=== PATIENT | male | born 1935 | race Caucasian/White ===

== ENCOUNTER → 2016-03-26 | Outpatient (CLI) | payer MEDICARE, OTHER ==
[~2016-03-26] MED LIST: ASPI325T PO; AUGM875T PO; BACT800T5 PO; CARV3.125 PO; CEFT500T3 PO; COLA100C3 PO; DIGO.125 PO; DIPH25 PO; DIPH25CA PO; DOCU1CAP39 PO; FISH1000 PO; FISH100020 PO; FURO20TA PO; FURO40TA PO; HYDR-3516 PO; HYDR-3533 PO; KLOR25PO2; MULT1TAB84 PO; NITR0.4S SL; POTA1TAB4 PO; PRAD150C PO; PRED20 PO; RAMI10CA PO; RANI150 PO; SIMV20TA PO; SIMV40TA PO; SPIR25TA PO; TAB-TAB PO; TOPR50TA PO; VITA100018 PO; VITA100064 PO; ZOFR4TAB3 SL
[2016-03-26 13:03] LABS: AUTOMATED NEUTROPHIL # 5.1 TH/MM3 (1.8-7.7); BASOPHIL # 0.1 TH/MM3 (0-0.2); BASOPHIL % 1.1 % (0.0-2.0); EOSINOPHIL # 0.5 TH/MM3 (0-0.4); EOSINOPHIL % 5.4 % (0.0-4.0); HEMATOCRIT 41.9 % (39.0-51.0); HEMO FLAGS DIFF FINAL; LYMPH % 23.5 % (9.0-44.0); MEAN CELL VOLUME 89.1 FL (80.0-100.0); MEAN CORPUSCULAR HEMOGLOBIN 29.3 PG (27.0-34.0); MEAN CORPUSCULAR HGB CONC 32.8 % (32.0-36.0); MONO % 9.8 % (0.0-8.0); NEUT % 60.2 % (16.0-70.0); PLATELET COUNT 204 TH/MM3 (150-450); WHITE BLOOD COUNT 8.4 TH/MM3 (4.0-11.0)
[2016-03-26 13:44] LABS: ANION GAP 5 MEQ/L (5-15); AST (GOT) 18 U/L (15-37); BICARBONATE 29.3 MEQ/L (21.0-32.0); BLOOD UREA NITROGEN 39 MG/DL (7-18); CHLORIDE 106 MEQ/L (98-107); GLOMERULAR FILTRATION RATE 52 ML/MIN (>89); POTASSIUM 4.9 MEQ/L (3.5-5.1); SODIUM (NA) 140 MEQ/L (136-145)
[2016-03-26 13:55] LABS: ALKALINE PHOSPHATASE 55 U/L (45-117); ALT (GPT) 18 U/L (12-78); HDL CHOLESTEROL 49.3 MG/DL (40.0-60.0); LDL CHOLESTEROL 46 MG/DL (0-99); TOTAL BILIRUBIN ADULT 0.5 MG/DL (0.2-1.0)
== END ==
LOC: PLAB 03-23 11:57
PROVIDERS: ATTEND Internal Medicine
DX: E78.5 Hyperlipidemia, unspecified (principal); I10 Essential (primary) hypertension; N19 Unspecified kidney failure; Z00.00 Encounter for general adult medical examination without abnormal findings
CPT/HCPCS: 36415; 80053; 80061; 84443; 85025

== ENCOUNTER 2016-05-03 19:41 | Observation (INO) | payer MEDICARE, OTHER ==
[~2016-05-03] VITALS: Ht 170.2 cm; Wt 119.5 kg
[~2016-05-03 19:41] MED LIST changes: -ASPI325T PO; -BACT800T5 PO; -CARV3.125 PO; -CEFT500T3 PO; -COLA100C3 PO; -DIPH25CA PO; -FISH100020 PO; -FURO20TA PO; -FURO40TA PO; -HYDR-3516 PO; -KLOR25PO2; -MULT1TAB84 PO; -NITR0.4S SL; -POTA1TAB4 PO; -SIMV40TA PO; -SPIR25TA PO; -VITA100064 PO
[2016-05-03 20:33] VITALS: BP 156/73; PULSE 65; RESP 18; TEMP 99.1; O2SAT 96
[2016-05-03 22:00] VITALS: BP 126/73; PULSE 68; RESP 18; TEMP 98; O2SAT 93
[2016-05-03 22:26] VITALS: BP 156/73; PULSE 65; RESP 18; TEMP 99.1; O2SAT 96
[2016-05-03] MEDS ORDERED: MORPHINE SULFATE 4 MG/ML INJ IV PUSH ONE (22:45)
[2016-05-03] MEDS ORDERED: ONDANSETRON HCL 4 MG/2 ML VIAL IVP ONE (22:45)
[2016-05-03] MEDS ORDERED: RAMI10CA PO (22:54)
[2016-05-03] MEDS ORDERED: SPIR25TA PO (22:54)
[2016-05-03] MEDS ORDERED: NITR0.4S SL (22:54)
[2016-05-03] MEDS ORDERED: FURO20TA PO (22:54)
[2016-05-03] MEDS ORDERED: KLOR25PO2 (22:54)
[2016-05-03] MEDS ORDERED: FISH100020 PO (22:54)
[2016-05-03] MEDS ORDERED: SIMV40TA PO (22:54)
[2016-05-03] MEDS ORDERED: VITA100064 PO (22:54)
[2016-05-03] MEDS ORDERED: DIPH25CA PO (22:54)
[2016-05-03] MEDS ORDERED: PRAD150C PO (22:54)
[2016-05-03] MEDS ORDERED: MULT1TAB84 PO (22:54)
--- NOTE | 2016-05-03 22:55 | PD ---
HPI Chief Complaint: Abdominal Pain Time Seen by Provider: 22:44 Travel History International Travel<30 days: No Contact w/Intl Traveler<30days: No Traveled to known affect area: No History of Present Illness HPI 80-year-old male presents to the emergency department by private transportation for complaint of abdominal pain since approximately 10 this morning. Patient has noticed over the past 3 days that on Saturday had a loose stool Saturday and Saturday and a small stool today had a small bowel movement while in the waiting room but started noticing right-sided abdominal pain right lower quadrant pain that has progressively worsened with feeling of distention and bloating for stool production some flatus and increased eructation. Patient is status post appendectomy. Patient has history of previous diverticulitis. Patient does not report any chest pain or shortness of breath but does note abdominal pain worsens when he takes a deep breath. No recent respiratory illness febrile illness or antibiotic. Patient denies dysuria frequency urgency or hematuria. Patient is prescribed Pradaxa for history of atrial fibrillation. PFSH Past Medical History Narrative Medical Atrial fibrillation cardiac catheterization with stent placement [place] CAD AICD/ pacemaker dyslipidemia CHF hypertension kidney stone diverticulitis prostate cancer skin cancer tonsillectomy appendectomy; occasional alcohol use; nursing notes reviewed Hx Anticoagulant Therapy: Yes (PRADAXA) Atrial Fibrillation: Yes Heart Rhythm Problems: Yes (AFIB) Cancer: Yes (approximately) Cardiac Catheterization: Yes Cardiovascular Problems: Yes (AICD) High Cholesterol: Yes Chemotherapy: No Chest Pain: No Congestive Heart Failure: Yes Coronary Artery Disease: Yes Diminished Hearing: No Endocrine: No Gastrointestinal Disorders: Yes ( DIVERTICULITIS) Genitourinary: Yes Hypertension: Yes Immune Disorder: No Implanted Vascular Access Dvce: Yes Kidney Stones: Yes Musculoskeletal: No Neurologic: No Psychiatric: No Reproductive: No Respiratory: No Immunizations Current: Yes Myocardial Infarction: Yes (2003) Radiation Therapy: Yes (LEFT EAR) Renal Failure: No Past Surgical History Abdominal Surgery: No AICD: Yes (SEP) Appendectomy: Yes Arteriovenous Shunt: No Cardiac Surgery: Yes (STENT, DEFIBRILATOR) Coronary Stent: Yes (X1) 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) Endocrine Surgery: No Eye Surgery: Yes Genitourinary Surgery: No Insulin Pump: No Joint Replacement: Yes (LEFT KNEE) Oral Surgery: No Pacemaker: Yes (PACER/DEFIB) Thoracic Surgery: No Tonsillectomy: Yes Other Surgery: Yes Social History Alcohol Use: Yes (1-2 DRINKS A DAY) Tobacco Use: No (QUIT: AGE 48) Substance Use: No Allergies-Medications (Allergen,Severity, Reaction): Coded Allergies: Isosorbide (Verified Allergy, Severe, Itching, 05/03/16) AND SWELLING Lipitor (Verified Adverse Reaction, Severe, SORE JOINTS, 05/03/16) Reported Meds & Prescriptions Reported Meds & Active Scripts Active Reported Multivitamin Adults (Multiple Vitamins W/ Minerals) 1 Tab 1 Tab PO DAILY Fish Oil 1000 mg (Harrah-3 Fatty Acids) 1 Cap Cap 1,000 Mg PO BID Nitrostat SL (Nitroglycerin) 0.4 Mg Subl 0.4 Mg SL DIRECTED PRN 1 tablet under the tongue as needed for chest pain. Repeat every 5 minutes for a total of 3 DOSES or call 911 if NO relief. Diphenhydramine (Diphenhydramine HCl) 25 Mg Cap 25 Mg PO Q6H PRN Vitamin D (Cholecalciferol) 1,000 Unit Tab 1,000 Units PO DAILY Ramipril 10 Mg Cap 10 Mg PO DAILY Simvastatin 40 Mg Tab 40 Mg PO HS Spironolactone 25 Mg Tab 25 Mg PO DAILY Pradaxa (Dabigatran) 150 Mg Cap 150 Mg PO BID Klor-Con 25 (Potassium Chloride) 25 Meq Pow 20 Furosemide 20 Mg Tab 120 Mg PO DAILY Review of Systems Except as stated in HPI: all other systems reviewed are Neg General / Constitutional: No: Fever, Chills HENT: No: Congestion Cardiovascular: No: Chest Pain or Discomfort Respiratory: No: Shortness of Breath Gastrointestinal: Positive: Nausea, Abdominal Pain, Changes in Bowel Habits, No: Vomiting, Diarrhea, Hematemesis, Hematochezia, Loss of Appetite Genitourinary: No: Urgency, Frequency, Dysuria, Flank Pain Musculoskeletal: No: Myalgias, Arthralgias Skin: No Rash Neurologic: No: Weakness, Dizziness, Syncope Psychiatric: No: Anxiety Endocrine: No: Heat Intolerance Hematologic/Lymphatic: No: Easy Bruising Physical Exam Narrative GENERAL: Well-developed well-nourished male in no acute distress no respiratory distress SKIN: Warm and dry. HEAD: Normocephalic. EYES: No scleral icterus. No injection or drainage. NECK: Supple, trachea midline. No JVD or lymphadenopathy. CARDIOVASCULAR: Regular rate and rhythm without murmurs, gallops, or rubs. RESPIRATORY: Breath sounds equal bilaterally. No accessory muscle use. GASTROINTESTINAL: Abdomen soft, right-sided abdominal tenderness without guarding or rebound right lower quadrant greater than right upper quadrant tenderness, nondistended. MUSCULOSKELETAL: No cyanosis, or edema. BACK: Nontender without obvious deformity. No CVA tenderness. Data Data Last Documented VS Vital Signs Date Time Temp Pulse Resp B/P Pulse Ox O2 Delivery O2 Flow Rate FiO2 05/04/16 02:20 62 16 140/72 93 Room Air 05/03/16 22:26 99.1 Orders Complete Blood Count With Diff (05/03/16 22:44) Comprehensive Metabolic Panel (05/03/16 22:44) Lipase (05/03/16 22:44) Urinalysis - C+S If Indicated (05/03/16 22:44) Iv Access Insert/Monitor (05/03/16 22:44) Ecg Monitoring (05/03/16 22:44) Oximetry (05/03/16 22:44) Morphine Inj (Morphine Inj) (05/03/16 22:45) Ondansetron Inj (Zofran Inj) (05/03/16 22:45) Chest, Single Ap (05/03/16 22:44) Digoxin (05/03/16 22:44) Sodium Chlor 0.9% 1000 Ml Inj (Ns 1000 M (05/03/16 22:45) Ct Abd/Pel W Iv Contrast(Rout) (05/04/16 ) Sodium Chlor 0.9% 250 Ml Inj (Ns 250 Ml (05/04/16 00:00) Iodixanol 320 Inj (Rad Ct) (Visipaque 32 (05/04/16 00:28) Sodium Chlor 0.9% 250 Ml Inj (Ns 250 Ml (05/04/16 01:00) Piperacil-Tazo 3.375 Gm Premix (Zosyn 3. (05/04/16 01:00) Potassium, Serum (K) (05/04/16 01:00) Admit Order (Ed Use Only) (05/04/16 ) ^ Saline Lock (05/04/16 02:49) Resp Oxygen Say C Titrat 1-4 L (05/04/16 ) ^ Notify Dr: Other (05/04/16 02:49) Sodium Chloride 0.9% Flush (Ns Flush) (05/04/16 09:00) Sodium Chloride 0.9% Flush (Ns Flush) (05/04/16 03:00) Consult Urology (05/04/16 02:49) Labs Laboratory Tests Test 05/03/16 05/04/16 05/04/16 23:10 00:08 01:50 White Blood Count 15.1 TH/MM3 Red Blood Count 4.92 MIL/MM3 Hemoglobin 14.3 GM/DL Hematocrit 43.9 % Mean Corpuscular Volume 89.2 FL Mean Corpuscular Hemoglobin 29.0 PG Mean Corpuscular Hemoglobin 32.5 % Concent Red Cell Distribution Width 13.4 % Platelet Count 208 TH/MM3 Mean Platelet Volume 9.7 FL Neutrophils (%) (Auto) 77.6 % Lymphocytes (%) (Auto) 10.2 % Monocytes (%) (Auto) 8.8 % Eosinophils (%) (Auto) 0.5 % Basophils (%) (Auto) 2.9 % Neutrophils # (Auto) 11.8 TH/MM3 Lymphocytes # (Auto) 1.5 TH/MM3 Monocytes # (Auto) 1.3 TH/MM3 Eosinophils # (Auto) 0.1 TH/MM3 Basophils # (Auto) 0.4 TH/MM3 CBC Comment AUTO DIFF Differential Comment AUTO DIFF CONFIRMED Platelet Estimate NORMAL Platelet Morphology Comment NORMAL Red Cell Morphology Comment NORMAL Sodium Level 137 MEQ/L Potassium Level 5.5 MEQ/L 4.7 MEQ/L Chloride Level 101 MEQ/L Carbon Dioxide Level 29.0 MEQ/L Anion Gap 7 MEQ/L Blood Urea Nitrogen 41 MG/DL Creatinine 1.90 MG/DL Estimat Glomerular Filtration 34 ML/MIN Rate Random Glucose 130 MG/DL Calcium Level 9.3 MG/DL Total Bilirubin 1.1 MG/DL Aspartate Amino Transf 39 U/L (AST/SGOT) Alanine Aminotransferase 20 U/L (ALT/SGPT) Alkaline Phosphatase 70 U/L Total Protein 7.9 GM/DL Albumin 3.4 GM/DL Lipase 116 U/L Digoxin Level 0.1 NG/ML Urine Color DANNY Urine Turbidity CLOUDY Urine pH 6.0 Urine Specific [place] 1.017 Urine Protein 30 mg/dL Urine Glucose (UA) NEG mg/dL Urine Ketones TRACE mg/dL Urine Occult Blood LARGE Urine Nitrite NEG Urine Bilirubin NEG Urine Leukocyte Esterase TRACE Urine RBC INNUM /hpf Urine WBC 6-8 /hpf Urine Squamous Epithelial 0-5 /hpf Cells Urine Bacteria NONE /hpf Microscopic Urinalysis Comment CULT NOT INDICATED MDM Medical Decision Making Medical Screen Exam Complete: Yes Emergency Medical Condition: Yes Medical Record Reviewed: Yes (is) Interpretation(s) Last Impressions Abdomen/Pelvis CT 05/04/16 0000 Signed Impressions: Service Date/Time: Wednesday, May 04, 2016 00:11 - CONCLUSION: 1. Bladder mass involving the right lateral wall of the urinary bladder with resulting obstruction of the right UVJ. 2. Colonic diverticulosis. Jayson Lopez Jr., MD Chest X-Ray 05/03/16 2244 Signed Impressions: Service Date/Time: April 22:55 - CONCLUSION: 1. Mild cardiomegaly. Mild elevation right hemidiaphragm. No focal consolidation or effusion. Osman Perez MD CBC & BMP Diagram 05/03/16 23:10 05/04/16 01:50 Vital Signs Date Time Temp Pulse Resp B/P Pulse Ox O2 Delivery O2 Flow Rate FiO2 05/04/16 02:20 62 16 140/72 93 Room Air 05/04/16 01:22 60 18 144/73 92 Room Air 05/03/16 23:38 59 18 136/61 93 Room Air 05/03/16 23:35 16 05/03/16 23:31 60 18 136/61 93 Room Air 05/03/16 22:30 20 05/03/16 22:26 99.1 65 18 156/73 96 05/03/16 22:00 98.0 68 18 126/73 93 Room Air 05/03/16 20:33 99.1 65 18 156/73 96 Differential Diagnosis Abdominal pain, diverticulitis, bowel obstruction, biliary colic, UTI, renal colic; also to consider ischemic bowel Narrative Course IV access obtained specimens collected and sent for resulting; patient administered maintenance IV fluids at 100 cc an hour, morphine sulfate 3 mg IV, Zofran 4 mg IV, patient will be kept nothing by mouth, patient sent for CT abdomen and pelvis Patient administered IV antibiotic with zosyn CT resulted and patient identified to have bladder wall mass with obstructive uropathy affecting the left ureter and left kidney with hydronephrosis and perinephric stranding; patient informed of imaging results along with daughter at bedside Plan to admit patient for obstructive uropathy renal insufficiency and bladder mass; case discussed with medicine with consult to patient's urologist Dr. Roberts' s Patient resting comfortably --no c/o pain--aware of plan for admission and transfer to [facility] with urology consult for the AM. Critical Care Narrative Aggregate critical care time was 35 minutes. Time to perform other separately billable procedures was not included in the critical care time. My time did not include minutes spent treating any other patients simultaneously or on activities that did not directly contribute to the patient's treatment. The services I provided to this patient were to treat and/or prevent clinically significant deterioration that could result in: Perforated viscus, sepsis, I provided critical care services requiring my management, as noted below: Chart data review, documentation time, medication orders and management, vital sign assessments/reviewing monitor data, ordering and reviewing lab tests, ordering and interpreting/reviewing x-rays and diagnostic studies, care of the patient and discussion of the patient with the admitting physicians. Physician Communication Physician Communication call placed to service -- per Dr Valenzuela --admit to [facility] w consult to Dr Grubbs (known to the patient) Diagnosis Primary Impression: Obstructive uropathy Additional Impressions: Renal insufficiency Bladder mass Admitting Information Admitting Physician Requests: Admit Brittani Marquis MD May 03, 2016 22:55
--- NOTE | 2016-05-03 23:03 | RADHPO ---
EXAM DATE/TIME: 05/03/2016 22:55 [facility] COMPARISON: No previous studies available for comparison. INDICATIONS : Shortness of breath; evaluate for free air. MEDICAL HISTORY : Congestive heart failure. Myocardial infarction. Afib. SURGICAL HISTORY : Pacemaker. Defibrillator. Cardiac stent. Ablation. ENCOUNTER: Initial ACUITY: 1 day PAIN SCORE: 0/10 LOCATION: Bilateral chest FINDINGS: Pacer leads are present but tips are not visualized. Heart size mildly enlarged. No focal consolidati on or effusion. Elevated right hemidiaphragm. No pneumothorax. CONCLUSION: 1. Mild cardiomegaly. Mild elevation right hemidiaphragm. No focal consolidation or effusion. Osman Perez MD on May 03, 2016 at 23:00 Board Certified Radiologist. This report was verified electronically.
[2016-05-03 23:31] VITALS: BP 136/61; PULSE 60; RESP 18; O2SAT 93
[2016-05-03 23:34] LABS: AUTOMATED NEUTROPHIL # 11.8 TH/MM3 (1.8-7.7); BASOPHIL # 0.4 TH/MM3 (0-0.2); BASOPHIL % 2.9 % (0.0-2.0); EOSINOPHIL # 0.1 TH/MM3 (0-0.4); EOSINOPHIL % 0.5 % (0.0-4.0); HEMATOCRIT 43.9 % (39.0-51.0); LYMPH % 10.2 % (9.0-44.0); LYMPHOCYTE # 1.5 TH/MM3 (1.0-4.8); MEAN CELL VOLUME 89.2 FL (80.0-100.0); MEAN CORPUSCULAR HGB CONC 32.5 % (32.0-36.0); MONO % 8.8 % (0.0-8.0); NEUT % 77.6 % (16.0-70.0); PLATELET COUNT 208 TH/MM3 (150-450); RED BLOOD COUNT 4.92 MIL/MM3 (4.50-5.90); RED CELL DISTRIBUTION WIDTH 13.4 % (11.6-17.2); WHITE BLOOD COUNT 15.1 TH/MM3 (4.0-11.0)
[2016-05-03 23:36] LABS: HEMO FLAGS AUTO DIFF
[2016-05-03 23:38] VITALS: BP 136/61; PULSE 59; RESP 18; O2SAT 93
[2016-05-03 23:42] LABS: CHLORIDE 101 MEQ/L (98-107); SODIUM (NA) 137 MEQ/L (136-145)
[2016-05-03 23:44] LABS: POTASSIUM 5.5 MEQ/L (3.5-5.1)
[2016-05-03 23:46] LABS: ANION GAP 7 MEQ/L (5-15); BLOOD UREA NITROGEN 41 MG/DL (7-18)
[2016-05-03 23:47] LABS: PLATELET ESTIMATE SMEAR NORMAL (NORMAL); PLATELET MORPHOLOGY NORMAL (NORMAL); SCAN/DIFF AUTO DIFF CONFIRMED
[2016-05-03 23:49] LABS: ALT (GPT) 20 U/L (12-78); AST (GOT) 39 U/L (15-37); GLOMERULAR FILTRATION RATE 34 ML/MIN (>89)
[2016-05-03 23:50] LABS: TOTAL BILIRUBIN ADULT 1.1 MG/DL (0.2-1.0)
[2016-05-03 23:51] LABS: ALKALINE PHOSPHATASE 70 U/L (45-117)
[2016-05-04] VITALS (10 sets, daily range): BP systolic 117–162; BP diastolic 67–83; PULSE 59–65; RESP 16–19; TEMP 97.4; O2SAT 92–99
[2016-05-04 00:15] LABS: BLOOD, URINE LARGE (NEG); GLUCOSE,URINE NEG (NEG); KETONE, URINE TRACE mg/dL (NEG); NITRITE,URINE NEG (NEG)
[2016-05-04 00:26] LABS: RBC, URINE INNUM /hpf (0-3); SQUAMOUS EPITHELIAL CELL URINE 0-5 /hpf (0-5); URINE COLOR AMBER (YELLW/STRAW)
[2016-05-04 00:27] LABS: DIGOXIN 0.1 NG/ML (0.8-2.0)
[2016-05-04 00:27] LABS: COMMENT (UR) CULT NOT INDICATED; CULTURE IF INDICATED CULT NOT INDICATED
[2016-05-04] MEDS ORDERED: IODIXANOL 320 MG/ML 10 ML VIAL (for Rad CT) IV ONE (00:28)
--- NOTE | 2016-05-04 00:50 | RADHPO ---
EXAM DATE/TIME: 05/04/2016 00:11 [facility] COMPARISON: No previous studies available for comparison. INDICATIONS : Right lower quadrant pain radiating into right groin. IV CONTRAST: 50 cc Visipaque (iodixanol) IV ORAL CONTRAST: No oral contrast ingested. RADIATION DOSE: 22.35 CTDIvol (mGy) MEDICAL HISTORY : Diverticulitis. Carcinoma, prostate. Cardiovascular disease SURGICAL HISTORY : Appendectomy. Coronary artery stent.Defibrillator. ENCOUNTER: Initial ACUITY: 1 day PAIN SCALE: 2/10 LOCATION: Right lower quadrant TECHNIQUE: Volumetric scanning of the abdomen and pelvis was performed. Using automated exposure control and ad justment of the mA and/or kV according to patient size, radiation dose was kept as low as reasonably achievable to obtain optimal diagnostic quality images. FINDINGS: LOWER LUNGS: The visualized lower lungs are clear. LIVER: Homogeneous density without lesion. There is no dilation of the biliary tree. No calcified gallston es. SPLEEN: Normal size without lesion. PANCREAS: Within normal limits. KIDNEYS: There is hydronephrosis and hydroureter on the right with stranding of the fat within the renal hilum and adjacent to the proximal ureter. No perinephric fluid collection. No stones. Left kidney is unre markable. ADRENAL GLANDS: Within normal limits. VASCULAR: Diffuse calcified plaque throughout the abdominal aorta. No aneurysmal change. BOWEL/MESENTERY: The stomach, small bowel, and colon demonstrate no acute abnormality. There is no free intraperitone al air or fluid. Scattered colonic diverticuli without acute inflammation. ABDOMINAL WALL: Within normal limits. RETROPERITONEUM: There is no lymphadenopathy. BLADDER: The urinary bladder is abnormal with a mass involving the right lateral bladder wall. This results in obstruction of the right UVJ. The mass measures approximately 6.5 x 2.0 cm. No appreciable adenopath y involving the pelvis. REPRODUCTIVE: Within normal limits. INGUINAL: There is no lymphadenopathy or hernia. MUSCULOSKELETAL: A degenerative lumbar spine. CONCLUSION: 1. Bladder mass involving the right lateral wall of the urinary bladder with resulting obstruction of the right UVJ. 2. Colonic diverticulosis. Jayson Lopez Jr., MD on May 04, 2016 at 0:43 Board Certified Radiologist. This report was verified electronically.
[2016-05-04] MEDS ORDERED: SODIUM CHLOR 0.9% 250 ML INJ 250 ML IV ONE ×2 (01:00)
[2016-05-04] MEDS ORDERED: PIPERACIL-TAZO 3.375 GM PREMIX 50 ML IV ONE (01:00)
[2016-05-04] MEDS ORDERED: SODIUM CHLORIDE 0.9% FLUSH 10 ML FLUSH IVF PRN (03:00)
[2016-05-04] MEDS ORDERED: NITROGLYCERIN 0.4 MG SL 25 TABS/BTL SL PRN (03:15)
[2016-05-04] MEDS ORDERED: MORPHINE SULFATE 4 MG/ML INJ IV PUSH PRN (03:15)
[2016-05-04] MEDS ORDERED: diphenhydrAMINE HCL 25 MG CAP PO PRN (03:15)
[2016-05-04] MEDS: cefTRIAXone INJ 1,000 MG in SODIUM CHLORIDE 0.9% INJ 100 ML IV SCH (05:01)
[2016-05-04] MEDS: SODIUM CHLOR 0.9% 1000 ML INJ 1,000 ML IV SCH ×3 (05:57→18:45)
[2016-05-04] MEDS: SODIUM CHLORIDE 0.9% FLUSH 10 ML FLUSH IV FLUSH SCH ×2 (08:52→20:44)
--- NOTE | 2016-05-04 14:24 | MH ---
cc: ROLAND BUTT MD DATE OF ADMISSION: 05/04/2016 CHIEF COMPLAINT Abdominal pain. HISTORY OF PRESENT ILLNESS This is an 80-year-old very pleasant male with past medical and surgical history significant for atrial fibrillation, cardiac catheterization with stent placement, history of heart attack, coronary artery disease, AICD and pacemaker placement, hyperlipidemia, congestive heart failure, hypertension, kidney stone, diverticulitis, prostate cancer, skin cancer, tonsillectomy, appendectomy and on Pradaxa, who came to the ER at [facility] complaining of abdominal pain since 10 o'clock yesterday morning. The patient noticed that over the last three days since Saturday he had loose stool, Saturday and Saturday had small stool yesterday and small bowel movement while in the waiting room. He started noticing right-sided abdominal pain, right lower quadrant pain that has progressively got worse and the feeling of abdominal distention and bloating for the stool production, some flatus, increased eructation. The patient is status post appendectomy. The patient has a history of previous diverticulitis. The patient does not report any chest pain or shortness of breath but does note abdominal pain worse when he takes a deep breath. No recent respiratory illness, febrile illness or antibiotic. The patient denies any frequent urination or burning urination. Recently he had some nausea and vomiting which resolved. He takes Pradaxa for atrial fibrillation. Other than that nothing significant. PAST MEDICAL HISTORY As dictated above. PAST SURGICAL HISTORY 1. Coronary stenting x1. 2. Defibrillator and pacemaker placement. 3. Left knee surgery. 4. Tonsillectomy. SOCIAL HISTORY He drinks 1-2 drinks a day. Quit smoking 50 years ago, total smoking x 20 years, one pack a day. Lives at home alone. He is retired from the [employer]. FAMILY HISTORY Significant for daughter with diverticulitis and daughter with Crohn's disease. ALLERGIES 1. ISOSORBIDE CAUSES SEVERE SWELLING. 2. LIPITOR. MEDICATIONS 1. Multivitamin p.o. daily. 2. Fish oil 1000 mg p.o. b.i.d. 3. Nitrostat sublingual 0.4 mg as directed p.r.n. chest pain. 4. Diphenhydramine 25 mg p.o. q.6h. 5. Vitamin-D 1000 units p.o. daily. 6. Ramipril 10 mg p.o. daily. 7. Simvastatin 40 mg p.o. h.s. 8. Spironolactone 25 mg p.o. daily. 9. Pradaxa 150 mg p.o. b.i.d. 10.Klor-Con 25 mEq daily. 11.Furosemide 20 mg p.o. daily. REVIEW OF SYSTEMS Positive for abdominal pain, distention, mild nausea. All other review of systems are negative. PHYSICAL EXAMINATION GENERAL: This is an 80-year-old male sitting on the bed not in acute distress. VITAL SIGNS: Temperature 99.1, heart rate 60, respirations 18, blood pressure 117/67. O2 saturation 92% on room air. HEENT: Normocephalic, atraumatic. EOMI. PERRL. Oral mucosa moist. NECK: Supple. No visible thyromegaly or neck mass. Trachea is central. CV: Regular rate and rhythm. LUNGS: Respirations clear to auscultation bilaterally. ABDOMEN: Soft. Tender on superficial palpation. Deep palpation not done. Bowel sounds audible. EXTREMITIES: No cyanosis. No clubbing. Full range of motion of all extremities. NEUROLOGIC: Awake, alert, oriented x4. No focal deficit. SKIN: Warm and dry. PSYCHIATRIC: The patient is cooperative. LABORATORY CBC showed WBC count 15.1 high, neutrophils 77.6 high, monos 8.8 high, hemoglobin and hematocrit normal, platelet count 208 normal. CMP was remarkable for potassium 5.5 which was high, now it is 4.7, BUN 41 high, creatinine 1.90 high, glucose 130 high, total bilirubin 1.1 high, AST 39 high, lipase 116, LFTs normal except for AST 39 high. Digoxin level 0.1 which is low. Urine examination showed 6-8 wbc, innumerable rbc, trace leukocyte esterase, large occult blood, ketones trace, protein 30 Culture not indicated. IMAGING Chest x-ray was done and shows mild cardiomegaly, mild elevation of right hemidiaphragm. No focal consolidation or effusion. CT abdomen and pelvis was done and shows a bladder mass involving the right lateral wall of the urinary bladder with resulting obstruction of the right UVJ. Chronic diverticulosis. ASSESSMENT AND PLAN 1. This is an 80-year-old male who came to the ER with abdominal pain, diagnosed with a bladder mass involving the right lateral wall of the urinary bladder with resulting obstruction of the right UVJ. Urology is consulted. Patient will be transferred to the [facility]. Further recommendation per urology. 2. Elevated BUN and creatinine, most likely obstructive uropathy. 3. Hematuria secondary to bladder tumor. 4. Leukocytosis. Will monitor. 5. Hyperkalemia, which has resolved. 6. Hypertension. Continue the home medication, ramipril. 7. History of atrial fibrillation. The patient is on Pradaxa. Hold the Pradaxa because of hematuria. 8. Hypokalemia. Continue home medication. 9. History of cardiac disease. Continue home medication. The patient is status post stent placement in the past and AICD and pacemaker placement. 10.History of congestive heart failure, most likely chronic or systolic heart failure. Continue the home medication. 11.History of prostate cancer. 12.History of diverticulosis which shows on the CT of the abdomen and pelvis. 13.DVT prophylaxis with SCD. 14.GI prophylaxis with Protonix 40 mg p.o. daily. 15.Hyperlipidemia. Continue pravastatin 80 mg p.o. daily. 16.Urinary tract infection. The patient is started on Rocephin one gram IV daily. 17.We are going to manage the patient on a daily basis and make recommendations on a daily basis. Roland Butt MD EA/AMI /1:31 PM /2:02 PM
[2016-05-04] MEDS: PRAVASTATIN SOD 80 MG TAB PO SCH (20:44)
--- NOTE | 2016-05-04 21:10 | MB ---
cc: CIERA GUTIÉRREZ MD DATE OF CONSULTATION 05/04/16 REASON FOR CONSULTATION 1. Bladder mass 2. Right hydronephrosis 3. History of gross hematuria 4. History of BPH status post TURP HISTORY OF PRESENT ILLNESS The patient is an 80-year-old male with history of benign prostatic hypertrophy status post TURP years ago who presented to [facility] ER last night with complaints of right-sided abdominal pain radiating to his right flank since 10 o'clock yesterday morning. In the emergency room, he had a CT abdomen and pelvis with IV contrast which showed mild right hydronephrosis with a possible mass in his bladder. Urology was consulted for this finding. In discussion with the patient, the patient started having loose stools three days ago. Over the course of next three days he started developing right-sided flank pain radiating to his right groin with a feeling of some abdominal distension and bloating. He has also had intermittent gross hematuria for the last couple months as well. Denies dysuria, urgency, frequency or incontinence. Denies unexplained weight loss or any new or unusual bone or back pain. Overnight into today his pain has significantly improved. He has been voiding on his own which has been tea-colored. He denies fevers, chills, nausea, vomiting at this time. PAST MEDICAL HISTORY 1. History of prostate cancer 2. History of kidney stones 3. Atrial fibrillation. 4. History of heart attack 5. Coronary artery disease, 6. Hypertension, 7. Diverticulitis 8. Skin cancer. PAST SURGICAL HISTORY 1. History of tonsillectomy, 2. Appendectomy 3. TURP 4. AICD and pacemaker placement 5. Cardiac catheterization with stent placement 6. Left knee surgery ALLERGIES LIPITOR MEDICATIONS 1. 2. Fish oil 3. Nitrostat. 4. Ramipril 10 mg p.o. daily. 5. Simvastatin 40 mg p.o. q.h.s. 6. Spirolactone 25 mg p.o. daily 7. Pradaxa 150 mg by mouth twice a day 8. Furosemide 20 mg p.o. daily. FAMILY HISTORY Negative for urolithiasis or genitourinary malignancy SOCIAL HISTORY Drinks 1-2 drinks a day, history of tobacco use but quit smoking 50 years ago, one-pack per day for 20 years. Lives at home alone and is retired from the [employer], REVIEW OF SYSTEMS See HPI otherwise 12-point review of systems was performed and otherwise was negative. PHYSICAL EXAMINATION VITAL SIGNS: Temperature 99,1, pulse 59, respiratory rate 80, BP 130/67, satting 99% in room air. GENERAL: He is alert and oriented x3 in no apparent distress pleasant, cooperative gentleman appears stated age. HEAD: Normocephalic, atraumatic. NECK: Supple. Trachea is midline. No JVD. LUNGS: Clear to auscultation bilaterally. No wheezes, rales or rhonchi. HEART: Regular rate and rhythm. No murmurs, gallops or rubs. ABDOMEN: Soft, obese, nontender, nondistended. Positive bowel sounds. No CVA tenderness bilaterally. GENITOURINARY:: His penis is circumcised. Testes are descended bilaterally, normal size and consistency. Prostate exam not indicated at this time. EXTREMITIES: Nontender, no clubbing, cyanosis or edema. SKIN: No ulcers or rashes. PSYCHIATRIC: Normal affect. NEUROLOGIC: cranial nerves II-XII intact. Strength 5/5 in all four extremities. LABORATORY DATA White count 15.1, hemoglobin 14.3, hematocrit 43.9, platelet count 208. Sodium 137, potassium 4.7, chloride 101, bicarb 29, BUN 41, creatinine 1.90. His urine is cloudy with a pH of 6.0 with large occult blood, trace leukocyte esterase. IMAGING STUDIES CT abdomen pelvis with IV contrast images were reviewed were radiologist personally. The patient has mild right hydronephrosis with dilated ureter down to the level of his bladder with a possible mass on the right side of his bladder. No evidence of any kidney stones. ASSESSMENT AND PLAN The patient is an 80-year-old male with a history of prostate cancer, benign prostatic hypertrophy status post TURP as well as kidney stones who presents with intermittent gross hematuria and was found to have a bladder mass with some mild right hydronephrosis and renal insufficiency. Currently the patient is asymptomatic. Recommend conservative management at this time. Monitor his renal function. Continue antibiotics per primary team. A long as the patient maintains asymptomatic, he is okay to be discharged home from urology standpoint. He will need cystoscopy and possible TURBT which can be done on an outpatient basis. However, due to his anticoagulation he ideally would have to be off the Pradaxa for seven days prior performing any procedure. Thank you for the consult. Please call with any questions. MD SHERRILL Rivera/ /4:38 PM /8:41 PM
[2016-05-05] VITALS (7 sets, daily range): BP systolic 145–167; BP diastolic 73–91; PULSE 60–69; RESP 18–20; TEMP 97.3–98.7; O2SAT 93–96
[2016-05-05] MEDS: cefTRIAXone INJ 1,000 MG in SODIUM CHLORIDE 0.9% INJ 100 ML IV SCH (04:00)
[2016-05-05] MEDS: SODIUM CHLOR 0.9% 1000 ML INJ 1,000 ML IV SCH ×3 (04:45→14:45)
[2016-05-05 07:16] LABS: HEMATOCRIT 39.1 % (39.0-51.0); MEAN CELL VOLUME 88.7 FL (80.0-100.0); MEAN CORPUSCULAR HEMOGLOBIN 29.6 PG (27.0-34.0); MEAN CORPUSCULAR HGB CONC 33.4 % (32.0-36.0); PLATELET COUNT 202 TH/MM3 (150-450); RED BLOOD COUNT 4.41 MIL/MM3 (4.50-5.90); RED CELL DISTRIBUTION WIDTH 14.1 % (11.6-17.2); REVIEW FLAG FINAL; WHITE BLOOD COUNT 11.8 TH/MM3 (4.0-11.0)
[2016-05-05 07:43] LABS: BICARBONATE 25.7 MEQ/L (21.0-32.0); POTASSIUM 4.1 MEQ/L (3.5-5.1)
[2016-05-05] MEDS: SODIUM CHLORIDE 0.9% FLUSH 10 ML FLUSH IV FLUSH SCH ×2 (08:37→20:13)
--- NOTE | 2016-05-05 10:09 | HHI.PR ---
Subjective Remarks Patient has some pain in the right lower quadrant and right paraumbilical region. He feels like a fullness and discomfort. Which was not there last night. No nausea vomiting Still no bowel movement No trouble passing urine but some blood in it. No fever or chills No chest pain or shortness of breath No headache or dizziness Review of systems a 12 point system otherwise unremarkable Objective Objective Results - Vital Signs Date Time Temp Pulse Resp B/P Pulse Ox O2 Delivery O2 Flow Rate FiO2 05/05/16 08:00 97.6 60 18 154/91 95 05/05/16 04:00 97.4 69 19 161/73 93 05/05/16 00:00 98.2 63 18 157/79 94 05/04/16 20:00 97.4 65 19 152/83 94 05/04/16 17:09 59 16 162/82 99 Room Air 05/04/16 17:09 16 05/04/16 13:00 59 18 130/67 98 I/O 05/04/16 05/04/16 05/04/16 05/05/16 05/05/16 05/05/16 07:00 15:00 23:00 07:00 15:00 23:00 Intake Total 1150 ml 240 ml 1240 ml 240 ml Output Total 650 ml 25 ml Balance 1150 ml -410 ml 1240 ml 215 ml Intake Oral 240 ml 240 ml 240 ml IV Total 1150 ml 1000 ml Output Urine Total 650 ml 25 ml # Voids 4 2 2 Result Diagram: 05/05/16 0554 05/05/16 0554 Other Results Laboratory Tests Test 05/05/16 05:54 White Blood Count 11.8 Red Blood Count 4.41 Hemoglobin 13.0 Hematocrit 39.1 Mean Corpuscular Volume 88.7 Mean Corpuscular Hemoglobin 29.6 Mean Corpuscular Hemoglobin 33.4 Concent Red Cell Distribution Width 14.1 Platelet Count 202 Mean Platelet Volume 10.0 Sodium Level 139 Potassium Level 4.1 Chloride Level 105 Carbon Dioxide Level 25.7 Anion Gap 8 Blood Urea Nitrogen 42 Creatinine 1.52 Estimat Glomerular Filtration 44 Rate Random Glucose 127 Calcium Level 8.7 Physical Exam Physical Exam GENERAL: This is an 80-year-old male sitting on the bed not in acute distress. VITAL SIGNS: Reviewed HEENT: Normocephalic, atraumatic. EOMI. PERRL. Oral mucosa moist. NECK: Supple. No visible thyromegaly or neck mass. Trachea is central. CV: Regular rate and rhythm. LUNGS: Respirations clear to auscultation bilaterally. ABDOMEN: Soft. Tender in the right lower quadrant and right paraumbilical region. No rebound no guarding no rigidity Bowel sounds audible. EXTREMITIES: No cyanosis. No clubbing. Full range of motion of all extremities. Trace edema ankles both side NEUROLOGIC: Awake, alert, oriented x4. No focal deficit. SKIN: Warm and dry. PSYCHIATRIC: The patient is cooperative. Appropriate mood and affect A/P Assessment and Plan 1. This is an 80-year-old male who came to the ER with abdominal pain, diagnosed with a bladder mass involving the right lateral wall of the urinary bladder with resulting obstruction of the right UVJ. Urology consultation appreciated. As per patient Dr. Roberts told him to have cystoscopy coming Saturday. Still having pain will monitor Further recommendation per urology. 2. Elevated BUN and creatinine, improving on IV hydration, most likely obstructive uropathy. Will monitor 3. Hematuria secondary to bladder tumor. Monitor off of Pradaxa 4. Leukocytosis. Will monitor. Improving 5. Hyperkalemia, which has resolved. 6. Hypertension. Continue the home medication, ramipril. Monitor. Keep patient on when necessary medication 7. History of atrial fibrillation. The patient is on Pradaxa. Hold the Pradaxa because of hematuria. Control heart rate will monitor 8. Continue home medication as indicated. 9. History of cardiac disease. Continue home medication. The patient is status post stent placement in the past and AICD and pacemaker placement. 10.History of congestive heart failure, most likely chronic or systolic heart failure. Continue the home medication. 11.History of prostate cancer. 12.History of diverticulosis which shows on the CT of the abdomen and pelvis. 13.DVT prophylaxis with SCD. 14.GI prophylaxis with Protonix 40 mg p.o. daily. 15.Hyperlipidemia. Continue pravastatin 80 mg p.o. daily. 16.Urinary tract infection. The patient is started on Rocephin one gram IV daily. Will continue. UA report seen 17.We are going to manage the patient on a daily basis and make recommendations on a daily basis. Discussed with patient in detail and questions answered in detail detail fashion H&P previous notes meds labs and radiological data reviewed Discussed with Andrew Amezcua MD May 05, 2016 10:08
[2016-05-05] MEDS ORDERED: cloNIDine HCL 0.1 MG TAB PO PRN (10:15)
[2016-05-05] MEDS ORDERED: MAGNESIUM HYDROXIDE SUSP 30 ML CUP PO PRN (11:00)
[2016-05-05] MEDS: PRAVASTATIN SOD 80 MG TAB PO SCH (20:13)
[2016-05-05] MEDS ORDERED: NON-FORMULARY DRUG (Omega-3 Fatty Acids (Fish Oil 1000 mg) 1,000 MG) PO SCH (21:00)
[2016-05-05] MEDS: ACETAMINOPHEN/HYDROcodone 325 MG/5 MG TAB PO PRN (23:41)
[2016-05-06] VITALS (7 sets, daily range): BP systolic 118–175; BP diastolic 58–77; PULSE 60–72; RESP 18–21; TEMP 96.7–98.6; O2SAT 93–95
[2016-05-06] MEDS: SODIUM CHLOR 0.9% 1000 ML INJ 1,000 ML IV SCH ×3 (00:45→08:45)
[2016-05-06] MEDS: cefTRIAXone INJ 1,000 MG in SODIUM CHLORIDE 0.9% INJ 100 ML IV SCH (04:00)
[2016-05-06] MEDS ORDERED: LEVOFLOXACIN 500 MG TAB PO ONE (06:00)
[2016-05-06] MEDS: CHOLECALCIFEROL (VIT D3) 1000 UNIT TAB PO SCH (08:39)
[2016-05-06] MEDS: SODIUM CHLORIDE 0.9% FLUSH 10 ML FLUSH IV FLUSH SCH ×2 (08:40→20:58)
[2016-05-06 10:16] LABS: HEMATOCRIT 40.4 % (39.0-51.0); MEAN CELL VOLUME 89.8 FL (80.0-100.0); MEAN CORPUSCULAR HEMOGLOBIN 29.8 PG (27.0-34.0); MEAN CORPUSCULAR HGB CONC 33.2 % (32.0-36.0); PLATELET COUNT 214 TH/MM3 (150-450); RED CELL DISTRIBUTION WIDTH 14.1 % (11.6-17.2); REVIEW FLAG FINAL; WHITE BLOOD COUNT 14.5 TH/MM3 (4.0-11.0)
[2016-05-06 10:45] LABS: BICARBONATE 24.3 MEQ/L (21.0-32.0); POTASSIUM 4.4 MEQ/L (3.5-5.1)
--- NOTE | 2016-05-06 10:59 | HHI.PR ---
Subjective Remarks Patient has some no pain this morning No nausea vomiting Had good bowel movement No trouble passing urine but some blood in it. No fever or chills No chest pain or shortness of breath No headache or dizziness Review of systems a 12 point system otherwise unremarkable Objective Objective Results - Vital Signs Date Time Temp Pulse Resp B/P Pulse Ox O2 Delivery O2 Flow Rate FiO2 05/06/16 08:00 97.2 70 20 127/59 95 05/06/16 04:00 96.7 72 21 118/58 94 05/06/16 00:00 98.6 60 20 133/61 93 05/05/16 20:00 98.7 61 19 150/76 94 05/05/16 16:00 97.5 60 18 167/85 95 05/05/16 12:00 97.3 60 20 145/79 95 I/O 05/05/16 05/05/16 05/05/16 05/06/16 05/06/16 05/06/16 07:00 15:00 23:00 07:00 15:00 23:00 Intake Total 240 ml 840 ml Output Total 25 ml 500 ml 200 ml Balance 215 ml 340 ml -200 ml Intake Oral 240 ml 840 ml Output Urine Total 25 ml 500 ml 200 ml # Voids 2 3 2 # Bowel Movements 2 Result Diagram: 05/06/16 0955 05/05/16 0554 Other Results Laboratory Tests Test 05/06/16 09:55 White Blood Count 14.5 Red Blood Count 4.50 Hemoglobin 13.4 Hematocrit 40.4 Mean Corpuscular Volume 89.8 Mean Corpuscular Hemoglobin 29.8 Mean Corpuscular Hemoglobin 33.2 Concent Red Cell Distribution Width 14.1 Platelet Count 214 Mean Platelet Volume 9.7 Physical Exam Physical Exam GENERAL: This is an 80-year-old male sitting on the bed not in acute distress. VITAL SIGNS: Reviewed HEENT: Normocephalic, atraumatic. EOMI. PERRL. Oral mucosa moist. NECK: Supple. No visible thyromegaly or neck mass. Trachea is central. CV: Regular rate and rhythm. LUNGS: Respirations clear to auscultation bilaterally. ABDOMEN: Soft. Tender in the right lower quadrant and right paraumbilical region. No rebound no guarding no rigidity Bowel sounds audible. EXTREMITIES: No cyanosis. No clubbing. Full range of motion of all extremities. Trace edema ankles both side NEUROLOGIC: Awake, alert, oriented x4. No focal deficit. SKIN: Warm and dry. PSYCHIATRIC: The patient is cooperative. Appropriate mood and affect A/P Assessment and Plan 1. This is an 80-year-old male who came to the ER with abdominal pain, diagnosed with a bladder mass involving the right lateral wall of the urinary bladder with resulting obstruction of the right UVJ. Urology consultation appreciated. As per patient Dr. Roberts told him to have cystoscopy coming Saturday. Still having pain on and off. Will monitor. Patient is off of Ranexa from last 2. Elevated BUN and creatinine, improving on IV hydration, most likely obstructive uropathy. Will monitor 3. Hematuria secondary to bladder tumor. Monitor off of Pradaxa. Better no more blood in urine as per patient 4. Leukocytosis. Will monitor. Improving 5. Hyperkalemia, which has resolved. 6. Hypertension. Continue the home medication, ramipril. Monitor. Keep patient on when necessary medication 7. History of atrial fibrillation. The patient is on Pradaxa. Off of Pradaxa because of hematuria and for cystoscopy tomorrow. Control heart rate will monitor 8. Continue home medication as indicated. 9. History of cardiac disease. Continue home medication. The patient is status post stent placement in the past and AICD and pacemaker placement. 10. History of congestive heart failure, most likely chronic or systolic heart failure. Continue the home medication. 11.History of prostate cancer. 12.History of diverticulosis which shows on the CT of the abdomen and pelvis. 13.DVT prophylaxis with SCD. 14.GI prophylaxis with Protonix 40 mg p.o. daily. 15.Hyperlipidemia. Continue pravastatin 80 mg p.o. daily. 16.Urinary tract infection. The patient is started on Rocephin one gram IV daily. Will continue. UA report seen 17.We are going to manage the patient on a daily basis and make recommendations on a daily basis. Discussed with patient in detail and questions answered in detail detail fashion H&P previous notes meds labs and radiological data reviewed Discussed with Andrew Amezcua MD May 06, 2016 10:59
[2016-05-06] MEDS: PRAVASTATIN SOD 80 MG TAB PO SCH (20:57)
[2016-05-07] VITALS: BP 138/63; PULSE 60; RESP 21; TEMP 98.6; O2SAT 92
[2016-05-07] MEDS: ACETAMINOPHEN/HYDROcodone 325 MG/5 MG TAB PO PRN ×3 (02:07→11:57)
[2016-05-07 04:00] VITALS: BP 164/80; PULSE 60; RESP 20; TEMP 96.6; O2SAT 94
[2016-05-07] MEDS: cefTRIAXone INJ 1,000 MG in SODIUM CHLORIDE 0.9% INJ 100 ML IV SCH (04:09)
[2016-05-07 08:00] VITALS: BP 143/86; PULSE 60; RESP 22; TEMP 97; O2SAT 95
[2016-05-07] MEDS: CHOLECALCIFEROL (VIT D3) 1000 UNIT TAB PO SCH (08:43)
[2016-05-07] MEDS: SODIUM CHLORIDE 0.9% FLUSH 10 ML FLUSH IV FLUSH SCH (08:45)
--- NOTE | 2016-05-07 11:12 | HHI.PR ---
Subjective Remarks Patient has some no pain this morning No nausea vomiting Had good bowel movement No trouble passing urine but some blood in it. No fever or chills No chest pain or shortness of breath No headache or dizziness Review of systems a 12 point system otherwise unremarkable Objective Objective Results - Vital Signs Date Time Temp Pulse Resp B/P Pulse Ox O2 Delivery O2 Flow Rate FiO2 05/07/16 08:00 97.0 60 22 143/86 95 05/07/16 04:00 96.6 60 20 164/80 94 05/07/16 00:00 98.6 60 21 138/63 92 05/06/16 22:48 152/77 05/06/16 20:00 97.7 62 20 175/76 95 05/06/16 16:00 98.6 60 18 156/74 93 05/06/16 12:00 93 05/06/16 12:00 98.1 60 20 125/66 95 I/O 05/06/16 05/06/16 05/06/16 05/07/16 05/07/16 05/07/16 07:00 15:00 23:00 07:00 15:00 23:00 Intake Total 600 ml 480 ml 976 ml 960 ml Balance 600 ml 480 ml 976 ml 960 ml Intake Oral 600 ml 480 ml 240 ml 960 ml IV Total 736 ml # Voids 2 8 4 1 # Bowel Movements 2 1 1 Result Diagram: 05/06/1655 05/06/16954 Physical Exam Physical Exam GENERAL: This is an 80-year-old male sitting on the bed not in acute distress. VITAL SIGNS: Reviewed HEENT: Normocephalic, atraumatic. EOMI. PERRL. Oral mucosa moist. NECK: Supple. No visible thyromegaly or neck mass. Trachea is central. CV: Regular rate and rhythm. LUNGS: Respirations clear to auscultation bilaterally. ABDOMEN: Soft. Nontender. No rebound no guarding no rigidity Bowel sounds audible. EXTREMITIES: No cyanosis. No clubbing. Full range of motion of all extremities. Trace edema ankles both side NEUROLOGIC: Awake, alert, oriented x4. No focal deficit. SKIN: Warm and dry. PSYCHIATRIC: The patient is cooperative. Appropriate mood and affect A/P Assessment and Plan 1. This is an 80-year-old male who came to the ER with abdominal pain, diagnosed with a bladder mass involving the right lateral wall of the urinary bladder with resulting obstruction of the right UVJ. Urology consultation appreciated. As per patient Dr. Roberts who told RN that he will do cystoscopy once patient off of her XL for 7 days he will do it coming . 2. Elevated BUN and creatinine, improving/better on IV hydration 3. Hematuria secondary to bladder tumor. Resolved 4. Leukocytosis. No sign of infection 5. Hyperkalemia, which has resolved. 6. Hypertension. Continue the home medication, ramipril. Keep patient on when necessary medication 7. History of atrial fibrillation. The patient is on Pradaxa. Off of Pradaxa because of hematuria and for cystoscopy on . Control heart rate will monitor. Discussed with patient to os Dr. brumfield when he can he start Ranexa after cystoscopy. Patient understood 8. Continue home medication as indicated. 9. History of cardiac disease. Continue home medication. The patient is status post stent placement in the past and AICD and pacemaker placement. 10. History of congestive heart failure, most likely chronic or systolic heart failure. Continue the home medication. 11.History of prostate cancer. 12.History of diverticulosis which shows on the CT of the abdomen and pelvis. 13.DVT prophylaxis with SCD. 14.GI prophylaxis with Protonix 40 mg p.o. daily. 15.Hyperlipidemia. Continue pravastatin 80 mg p.o. daily. 16.Urinary tract infection questionable. The patient is started on Rocephin one gram IV daily. Plan for DC home. And to follow Dr. fuentes for cystoscopy on . Discussed with patient in detail and questions answered in detail detail fashion Discussed with RN. RN will get appointment for cystoscopy on and explained to patient when and where to come. Andrew Beaver MD May 07, 2016 11:12
[2016-05-07] MEDS ORDERED: CEFT500T3 PO (11:14)
[2016-05-07] MEDS ORDERED: HYDR-3516 PO (11:14)
--- NOTE | 2016-05-07 11:20 | HHI.DS ---
Discharge Summary Admission Date May 04, 2016 at 02:52 Admitting Diagnosis bladder mass; R obstructive uropathy; renal insufficiency (1) Prerenal azotemia Diagnosis: Principal (2) Leukocytosis Diagnosis: Principal (3) Renal insufficiency Diagnosis: Principal (4) Obstructive uropathy Diagnosis: Principal (5) Bladder mass Diagnosis: Principal Brief History She was admitted because of the abdominal pain and hematuria. CT scan was done. Showing better mass. Patient was transferred from [place] to [facility]. Urology saw patient. And as per urology patient need to be off of Ranexa for 7 days before cystoscopy. Patient had renal insufficiency which was monitored. Now improving. Seems like baseline. Also had hyperkalemia which is better. Patient was monitored off of Ranexa. No hematuria. Pain is better. Plan to discharge him home to be followed by primary care and Dr. brumfield as outpatient. Patient will have cystoscopy on . RN will inform Dr. fuentes and get appointment for cystoscopy before discharge. As discussed with her. CBC/BMP: 05/06/16 0955 05/06/16 0955 Significant Findings Laboratory Tests Test 05/05/16 05/06/16 05:54 09:55 White Blood Count 11.8 TH/MM3 14.5 TH/MM3 (4.0-11.0) (4.0-11.0) Red Blood Count 4.41 MIL/MM3 (4.50-5.90) Blood Urea Nitrogen 42 MG/DL (7-18) 42 MG/DL (7-18) Creatinine 1.52 MG/DL 1.72 MG/DL (0.60-1.30) (0.60-1.30) Estimat Glomerular Filtration 44 ML/MIN (>89) 38 ML/MIN (>89) Rate Random Glucose 127 MG/DL 196 MG/DL (74-106) (74-106) Pt Condition on Discharge: Stable Discharge Disposition: Discharge Home Discharge Instructions DIET: Follow Instructions for: Heart Healthy Diet Activities you can perform: Weight Bearing as Shanda Follow up Referrals: PCP Follow-up - 1 Week Urology - 05/10/16 New Medications: Cefuroxime (Ceftin) 500 Mg Tab 500 MG PO BID Infection #10 Ref 0 TAB Hydrocodone-Acetaminophen (Hydrocodone-Acetaminophen) 5-325 mg Tab 1 TAB PO Q4H PRN PAIN SCALE 1 TO 10 #30 TAB Continued Medications: Cholecalciferol (Vitamin D) 1,000 Unit Tab 1000 UNITS PO DAILY Nutritional Supplement #1 Ref 0 BOTTLE Diphenhydramine (Diphenhydramine) 25 Mg Cap 25 MG PO Q6H PRN ALLERGIES Ref 0 CAP Furosemide (Furosemide) 20 Mg Tab 120 MG PO DAILY #30 Ref 0 TAB Multiple Vitamins W/ Minerals (Multivitamin Adults) 1 Tab 1 TAB PO DAILY Nutritional Supplement Ref 0 TAB Nitroglycerin SL (Nitrostat SL) 0.4 Mg Subl 0.4 MG SL DIRECTED 1 tablet under the tongue as needed for chest pain. Repeat every 5 minutes for a total of 3 DOSES or call 911 if NO relief. PRN CHEST PAIN #100 Ref 0 TAB.SL Liberal-3 Fatty Acids (Fish Oil 1000 mg) 1 Cap Cap 1000 MG PO BID Ramipril (Ramipril) 10 Mg Cap 10 MG PO DAILY #30 Ref 0 CAP Simvastatin (Simvastatin) 40 Mg Tab 40 MG PO HS Cholesterol Management #30 Ref 0 TAB Spironolactone (Spironolactone) 25 Mg Tab 25 MG PO DAILY #30 Ref 0 TAB Discontinued Medications: Dabigatran (Pradaxa) 150 Mg Cap 150 MG PO BID Blood Clot Prevention #60 Ref 0 CAP Potassium Chloride (Klor-Con 25) 25 Meq Pow 20 Andrew Beaver MD May 07, 2016 11:20
[2016-05-07 12:00] VITALS: BP 132/68; PULSE 88; RESP 18; TEMP 97; O2SAT 97
== END 2016-05-07 12:54 | disposition home or self-care (01) ==
LOC: PHED 19:41 → PHEDA 05-04 02:52 → INTOOBSV 05-04 02:52 → PHEDH 05-04 06:31 → HOCA 05-04 19:34
PROVIDERS: ADMIT Specialist; ATTEND Specialist
DX: N32.9 Bladder disorder, unspecified (principal); N13.30 Unspecified hydronephrosis; I48.91 Unspecified atrial fibrillation; I11.0 Hypertensive heart disease with heart failure; I50.9 Heart failure, unspecified; N28.9 Disorder of kidney and ureter, unspecified; R79.89 Other specified abnormal findings of blood chemistry; E87.5 Hyperkalemia; D72.829 Elevated white blood cell count, unspecified; N39.0 Urinary tract infection, site not specified; E78.5 Hyperlipidemia, unspecified; I25.2 Old myocardial infarction; I25.10 Atherosclerotic heart disease of native coronary artery without angina pectoris; E78.00 Pure hypercholesterolemia, unspecified; Z95.5 Presence of coronary angioplasty implant and graft; Z95.810 Presence of automatic (implantable) cardiac defibrillator; Z85.828 Personal history of other malignant neoplasm of skin; Z87.891 Personal history of nicotine dependence; Z88.8 Allergy status to other drugs, medicaments and biological substances; Z85.46 Personal history of malignant neoplasm of prostate; Z87.19 Personal history of other diseases of the digestive system; Z87.442 Personal history of urinary calculi
CPT/HCPCS: 71010; 74177; 76937; 80048; 80053; 80162; 81001; 83690; 84132; 85025; 85027; 96365; 96375; 99291; G0378; J0696; J2270; J2405; J2543; J7030; Q9967

== ENCOUNTER 2016-05-14 20:41 | Emergency (ER) | payer MEDICARE, OTHER ==
[~2016-05-14] VITALS: Ht 170.2 cm; Wt 120.0 kg
[~2016-05-14 20:41] MED LIST changes: -AUGM875T PO; +CEFT500T3 PO; -DIGO.125 PO; -DIPH25 PO; +DIPH25CA PO; -DOCU1CAP39 PO; -FISH1000 PO; +FISH100020 PO; +FURO20TA PO; +HYDR-3516 PO; -HYDR-3533 PO; +MULT1TAB84 PO; +NITR0.4S SL; -PRAD150C PO; -PRED20 PO; -RANI150 PO; -SIMV20TA PO; +SIMV40TA PO; +SPIR25TA PO; -TAB-TAB PO; -TOPR50TA PO; -VITA100018 PO; +VITA100064 PO; -ZOFR4TAB3 SL
[2016-05-14 20:42] VITALS: BP 131/62; PULSE 114; RESP 18; TEMP 97.8; O2SAT 96
--- NOTE | 2016-05-14 22:09 | PD ---
Physical Exam Date Seen by Provider: May 14, 2016 Time Seen by Provider: 22:05 Narrative 80 YOWM HEMATURIA TODAY. HAD LLOYD TODAY. PASSING CLOTS. NO F/C. NO N/V. NO ABD PAIN. H/O URETER MASS. DR GUTIÉRREZ VS NOTED. WAITING FOR BED PLACEMENT Data Data Last Documented VS Vital Signs Date Time Temp Pulse Resp B/P Pulse Ox O2 Delivery O2 Flow Rate FiO2 05/14/16 20:42 97.8 114 18 131/62 96 Room Air [facility] Medical Record Reviewed: Yes Supervised Visit with ROBERT: Yes Osman Mireles May 14, 2016 22:09
[2016-05-14 23:07] VITALS: O2SAT 96
[2016-05-14 23:08] VITALS: BP 131/60; PULSE 59; RESP 20; O2SAT 96
[2016-05-14] MEDS ORDERED: PRAD150C PO (23:29)
[2016-05-14] MEDS ORDERED: COLA100C3 PO (23:29)
[2016-05-14] MEDS ORDERED: FURO40TA PO (23:29)
[2016-05-14] MEDS ORDERED: ASPI325T PO (23:29)
[2016-05-14] MEDS ORDERED: POTA1TAB4 PO (23:29)
--- NOTE | 2016-05-14 23:43 | PD ---
HPI Chief Complaint: Complaint Time Seen by Provider: 23:00 Travel History International Travel<30 days: No Contact w/Intl Traveler<30days: No Traveled to known affect area: No History of Present Illness HPI The patient is an 80 year old male who presents to the [facility] emergency department with a history of recently being diagnosed with a bladder mass after coming to the emergency department with hematuria. The patient was discharged from the hospital and followed up with , his urologist. This past , on May 10 he underwent cystoscopy with surgical resection of the mass. He reports that he resumed his Pradaxa on May 11 along with his Lasix. He reports that he had good urine output and had his Day catheter removed today. He took his last ciprofloxacin at 4 PM today. He reports that in the afternoon he began to have worsening hematuria with urinary urgency and incontinence. He reports having suprapubic abdominal discomfort. The patient reports having a decreased appetite. He reports that over the last 4 days he has had increased lower extremity edema. He denies having any calf pain or erythema. Otherwise on review of systems, the patient denies any history of fever, cough, congestion, neck pain, chest pain, shortness of breath, vomiting, diarrhea, or neurologic symptoms. [facility] Past Medical History Narrative Medical The patient's past medical history is significant for atrial fibrillation chronically anticoagulated on Pradaxa, history of cardiac catheterization with stent placement, history of HI, history of AICD and pacemaker placement, hyperlipidemia, congestive heart failure, hypertension, history of kidney stone , prostate cancer, diverticulitis, history of skin cancer. Hx Anticoagulant Therapy: Yes (PRADAXA) Atrial Fibrillation: Yes Heart Rhythm Problems: Yes (AFIB) Cancer: Yes (approximately) Cardiac Catheterization: Yes Cardiovascular Problems: Yes (AICD) High Cholesterol: Yes Chemotherapy: No Chest Pain: No Congestive Heart Failure: Yes Coronary Artery Disease: Yes Diminished Hearing: No Endocrine: No Gastrointestinal Disorders: Yes ( DIVERTICULITIS) Genitourinary: Yes Hypertension: Yes Immune Disorder: No Implanted Vascular Access Dvce: Yes Kidney Stones: Yes Musculoskeletal: No Neurologic: No Psychiatric: No Reproductive: No Respiratory: No Immunizations Current: Yes Myocardial Infarction: Yes (2003) Radiation Therapy: Yes (LEFT EAR) Renal Failure: No Past Surgical History Narrative Surgical The patient's past surgical history is significant for cardiac catheterization with stent placement times one, defibrillator pacemaker placement, left knee surgery, tonsillectomy, cystoscopy and bladder tumor removal. Abdominal Surgery: No AICD: Yes (SEP) Appendectomy: Yes Arteriovenous Shunt: No Cardiac Surgery: Yes (STENT, DEFIBRILATOR) Coronary Stent: Yes (X1) 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) Endocrine Surgery: No Eye Surgery: Yes Genitourinary Surgery: No Insulin Pump: No Joint Replacement: Yes (LEFT KNEE) Oral Surgery: No Pacemaker: Yes (PACER/DEFIB) Thoracic Surgery: No Tonsillectomy: Yes Other Surgery: Yes (bladder surgery 5 days ago ) Social History Alcohol Use: Yes (1-2 DRINKS A DAY) Tobacco Use: No (QUIT: AGE 48) Substance Use: No Allergies-Medications (Allergen,Severity, Reaction): Coded Allergies: Isosorbide (Verified Allergy, Severe, Itching, 05/14/16) AND SWELLING Lipitor (Verified Adverse Reaction, Severe, SORE JOINTS, 05/14/16) Reported Meds & Prescriptions Reported Meds & Active Scripts Active Hydrocodone-Acetaminophen 5-325 mg Tab 1 Tab PO Q4H PRN Reported Colace (Docusate Sodium) 100 Mg Cap 100 Mg PO BID K-Tab (Potassium Chloride) 20 Meq Tab 20 Meq PO BID Pradaxa (Dabigatran) 150 Mg Cap 150 Mg PO BID Aspirin 325 Mg Tab 325 Mg PO DAILY Furosemide 40 Mg Tab 100 Mg PO DAILY Multivitamin Adults (Multiple Vitamins W/ Minerals) 1 Tab 1 Tab PO DAILY Fish Oil 1000 mg ([place]-3 Fatty Acids) 1 Cap Cap 1,000 Mg PO DAILY Nitrostat SL (Nitroglycerin) 0.4 Mg Subl 0.4 Mg SL DIRECTED PRN 1 tablet under the tongue as needed for chest pain. Repeat every 5 minutes for a total of 3 DOSES or call 911 if NO relief. Vitamin D (Cholecalciferol) 1,000 Unit Tab 1,000 Units PO DAILY Ramipril 10 Mg Cap 10 Mg PO DAILY Simvastatin 40 Mg Tab 40 Mg PO HS Spironolactone 25 Mg Tab 25 Mg PO DAILY Review of Systems Except as stated in HPI: all other systems reviewed are Neg General / Constitutional: No: Fever Eyes: No: Visual changes HENT: No: Headaches Cardiovascular: No: Chest Pain or Discomfort Respiratory: No: Shortness of Breath Gastrointestinal: No: Abdominal Pain Genitourinary: Positive: Dysuria, Hematuria, Hesitancy, Dribbling, Pelvic Pain Musculoskeletal: No: Pain Skin: No Rash Neurologic: No: Weakness Psychiatric: No: Depression Endocrine: No: Polydipsia Hematologic/Lymphatic: No: Easy Bruising Physical Exam Narrative General: The patient is a well-developed well-nourished male in no acute distress. Head and Neck exam: Head is normocephalic atraumatic. Eyes: EOMI, pupils are equal round and reactive to light. Nose: Midline septum with pink mucous membranes Mouth: Dentition unremarkable. Moist mucus membranes. Posterior oropharynx is not erythematous. No tonsillar hypertrophy. Uvula midline. Airway patent. Neck: No palpable lymphadenopathy. No nuchal rigidity. No thyromegaly. Cardiovascular: Regular rate and rhythm without murmurs, gallops, or rubs. Lungs: Clear to auscultation bilaterally. No wheezes, rhonchi, or rales. Abdomen: Soft, without tenderness to palpation in all 4 quadrants of the abdomen. No guarding, rebound, or rigidity. No tenderness on palpation of McBurney's point. Negative Hobson's sign. Normal bowel sounds are audible. Extremities: No clubbing or cyanosis. The patient has 1+ pitting edema bilateral lower extremities. 2+ pulses in all 4 extremities. No calf tenderness on palpation. Back: No spinous process tenderness to palpation. Right-sided CVA tenderness on palpation. Neurologic Exam: Grossly nonfocal. Skin Exam: No rash noted. Intact skin that is warm and dry. Data Data Last Documented VS Vital Signs Date Time Temp Pulse Resp B/P Pulse Ox O2 Delivery O2 Flow Rate FiO2 05/14/16 23:08 59 20 131/60 96 Room Air 05/14/16 20:42 97.8 Orders Complete Blood Count With Diff (05/14/16 23:04) Prothrombin Time / Inr (Pt) (05/14/16 23:04) Act Partial Throm Time (Ptt) (05/14/16 23:04) Urinalysis - C+S If Indicated (05/14/16 23:04) Iv Access Insert/Monitor (05/14/16 23:04) Ecg Monitoring (05/14/16 23:04) Oximetry (05/14/16 23:04) Comprehensive Metabolic Panel (05/14/16 23:18) B-Type Natriuretic Peptide (05/14/16 23:18) Urinary Catheter Insert/Apply (05/14/16 23:18) Urine Culture (05/14/16 23:20) Sodium Chlorid 0.9% 500 Ml Inj (Ns 500 M (05/15/16 00:45) Potassium, Serum (K) (05/15/16 00:32) ^ Continuous Bladder Irrig - C (05/15/16 00:32) Sodium Polysty Sulfate Liq (Kayexalate L (05/15/16 01:30) Ceftriaxone Inj (Rocephin Inj) (05/15/16 01:30) Labs Laboratory Tests Test 05/14/16 05/15/16 23:20 00:40 Prothrombin Time 17.0 SEC Prothromb Time International 1.5 RATIO Ratio Activated Partial 59.2 SEC Thromboplast Time White Blood Count 17.5 TH/MM3 Red Blood Count 4.30 MIL/MM3 Hemoglobin 12.4 GM/DL Hematocrit 38.0 % Mean Corpuscular Volume 88.3 FL Mean Corpuscular Hemoglobin 28.8 PG Mean Corpuscular Hemoglobin 32.7 % Concent Red Cell Distribution Width 14.0 % Platelet Count 345 TH/MM3 Mean Platelet Volume 8.7 FL Neutrophils (%) (Auto) 78.5 % Lymphocytes (%) (Auto) 9.3 % Monocytes (%) (Auto) 9.3 % Eosinophils (%) (Auto) 1.9 % Basophils (%) (Auto) 1.0 % Neutrophils # (Auto) 13.8 TH/MM3 Lymphocytes # (Auto) 1.6 TH/MM3 Monocytes # (Auto) 1.6 TH/MM3 Eosinophils # (Auto) 0.3 TH/MM3 Basophils # (Auto) 0.2 TH/MM3 CBC Comment DIFF FINAL Differential Comment Urine Color RED Urine Turbidity TURBID Urine pH 7.0 Urine Specific [place] 1.011 Urine Protein 300 mg/dL Urine Glucose (UA) NEG mg/dL Urine Ketones NEG mg/dL Urine Occult Blood LARGE Urine Nitrite NEG Urine Bilirubin NEG Urine Urobilinogen LESS THAN 2.0 MG/DL Urine Leukocyte Esterase NEG Urine RBC /hpf Urine WBC /hpf Microscopic Urinalysis Comment CULTURE INDICATED Sodium Level 138 MEQ/L Potassium Level 5.7 MEQ/L 5.4 MEQ/L Chloride Level 101 MEQ/L Carbon Dioxide Level 26.0 MEQ/L Anion Gap 11 MEQ/L Blood Urea Nitrogen 57 MG/DL Creatinine 2.87 MG/DL Estimat Glomerular Filtration 21 ML/MIN Rate Random Glucose 97 MG/DL Calcium Level 8.8 MG/DL Total Bilirubin 0.6 MG/DL Aspartate Amino Transf 70 U/L (AST/SGOT) Alanine Aminotransferase 55 U/L (ALT/SGPT) Alkaline Phosphatase 160 U/L B-Type Natriuretic Peptide 304 PG/ML Total Protein 7.0 GM/DL Albumin 2.6 GM/DL [facility] Medical Decision Making Medical Screen Exam Complete: Yes Emergency Medical Condition: Yes Medical Record Reviewed: Yes Differential Diagnosis Urinary retention related to hematuria, versus urinary tract infection, versus acute on chronic renal failure, versus pyelonephritis Narrative Course During the course of the patients emergency department visit, the patients history, examination, and differential diagnosis were reviewed with the patient. The patient had IV access obtained and blood work sent for analysis. The patient was placed on a awake overnight monitor with oximetry and blood pressure monitoring. A Day catheter will be placed to gravity. The patient was provided normal saline a 500 mL bolus 1, Kayexalate 15 g by mouth 1, Rocephin 1 g IV The patients laboratory studies were reviewed and remarkable for a white count of 17.5, hemoglobin 12.4, platelets 345 with 78.5 neutrophils, monocytes 9.3. CMP was remarkable for a potassium of 5.7, BUN 57, creatinine 2.87 which was increased compared to previously at 42 and 1.72 respectively. AST is 70, alkaline phosphatase 160, BNP 304, slight hemolysis was noted on potassium this was rechecked and slight hemolysis was noted again, however the patient's potassium is 5.4. INR is 1.5, urinalysis shows large occult blood innumerable rbc's and wbc's. The patient's results were discussed with him. The patient was offered admission for continued evaluation and treatment. He reports that he has an appointment with his urologist, Dr. means for later today. He reports feeling improved after the catheter was placed. The patient will be discharged home with a prescription for continuation of antibiotic. The patient is resting comfortably and feels better, is alert and in no distress. The patients results and examination findings were discussed with the patient. The repeat examination is unremarkable and benign. The history, exam, diagnostic testing, and current condition do not suggest any significant pathology to warrant further testing, continued ED treatment, admission, or surgical evaluation at this point. The vital signs have been stable. The patient does not have uncontrollable pain, intractable vomiting, or other significant symptoms. The patient's condition is stable and appropriate for discharge. The patient will pursue further outpatient evaluation with a primary care physician or other designated or consulting physician as indicated in the discharge instructions. The patient expressed understanding and was agreeable with this plan. Diagnosis Primary Impression: Obstructive uropathy Additional Impression: Hematuria Referrals: Porfirio Grubbs MD 1 day Patient Instructions: General Instructions, Hematuria (ED) Additional Instructions: The patient was given a lab slip to repeat his renal function and potassium in 24 hours. Med/Other Pt SpecificInfo: Prescription(s) given Scripts Sulfamethoxazole-Trimethoprim (Bactrim DS)800-160 Mg Tab1 Tab PO BID #20 TAB Ref 0 Prov:Faina Al MD 05/15/16 Disposition: 01 DISCHARGE HOME Condition: Stable Faina Al MD May 14, 2016 23:43
[2016-05-14 23:45] LABS: AUTOMATED NEUTROPHIL # 13.8 TH/MM3 (1.8-7.7); BASOPHIL # 0.2 TH/MM3 (0-0.2); EOSINOPHIL # 0.3 TH/MM3 (0-0.4); EOSINOPHIL % 1.9 % (0.0-4.0); HEMO FLAGS DIFF FINAL; LYMPH % 9.3 % (9.0-44.0); LYMPHOCYTE # 1.6 TH/MM3 (1.0-4.8); MEAN CELL VOLUME 88.3 FL (80.0-100.0); MEAN CORPUSCULAR HEMOGLOBIN 28.8 PG (27.0-34.0); MEAN CORPUSCULAR HGB CONC 32.7 % (32.0-36.0); MONO % 9.3 % (0.0-8.0); NEUT % 78.5 % (16.0-70.0); PLATELET COUNT 345 TH/MM3 (150-450); WHITE BLOOD COUNT 17.5 TH/MM3 (4.0-11.0)
[2016-05-14 23:58] LABS: APTT (PATIENT) 59.2 SEC (24.3-30.1); INTERNATIONAL NORMALIZED RATIO 1.5 RATIO
[2016-05-15] LABS: ALKALINE PHOSPHATASE 160 U/L (45-117); TOTAL BILIRUBIN ADULT 0.6 MG/DL (0.2-1.0)
[2016-05-15 00:04] LABS: COMMENT (UR) CULTURE INDICATED; CULTURE IF INDICATED CULTURE INDICATED; GLUCOSE,URINE NEG (NEG); KETONE, URINE NEG (NEG); NITRITE,URINE NEG (NEG); URINE COLOR RED (YELLW/STRAW)
[2016-05-15 00:08] LABS: ALT (GPT) 55 U/L (12-78); ANION GAP 11 MEQ/L (5-15); AST (GOT) 70 U/L (15-37); BLOOD UREA NITROGEN 57 MG/DL (7-18); CHLORIDE 101 MEQ/L (98-107); GLOMERULAR FILTRATION RATE 21 ML/MIN (>89); SODIUM (NA) 138 MEQ/L (136-145)
[2016-05-15 00:09] LABS: POTASSIUM 5.7 MEQ/L (3.5-5.1)
[2016-05-15 00:17] LABS: BLOOD, URINE LARGE (NEG)
[2016-05-15] MEDS ORDERED: SODIUM CHLORID 0.9% 500 ML INJ 500 ML IV ONE (00:45)
[2016-05-15] MEDS ORDERED: cefTRIAXone INJ 1,000 MG in SODIUM CHLORIDE 0.9% INJ 100 ML IV ONE (01:30)
[2016-05-15] MEDS ORDERED: SODIUM POLYSTYRENE SULFONATE SUSP 15 GM/60 ML CUP PO ONE (01:30)
[2016-05-15] MEDS ORDERED: BACT800T5 PO (02:03)
== END 2016-05-15 02:40 | disposition home or self-care (01) ==
LOC: NEPC 20:41
DX: N13.9 Obstructive and reflux uropathy, unspecified (principal); R31.9 Hematuria, unspecified; I25.2 Old myocardial infarction; I10 Essential (primary) hypertension; I25.10 Atherosclerotic heart disease of native coronary artery without angina pectoris; I50.9 Heart failure, unspecified; I48.91 Unspecified atrial fibrillation; Z87.891 Personal history of nicotine dependence
CPT/HCPCS: 51700; 80053; 81001; 83880; 84132; 85025; 85610; 85730; 87086; 96361; 96365; 99284; J0696; J7040

== ENCOUNTER 2016-05-17 00:45 | Inpatient (IN) | payer MEDICARE, OTHER ==
[~2016-05-17] VITALS: Ht 172.7 cm; Wt 115.0 kg
[2016-05-17] VITALS (14 sets, daily range): BP systolic 111–146; BP diastolic 58–85; PULSE 53–92; RESP 13–20; TEMP 97.6–98.6; O2SAT 95–98
[~2016-05-17 00:45] MED LIST changes: +ASPI325T PO; +BACT800T5 PO; -CEFT500T3 PO; +COLA100C3 PO; -DIPH25CA PO; -FURO20TA PO; +FURO40TA PO; +POTA1TAB4 PO; +PRAD150C PO
[2016-05-17] MEDS ORDERED: SODIUM CHLOR 0.9% 1000 ML INJ 1,000 ML IV SCH (01:19)
[2016-05-17] MEDS ORDERED: DIAZEPAM 5 MG TAB PO ONE (01:30)
[2016-05-17] MEDS ORDERED: SODIUM CHLORIDE 0.9% FLUSH 10 ML FLUSH IVF PRN (01:30)
[2016-05-17] MEDS ORDERED: MECLIZINE HCL 25 MG TAB PO ONE (01:30)
[2016-05-17 02:01] LABS: AUTOMATED NEUTROPHIL # 12.8 TH/MM3 (1.8-7.7); BASOPHIL # 0.2 TH/MM3 (0-0.2); BASOPHIL % 1.2 % (0.0-2.0); EOSINOPHIL # 0.2 TH/MM3 (0-0.4); EOSINOPHIL % 1.4 % (0.0-4.0); HEMATOCRIT 35.6 % (39.0-51.0); HEMO FLAGS DIFF FINAL; LYMPH % 7.6 % (9.0-44.0); LYMPHOCYTE # 1.2 TH/MM3 (1.0-4.8); MEAN CELL VOLUME 88.3 FL (80.0-100.0); MEAN CORPUSCULAR HEMOGLOBIN 28.7 PG (27.0-34.0); MEAN CORPUSCULAR HGB CONC 32.5 % (32.0-36.0); MONO % 8.1 % (0.0-8.0); NEUT % 81.7 % (16.0-70.0); PLATELET COUNT 395 TH/MM3 (150-450); RED BLOOD COUNT 4.04 MIL/MM3 (4.50-5.90); RED CELL DISTRIBUTION WIDTH 14.1 % (11.6-17.2); WHITE BLOOD COUNT 15.6 TH/MM3 (4.0-11.0)
[2016-05-17 02:19] LABS: APTT (PATIENT) 56.7 SEC (24.3-30.1); INTERNATIONAL NORMALIZED RATIO 1.5 RATIO; PROTHROMBIN TIME - PATIENT 16.7 SEC (9.8-11.6)
[2016-05-17 02:21] LABS: ALKALINE PHOSPHATASE 183 U/L (45-117); ALT (GPT) 67 U/L (12-78); ANION GAP 8 MEQ/L (5-15); AST (GOT) 85 U/L (15-37); BICARBONATE 29.4 MEQ/L (21.0-32.0); BLOOD UREA NITROGEN 45 MG/DL (7-18); CHLORIDE 98 MEQ/L (98-107); GLOMERULAR FILTRATION RATE 21 ML/MIN (>89); POTASSIUM 4.6 MEQ/L (3.5-5.1); SODIUM (NA) 135 MEQ/L (136-145); TOTAL BILIRUBIN ADULT 0.4 MG/DL (0.2-1.0)
--- NOTE | 2016-05-17 02:43 | RADRPT ---
EXAM DATE/TIME: 05/17/2016 02:24 [facility] COMPARISON: No previous studies available for comparison. INDICATIONS : Dizziness along with near-syncope. RADIATION DOSE: 45.55 CTDIvol (mGy) MEDICAL HISTORY : Cardiovascular disease. Carcinoma, prostate. SURGICAL HISTORY : Coronary artery stent. ENCOUNTER: Initial ACUITY: 1 day PAIN SCALE: 3/10 LOCATION: cranial TECHNIQUE: Multiple contiguous axial images were obtained of the head. Using automated exposure control and adj ustment of the mA and/or kV according to patient size, radiation dose was kept as low as reasonably a chievable to obtain optimal diagnostic quality images. FINDINGS: CEREBRUM: The ventricles are normal for age. No evidence of midline shift, mass lesion, hemorrhage or acute in farction. No extra-axial fluid collections are seen. POSTERIOR FOSSA: The cerebellum and brainstem are intact. The 4th ventricle is midline. The cerebellopontine angle i s unremarkable. EXTRACRANIAL: The visualized portion of the orbits is intact. SKULL: The calvaria is intact. No evidence of skull fracture. CONCLUSION: No acute disease. Jayson Lopez Jr., MD on May 17, 2016 at 2:41 Board Certified Radiologist. This report was verified electronically.
[2016-05-17] MEDS ORDERED: ASPIRIN 81 MG CHEW TAB CHEW ONE (03:00)
--- NOTE | 2016-05-17 04:05 | RADRPT ---
EXAM DATE/TIME: 05/17/2016 03:17 [facility] COMPARISON: CHEST SINGLE AP, May 03, 2016, 22:55. INDICATIONS : Chest pain. MEDICAL HISTORY : Cardiovascular disease. Carcinoma, prostatic. Congestive heart failure. CA A-Fib SURGICAL HISTORY : Coronary artery stent. Pacemaker. Defibrillator ENCOUNTER: Initial ACUITY: 1 day PAIN SCORE: 6/10 LOCATION: Bilateral chest FINDINGS: A single view of the chest demonstrates the lungs to be symmetrically aerated without evidence of mas s, infiltrate or effusion. The cardiomediastinal contours are unremarkable. Osseous structures are intact. A dual-lead pacemaker lies on the left. CONCLUSION: No acute disease. Jayson Lopez Jr., MD on May 17, 2016 at 4:03 Board Certified Radiologist. This report was verified electronically.
[2016-05-17] MEDS ORDERED: ONDANSETRON HCL 4 MG/2 ML VIAL IV PUSH PRN (04:30)
[2016-05-17] MEDS: SODIUM CHLOR 0.9% 1000 ML INJ 1,000 ML IV SCH ×2 (05:25→17:41)
--- NOTE | 2016-05-17 05:52 | PD ---
HPI Chief Complaint: Syncope/Near-Syncope Time Seen by Provider: 01:10 Travel History International Travel<30 days: No Contact w/Intl Traveler<30days: No Traveled to known affect area: No History of Present Illness HPI A 80-year-old male with a history of hematuria and an unknown heart condition presents emergency Department with dizziness fairly abrupt in onset. Patient states he was lying down on a couch and when he turned over to change channel on the television he had sudden onset of vertiginous symptoms as well as some nausea. Patient states when he sat up he got even worse. Patient states she's never had these type symptoms before. Denies any focalized weakness denies any visual difficulties chest pain shortness of breath abdominal pain. Symptoms onset approximate hour and a half ago and unchanged. Patient also relays a history of recent diagnosis of bladder cancer "stage IV" the patient states he is supposed to having a PET scan later this month. Patient is not currently on chemotherapy. PFSH Past Medical History Hx Anticoagulant Therapy: Yes (paradoxa) Atrial Fibrillation: Yes Heart Rhythm Problems: Yes (AFIB) Cancer: Yes (approximately) Cardiac Catheterization: Yes Cardiovascular Problems: Yes High Cholesterol: Yes Chemotherapy: No Chest Pain: No Congestive Heart Failure: Yes Coronary Artery Disease: Yes Diminished Hearing: No Endocrine: No Gastrointestinal Disorders: Yes ( DIVERTICULITIS) Genitourinary: Yes Hypertension: Yes Immune Disorder: No Implanted Vascular Access Dvce: Yes Kidney Stones: Yes Musculoskeletal: No Neurologic: No Psychiatric: No Reproductive: No Respiratory: No Immunizations Current: Yes Myocardial Infarction: Yes (2004) Radiation Therapy: Yes (LEFT EAR) Renal Failure: No Past Surgical History Abdominal Surgery: No AICD: Yes (SEP) Appendectomy: Yes Arteriovenous Shunt: No Cardiac Surgery: Yes (STENT, DEFIBRILATOR) Coronary Stent: Yes (X1) 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) Endocrine Surgery: No Eye Surgery: Yes Genitourinary Surgery: No Insulin Pump: No Joint Replacement: Yes (LEFT KNEE) Oral Surgery: No Pacemaker: Yes (PACER/DEFIB) Thoracic Surgery: No Tonsillectomy: Yes Other Surgery: Yes (bladder surgery 5 days ago ) Social History Alcohol Use: Yes (1-2 DRINKS A DAY) Tobacco Use: No (QUIT: AGE 48) Substance Use: No Allergies-Medications (Allergen,Severity, Reaction): Coded Allergies: Isosorbide (Verified Allergy, Severe, Itching, 05/14/16) AND SWELLING Lipitor (Verified Adverse Reaction, Severe, SORE JOINTS, 05/14/16) Reported Meds & Prescriptions Reported Meds & Active Scripts Active Bactrim DS (Sulfamethoxazole-Trimethoprim) 800-160 Mg Tab 1 Tab PO BID Hydrocodone-Acetaminophen 5-325 mg Tab 1 Tab PO Q4H PRN Reported Colace (Docusate Sodium) 100 Mg Cap 100 Mg PO BID Pradaxa (Dabigatran) 150 Mg Cap 150 Mg PO BID Aspirin 325 Mg Tab 325 Mg PO DAILY Multivitamin Adults (Multiple Vitamins W/ Minerals) 1 Tab 1 Tab PO DAILY Fish Oil 1000 mg ([place]-3 Fatty Acids) 1 Cap Cap 1,000 Mg PO DAILY Nitrostat SL (Nitroglycerin) 0.4 Mg Subl 0.4 Mg SL DIRECTED PRN 1 tablet under the tongue as needed for chest pain. Repeat every 5 minutes for a total of 3 DOSES or call 911 if NO relief. Vitamin D (Cholecalciferol) 1,000 Unit Tab 1,000 Units PO DAILY Ramipril 10 Mg Cap 10 Mg PO DAILY Simvastatin 40 Mg Tab 40 Mg PO HS Review of Systems Except as stated in HPI: all other systems reviewed are Neg Physical Exam Narrative GENERAL: Well-developed well-nourished no apparent distress. SKIN: Focused skin assessment warm/dry. HEAD: Atraumatic. Normocephalic. EYES: Pupils equal and round. No scleral icterus. No injection or drainage. ENT: No nasal bleeding or discharge. Mucous membranes pink and moist. NECK: Trachea midline. No JVD. CARDIOVASCULAR: Regular rate and rhythm. No murmur appreciated. 2+ bilaterally pulses in all 4 extremity's. RESPIRATORY: No accessory muscle use. Clear to auscultation. Breath sounds equal bilaterally. GASTROINTESTINAL: Abdomen soft, non-tender, nondistended. Hepatic and splenic margins not palpable. MUSCULOSKELETAL: No obvious deformities. No clubbing. No cyanosis. No edema. NEUROLOGICAL: Awake and alert. Cranial nerves II-12 grossly intact and nonfocal , 5 out of 5 strength in all 4 tremors, cerebellar testing negative. PSYCHIATRIC: Appropriate mood and affect; insight and judgment normal. Data Data Last Documented VS Vital Signs Date Time Temp Pulse Resp B/P Pulse Ox O2 Delivery O2 Flow Rate FiO2 05/17/16 03:08 69 16 118/58 97 Room Air 05/17/16 00:58 97.6 Orders Electrocardiogram (05/17/16 01:19) Complete Blood Count With Diff (05/17/16 01:19) Comprehensive Metabolic Panel (05/17/16 01:19) Prothrombin Time / Inr (Pt) (05/17/16 01:19) Act Partial Throm Time (Ptt) (05/17/16 01:19) Troponin I (05/17/16 01:19) Ct Brain W/O Iv Contrast(Rout) (05/17/16 01:19) Blood Glucose (05/17/16 01:19) Ecg Monitoring (05/17/16 01:19) Iv Access Insert/Monitor (05/17/16 01:19) Oximetry (05/17/16 01:19) Sodium Chloride 0.9% Flush (Ns Flush) (05/17/16 01:30) Sodium Chlor 0.9% 1000 Ml Inj (Ns 1000 M (05/17/16 01:19) Diazepam (Valium) (05/17/16 01:30) Meclizine (Antivert) (05/17/16 01:30) Aspirin Chew (Aspirin Chew) (05/17/16 03:00) Chest, Single Ap (05/17/16 ) Admit Order (Ed Use Only) (05/17/16 ) Labs Laboratory Tests Test 05/17/16 01:45 White Blood Count 15.6 TH/MM3 Red Blood Count 4.04 MIL/MM3 Hemoglobin 11.6 GM/DL Hematocrit 35.6 % Mean Corpuscular Volume 88.3 FL Mean Corpuscular Hemoglobin 28.7 PG Mean Corpuscular Hemoglobin 32.5 % Concent Red Cell Distribution Width 14.1 % Platelet Count 395 TH/MM3 Mean Platelet Volume 8.4 FL Neutrophils (%) (Auto) 81.7 % Lymphocytes (%) (Auto) 7.6 % Monocytes (%) (Auto) 8.1 % Eosinophils (%) (Auto) 1.4 % Basophils (%) (Auto) 1.2 % Neutrophils # (Auto) 12.8 TH/MM3 Lymphocytes # (Auto) 1.2 TH/MM3 Monocytes # (Auto) 1.3 TH/MM3 Eosinophils # (Auto) 0.2 TH/MM3 Basophils # (Auto) 0.2 TH/MM3 CBC Comment DIFF FINAL Differential Comment Prothrombin Time 16.7 SEC Prothromb Time International 1.5 RATIO Ratio Activated Partial 56.7 SEC Thromboplast Time Sodium Level 135 MEQ/L Potassium Level 4.6 MEQ/L Chloride Level 98 MEQ/L Carbon Dioxide Level 29.4 MEQ/L Anion Gap 8 MEQ/L Blood Urea Nitrogen 45 MG/DL Creatinine 2.86 MG/DL Estimat Glomerular Filtration 21 ML/MIN Rate Random Glucose 114 MG/DL Calcium Level 8.8 MG/DL Total Bilirubin 0.4 MG/DL Aspartate Amino Transf 85 U/L (AST/SGOT) Alanine Aminotransferase 67 U/L (ALT/SGPT) Alkaline Phosphatase 183 U/L Troponin I 1.58 NG/ML Total Protein 6.9 GM/DL Albumin 2.6 GM/DL [facility] Medical Decision Making Medical Screen Exam Complete: Yes Emergency Medical Condition: Yes Interpretation(s) EKG shows atrial paced rhythm without evidence for ischemia. Differential Diagnosis Dehydration, electrolyte abnormality, vertigo, ACS, AMI, cerebral stroke unlikely. Narrative Course Patient was roomed emergency department, he has fairly classic presentation for vertigo. I doubt a central vertigo or acute basilar stroke. However given his age and his first onset a CT and basic labs are warranted. Patient initially is reluctant to having labs drawn but was ultimately convinced by me. Labs are significant for a troponin of 1.58 a creatinine at 2.86. Patient's creatinine on 326 and 1.72. This representing acute kidney injury. AST is elevated 85 ALT is normal. Chest x-ray negative CT head negative. Discussed the patient his findings after he was given Valium his symptoms are completely resolved. Discussed with him need for admission to the hospital and he is agreeable. Discussed with Dr. edwards who will admit. Patient is on pradaxa for "heart problem" he cannot clarify further. Heparinization will be held. Diagnosis Primary Impression: Non-STEMI (non-ST elevated myocardial infarction) Additional Impressions: Acute kidney injury Vertigo Admitting Information Admitting Physician Requests: Admit Condition: Stable Umang Dorsey MD May 17, 2016 05:52
--- NOTE | 2016-05-17 08:44 | MB ---
cc: MARILU WAGNER MD DATE OF CONSULTATION 05/17/2016 REASON FOR CONSULTATION Elevated troponin HISTORY OF PRESENT ILLNESS Mr. Saxena is an 80-year-old man who does have a history of cardiomyopathy with an EF of about 30%. He has a history of atrial fibrillation with ablation and is also status post ICD implantation. He has had some recent difficulties with heart failure, renal insufficiency and apparently was diagnosed with bladder cancer and hematuria. The patient was seen in the office a couple days ago and we left him off of several of medications that were discontinued in the hospital. He subsequently presented for dizziness with turning over. This was apparently severe as it precipitated his visit to the emergency room. The patient denies any cardiac complaints and specifically denies any chest pain, short shortness of breath or palpitations. PAST MEDICAL HISTORY Includes: 1. Atrial fibrillation 2. Cardiomyopathy- s/p ICD 3. CHF 4. CAD with previous stenting of the LAD. SOCIAL HISTORY The patient does have one or two drinks a day. He is a former smoker. ALLERGIES ISOSORBIDE AND LIPITOR OUTPATIENT MEDICATIONS Include: 1. Bactrim 2. Hydrocodone 3. Colace 4. Pradaxa 5. Aspirin 6. Multivitamin 7. Nitro-stat 8. Ramipril 9. Simvastatin PHYSICAL EXAM VITAL SIGNS: Heart rate 69, respiratory rate 16, blood pressure 118/58. GENERAL: He is a well-appearing man who is in no apparent distress. NECK: His neck is free from JVD. LUNGS: The lungs are bilaterally clear to auscultation. CARDIOVASCULAR: normal S1 and S2, systolic murmur. ABDOMEN: Soft. EXTREMITIES: Have 2+ edema. EKG shows a paced rhythm. LABORATORY VALUES White count is 15.6, hemoglobin is 11.6, creatinine is 2.8, troponin is 1.58. IMPRESSIONS Elevated troponin - This appears to be most consistent with a cardiorenal syndrome given his acute on chronic renal insufficiency and history of ischemic cardiomyopathy with recent CHF exacerbation. Acute on chronic systolic heart failure - The patient has had symptoms with edema more recently and now has had progressive renal insufficiency with troponin elevation. I would like to get renal involved to assist with his fluid management, as well, I think it would be reasonable to get an echocardiogram. Ischemic cardiomyopathy - The patient's creatinine is to high for an elena inhibitor and will add low-dose Coreg. I would consider further ischemia work up with a nuclear stress test. Renal Insufficiency- renal consult placed Atrial fibrillation- s/p ablation, stop pradaxa Fernanda Ambrosio/DJL /8:04 AM /8:33 AM ALESSANDRA
[2016-05-17] MEDS: CARVEDILOL 3.125 MG TAB PO SCH ×2 (08:53→21:59)
[2016-05-17] MEDS: ACETAMINOPHEN 325 MG TAB PO PRN (08:54)
--- NOTE | 2016-05-17 10:54 | EKG ---
Date Performed: 05/17/2016 Time Performed: 03:05:21 PTAGE: 80 years EKG: ELECTRONIC VENTRICULAR PACEMAKER ABNORMAL RHYTHM ECG NO PREVIOUS TRACING DOCTOR: Chuck Pina Interpretating Date/Time 05/17/2016 10:53:03
--- NOTE | 2016-05-17 11:48 | EC ---
Study Study Date:05/17/2016 STUDY CONCLUSIONS SUMMARY - Left ventricle: The cavity size was normal. Wall thickness was normal. Systolic function was severely reduced by visual assessment. The estimated ejection fraction was in the range of 20% to 25%. Severe hypokinesis of the entire anteroseptal, anterior, anterolateral, lateral, and apical myocardium. - Aortic valve: Transvalvular velocity was increased less than expected, due to low cardiac output. There was mild stenosis. Valve area: 1.56cm^2(VTI). Valve area: 1.55cm^2 (Vmax). - Mitral valve: Mild regurgitation. - Left atrium: The atrium was moderately dilated. - Tricuspid valve: Mild regurgitation. - Pulmonary arteries: PA peak pressure: 33mm Hg (S). If LV function is below 40, please consider prescribing an ACEI or ARB or document rationale for non-use. PROCEDURE DATA STUDY STATUS: Elective. Procedure: Transthoracic echocardiography. Image quality was good. Scanning was performed from the parasternal, apical, and subcostal acoustic windows. Study completion: The patient tolerated the procedure well. Transthoracic echocardiography. M-mode, complete 2D, complete spectral Doppler, and color Doppler. Patient status: Inpatient. CARDIAC ANATOMY LEFT VENTRICLE: Not well visualized. The cavity size was normal. Wall thickness was normal. Systolic function was severely reduced by visual assessment. The estimated ejection fraction was in the range of 20% to 25%. Diffuse hypokinesis with regional variations. Regional wall motion abnormalities: Severe hypokinesis of the entire anteroseptal, anterior, anterolateral, lateral, and apical myocardium. AORTIC VALVE: Probably trileaflet; mildly thickened, moderately calcified leaflets. Doppler: Transvalvular velocity was increased less than expected, due to low cardiac output. There was mild stenosis. No regurgitation. Valve area: 1.56cm^2(VTI). Valve area: 1.55cm^2 (Vmax). Mean gradient: 9mm Hg (S). Peak gradient: 16mm Hg (S). AORTA: Aortic root: The aortic root was normal in size. MITRAL VALVE: Structurally normal valve. Doppler: Transvalvular velocity was within the normal range. There was no evidence for stenosis. Mild regurgitation. LEFT ATRIUM: The atrium was moderately dilated. RIGHT VENTRICLE: Not well visualized. The cavity size was normal. Wall thickness was normal. PULMONIC VALVE: Doppler: Transvalvular velocity was within the normal range. There was no evidence for stenosis. No regurgitation. TRICUSPID VALVE: Structurally normal valve. Doppler: Transvalvular velocity was within the normal range. Mild regurgitation. PULMONARY ARTERY: The main pulmonary artery was normal-sized. Systolic pressure was within the normal range. RIGHT ATRIUM: Not well visualized. The atrium was at the upper limits of normal in size. PERICARDIUM: There was no pericardial effusion. SYSTEMIC VEINS: Inferior vena cava: The vessel was normal in size. BASIC MEASUREMENTS ADULT Normal Left ventricle LV internal dimension, ED, chordal level, *59.4 mm 43-52 PLAX LV internal dimension, ES, chordal level, *52 mm 23-38 PLAX Fractional shortening, chordal level, PLAX *12 % >29 LV posterior wall thickness, ED 11.5 mm IVS/LVPW ratio, ED 0.9 <1.3 Ventricular septum Septal thickness, ED 10.4 mm Aortic valve Leaflet separation *13 mm 15-26 Right ventricle RV internal dimension, ED, PLAX 29 mm 19-38 BASIC MEASUREMENTS ADULT Normal Aortic valve Leaflet separation *13 mm 15-26 Aorta Root diameter, ED 30 mm 20-37 Left atrium Anterior-posterior dimension, ES *54 mm 19-40 LA/aortic root ratio 1.8 DOPPLER MEASUREMENTS ADULT Normal Main pulmonary artery Pressure, S *33 mm Hg =30 Aortic valve Peak velocity, S 197 cm/s Mean velocity, S 137 cm/s VTI, S 38.5 cm Mean gradient, S 9 mm Hg Peak gradient, S 16 mm Hg Valve area, VTI 1.56 cm^2 Valve area, Vmax 1.55 cm^2 Tricuspid valve Regurgitant peak velocity 239 cm/s Peak RV-RA gradient, S 23 mm Hg Systemic veins Estimated CVP 10 mm Hg Right ventricle RV pressure, S *33 mm Hg <30 LEGEND: Mean values are shown as u=mean value. Asterisk (*) morrison values outside specified normal range. Prepared and signed by Easton Retana [id number]
[2016-05-17] MEDS ORDERED: cefTRIAXone INJ 1,000 MG in SODIUM CHLORIDE 0.9% INJ 100 ML IV SCH (12:00)
[2016-05-17] MEDS ORDERED: SODIUM CHLORIDE 0.9% FLUSH 10 ML FLUSH IV FLUSH PRN (12:30)
[2016-05-17] MEDS ORDERED: GLUCAGON 1 MG/ML VIAL OTHER PRN (12:30)
[2016-05-17] MEDS ORDERED: DEXTROSE 50% IN WATER 50 ML VIAL(D50) IV PUSH PRN (12:30)
--- NOTE | 2016-05-17 13:16 | MB ---
cc: BRUNILDA ALICIA MD DATE OF CONSULTATION: 05/17/2016 REASON FOR CONSULTATION: Elevated BUN and creatinine for evaluation. HISTORY OF PRESENT ILLNESS This is a 80-year-old male with past medical history of Ischemic heart disease, atrial fibrillation, hyperlipidemia, congestive heart failure, history of renal stone prostate cancer and chronic kidney disease, came to the hospital with complaint of dizziness and near syncope. I was called to see the patient because of elevated BUN and creatinine patient has history of chronic kidney disease and seems like the baseline creatinine has been around 1.5-1.9 this was then he was admitted about 10 days ago and now he came with a creatinine of 2.8, it was 2.83 days ago when he came to the ER because he was not able to pass the urine. The patient has been recently diagnosed with bladder morrison and has been following with urology Dr. Bruno and he was supposed to get the better scan to see the to see if he has any metastasis. The patient came to the emergency department 3 days ago and he has a Day catheter reinserted because he was not able to pass the urine since then off and on he has been having bloody urine is been going on about a month and he was given Bactrim when he was discharged from the hospital the patient denies any nausea, vomiting. There is no history of diarrhea. He was found to have normal blood pressure was no hypotension and potassium was a little bit high when he was here the last time but the potassium has been normal now. He has been getting IV fluid now and cardiology has been consulted because of elevated troponin the troponin is gone up to 1.5 PAST MEDICAL HISTORY: 1. Ischemic heart disease 2. Hypertension 3. Congestive heart failure 4. Atrial fibrillation 5. Chronic kidney disease 6. Bladder mass. PAST SURGICAL HISTORY 1. Cardiac catheterization and stenting 2. Defibrillator AICD placement 3. Left knee surgery 4. Tonsillectomy 5. History of cystoscopy. REVIEW OF SYSTEMS The patient has a episode of syncope lives alone at home by himself. There is no history of nausea or vomiting. There is no history of diarrhea. He has normal appetite. Denies any shortness of breath. No chest pain. He has swelling in the legs which has being chronic according to the patient and activity and has been there for at least two to three months. He was taking diuretics but it was stopped because of worsening creatinine. He denies any history of diarrhea. He has difficulty passing urine and currently has a Day catheter. The urine is still slightly bloody. SOCIAL HISTORY The patient is single and lives alone by himself. He stopped smoking 50 years ago. Drinks one to two beers every day. ALLERGIES ISOSORBIDE LIPITOR MEDICATIONS Currently he is just on Normal saline at 75 Coreg 3.125 mg q. 12-hour. Zofran p.r.n. PHYSICAL EXAMINATION: IN GENERAL: The patient is awake, alert. He is not in acute distress. VITAL SIGNS: Blood pressure 111/65 temperature is 98.1, oxygen saturation 95-96% on room air. HEAD, EYES, EARS, NOSE, AND THROAT: Pupils equal, round, reactive to light and accommodation Nonicteric. conjunctivae normal. NECK: Supple. JVD is not elevated. LUNGS: The patient has bilateral decreased air entry with occasional wheezing. HEART: S1, S2, regular rhythm. ABDOMEN: Abdomen is distended, soft lax. There is no tenderness. Bowel sounds positive. EXTREMITIES: He has bilateral 1+ edema. LABORATORY FINDINGS: Investigation WBC count is 15.6, hemoglobin 11.6, platelet count of 395, neutrophils 81.7, sodium 135. Potassium 4.6, chloride 98, bicarb 29.4, BUN 45, creatinine 2.86, AST is 85, ALT is 67, alkaline phosphatase 180. Troponin I 1.5. The repeat was 1.17, total protein 6.9. Albumin of 2.6, INR is 1.5. Urinalysis showing turbid urine with large occult blood. WBC and RBC innumerable, CHRISTY was negative in 2015, rheumatoid factor was also negative. IMAGING STUDIES The patient has had CT scan of the brain done which showed that he has no acute disease. Chest x-ray Was done which shows lung bonds clear. ASSESSMENT/PLAN 1. Chronic kidney disease acute kidney injury 2. Hematuria and history of bladder cancer. 3. Possible urinary tract infection. 4. Ischemic heart disease and elevated troponin. 5. Atrial fibrillation. 6. Anemia. 7. 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 His urine previously did not show significant proteinuria now he has more protein, possibly because of the urine infection and hematuria. Acute kidney injury is either because of the UTI with ATN or possibility of cardiorenal syndrome. His liver enzymes are also slightly elevated which could be also related to the heart. At present I agree with holding the diuretics but giving IV fluid. He will need to be watched closely for fluid overload status and I will start him on ceftriaxone awaiting urine culture. The last culture did not grow anything. Also get ultrasound of the kidneys, and consider Urology follow-ups for bladder mass. Thank you for the consultation and I will follow the patient while he is in the hospital. MD DENNIS Rodriguez/treva /11:46 AM /12:52 PM
--- NOTE | 2016-05-17 13:17 | HHI.HP ---
[facility] Service [facility] Primary Care Physician Thomas Montano M.D. Admission Diagnosis NSTEMI, Presyncope Diagnoses: Chief Complaint: Dizziness. Travel History International Travel<30 Days: No Contact w/Intl Traveler <30 Da: No Traveled to Known Affected Are: No History of Present Illness 80-year-old white male with a history of chronic atrial fibrillation with history ischemic cardiomyopathy with EF 25-30%, recent diagnosis of bladder cancer with hematuria by Dr. Grubbs who presents emergency room with acute onset of dizziness while he was watching TV at 10:30 yesterday evening associated with generalized weakness with any type of incision changes. At that time, patient states that he did not have any chest pain, palpitations, nor any shortness of breath. Due to the symptoms of acute dizziness with associated nausea, he came into emergency for evaluation. While he was in the emergency room, he was found to have elevated troponin I and admitted to the hospital for evaluation with Dr. Reyes, his licensed appraiser. He states that he due to his hematuria from his recent cystoscope procedure in which bladder cancer was diagnosed, he was told to stop his aspirin and Pradaxa. He has not been on these 2 medications. He states the past 24-48 hours he has hematuria has improved since he lost all his urologist. He states that he has not had previous symptoms of this type of dizziness. He denies any other symptoms of difficulty swallowing, numbness, speech problems, nor any focalized weakness. He states that he usually walks independently and currently lives alone but does receive home health care. He denies any symptoms of dysuria or urinary frequency or urgency. Day catheter was placed during this admission. Currently, he is chest pain-free and has no palpitations. He reports that his dizziness has improved overnight and now has resolved. Review of Systems Constitutional: COMPLAINS OF: Fatigue, Dizziness, DENIES: Fever, Chills, Change in appetite Endocrine: DENIES: Heat/cold intolerance Eyes: DENIES: Blurred vision, Eye pain, Vision loss Ears, nose, mouth, throat: DENIES: Hearing loss, Nasal discharge, Throat pain, Ear Pain, Sinus Pain Respiratory: DENIES: Cough, Sputum production, Shortness of breath Cardiovascular: COMPLAINS OF: Lower Extremity Edema (chronic), DENIES: Chest pain, Palpitations, Dyspnea on Exertion Gastrointestinal: COMPLAINS OF: Nausea, DENIES: Abdominal pain, Black stools, Bloody stools, Constipation, Diarrhea, Vomiting, Difficulty Swallowing Genitourinary: COMPLAINS OF: Hematuria, DENIES: Urinary frequency, Urgency, Dysuria, Penile Discharge, Testicular Pain, Testicular Swelling Musculoskeletal: DENIES: Joint pain, Muscle aches, Stiffness Integumentary: DENIES: Rash Hematologic/lymphatic: COMPLAINS OF: Bruising, DENIES: Lymphadenopathy Immunologic/allergic: DENIES: Eczema Neurologic: DENIES: Headache, Localized weakness, Paresthesias Psychiatric: DENIES: Anxiety, Depression, Suicidal Ideation Past Family Social History Past Medical History Atrial fibrillation Ischemic cardiomyopathy with ejection fraction 25-30% Bladder cancer Hyperlipidemia CAD Past Surgical History AICD and pacemaker Cystoscope Reported Medications Bactrim DS (Sulfamethoxazole-Trimethoprim) 800-160 Mg Tab 1 Tab PO BID Hydrocodone-Acetaminophen 5-325 mg Tab 1 Tab PO Q4H PRN Colace (Docusate Sodium) 100 Mg Cap 100 Mg PO BID Pradaxa (Dabigatran) 150 Mg Cap 150 Mg PO BID Aspirin 325 Mg Tab 325 Mg PO DAILY Multivitamin Adults (Multiple Vitamins W/ Minerals) 1 Tab 1 Tab PO DAILY Fish Oil 1000 mg ([place]-3 Fatty Acids) 1 Cap Cap 1,000 Mg PO DAILY Nitrostat SL (Nitroglycerin) 0.4 Mg Subl 0.4 Mg SL DIRECTED PRN 1 tablet under the tongue as needed for chest pain. Repeat every 5 minutes for a total of 3 DOSES or call 911 if NO relief. Vitamin D (Cholecalciferol) 1,000 Unit Tab 1,000 Units PO DAILY Ramipril 10 Mg Cap 10 Mg PO DAILY Simvastatin 40 Mg Tab 40 Mg PO HS Allergies: Coded Allergies: Isosorbide (Verified Allergy, Severe, Itching, 05/14/16) AND SWELLING Lipitor (Verified Adverse Reaction, Severe, SORE JOINTS, 05/14/16) Family History Mother had stroke Father had TIAs Social History Lives alone, does not smoke cigarettes or drink alcohol Physical Exam Vital Signs Vital Signs Date Time Temp Pulse Resp B/P Pulse Ox O2 Delivery O2 Flow Rate FiO2 05/17/16 11:37 98.1 56 20 111/65 96 05/17/16 10:00 59 05/17/16 10:00 18 05/17/16 09:17 60 05/17/16 08:32 98.6 92 20 121/66 95 05/17/16 08:32 53 05/17/16 07:38 53 13 146/85 98 05/17/16 03:08 69 16 118/58 97 Room Air 05/17/16 01:48 18 98 Room Air 05/17/16 00:58 97.6 55 14 122/60 95 Physical Exam GENERAL: This is a well-nourished, obese, well-developed patient, in no apparent distress. SKIN: Bilateral upper extremity ecchymosis or lesions. Cool and dry. HEAD: Atraumatic. Normocephalic. No temporal or scalp tenderness. EYES: Pupils equal round and reactive. Extraocular motions intact. No scleral icterus. No injection or drainage. ENT: Nose without bleeding, purulent drainage or septal hematoma. Throat without erythema, tonsillar hypertrophy or exudate. Uvula midline. Airway patent. NECK: Trachea midline. No JVD or lymphadenopathy. Supple, nontender, no meningeal signs. CARDIOVASCULAR: Irregular rate and rhythm with 2/6 systolic ejection murmur RESPIRATORY: Clear to auscultation. Breath sounds equal bilaterally. No wheezes , rales, or rhonchi. GASTROINTESTINAL: Abdomen soft, obese non-tender, nondistended. No guarding or rebound, normoactive bowel sounds. MUSCULOSKELETAL: Extremities without clubbing, cyanosis, 2+ edema NEUROLOGICAL: Awake and alert to person place time and situation. Cranial nerves II through XII intact. Motor and sensory grossly within normal limits. Five out of 5 muscle strength in all muscle groups upper extremity and lower extremity. Normal speech. Laboratory Laboratory Tests Test 05/17/16 05/17/16 01:45 10:25 White Blood Count 15.6 Red Blood Count 4.04 Hemoglobin 11.6 Hematocrit 35.6 Mean Corpuscular Volume 88.3 Mean Corpuscular Hemoglobin 28.7 Mean Corpuscular Hemoglobin 32.5 Concent Red Cell Distribution Width 14.1 Platelet Count 395 Mean Platelet Volume 8.4 Neutrophils (%) (Auto) 81.7 Lymphocytes (%) (Auto) 7.6 Monocytes (%) (Auto) 8.1 Eosinophils (%) (Auto) 1.4 Basophils (%) (Auto) 1.2 Neutrophils # (Auto) 12.8 Lymphocytes # (Auto) 1.2 Monocytes # (Auto) 1.3 Eosinophils # (Auto) 0.2 Basophils # (Auto) 0.2 CBC Comment DIFF FINAL Differential Comment Prothrombin Time 16.7 Prothromb Time International 1.5 Ratio Activated Partial 56.7 Thromboplast Time Sodium Level 135 Potassium Level 4.6 Chloride Level 98 Carbon Dioxide Level 29.4 Anion Gap 8 Blood Urea Nitrogen 45 Creatinine 2.86 Estimat Glomerular Filtration 21 Rate Random Glucose 114 Calcium Level 8.8 Total Bilirubin 0.4 Aspartate Amino Transf 85 (AST/SGOT) Alanine Aminotransferase 67 (ALT/SGPT) Alkaline Phosphatase 183 Troponin I 1.58 1.17 Total Protein 6.9 Albumin 2.6 Result Diagram: 05/17/16 0145 05/17/16 0145 Imaging Last Impressions Head CT 05/17/16 0119 Signed Impressions: Service Date/Time: May 02:24 - CONCLUSION: No acute disease. Jayson Lopez Jr., MD Chest X-Ray 05/17/16 0000 Signed Impressions: Service Date/Time: May 03:17 - CONCLUSION: No acute disease. Jayson Lopez Jr., MD Assessment and Plan Problem List: (1) TIA (transient ischemic attack) ICD Code: G45.9 Status: Acute (2) Acute kidney injury ICD Code: N17.9 Status: Acute (3) CKD (chronic kidney disease), stage III ICD Code: N18.3 Status: Chronic (4) Hematuria ICD Code: R31.9 Status: Acute Assessment and Plan A 80-year-old white male presents to the emergency room with acute onset of dizziness with a recent diagnosis of bladder cancer and status post hematuria from cystoscope and has been holding his home aspirin and Pradaxa. 1. Acute TIA with a history of chronic atrial fibrillation CT of the brain is negative however cannot obtain MRI of the brain due to history of AICD pacemaker aspirin given the emergency room and will start low-dose heparin infusion due to his current hematuria from Day insertion. Obtain carotid ultrasound, 2-D echo reviewed as patient has a history of chronic ischemic cardiomyopathy with EF of 25 30%. Will obtain neurology consultation along with a urology consultation as risk and benefits of anticoagulation hematuria needs to be evaluated during this hospitalization. Continue close neurological checks. 2. Recent diagnosis bladder cancer status post cystoscopy with hematuria consult his urologist due to continued hematuria status post Day placement due to his recent TIA. Consider bladder irrigation. We'll continue to monitor closely on heparin drip that's initiated his acute TIA. Will monitor hemoglobin closely. 3. Elevated troponin Ilikely due to acute kidney injury superimposed on chronic kidney disease stage III with cardiorenal syndrome. Patient seen by Dr. Reyes and no further workup to be done. 4. Acute kidney injury superimposed on chronic kidney disease stage III patient may have some components obstruction due to bladder cancer, will monitor closely with gentle hydration but careful with the I&O due to history of chronic systolic congestive heart failure due to ischemic cardiomyopathy. 5. Hyperlipidemiaresume home statin. Patient states he had side effects of joint pain from previous Lipitor but does tolerate his current home statin, simvastatin. 6. History of chronic atrial fibrillation status post AICD and pacemakerlow dose Coreg started by Dr. Reyes 7. DVT prophylaxiscurrently heparin started due to acute TIA however will monitor closely hemoglobin due to his history hematuria. Discussed Condition With Brother and [id number] at bedside Physician Certification 2 Midnight Certification Type: Admission for Inpatient Services Order for Inpatient Services The services are ordered in accordance with Medicare regulations or non- Medicare payer requirements, as applicable. In the case of services not specified as inpatient-only, they are appropriately provided as inpatient services in accordance with the 2-midnight benchmark. Estimated LOS (days): 3 days is the estimated time the patient will need to remain in the hospital, assuming treatment plan goals are met and no additional complications. Post-Hospital Plan: Home Health Linette Luis MD May 17, 2016 13:17
[2016-05-17 14:27] LABS: APTT (PATIENT) 51.1 SEC (24.3-30.1)
[2016-05-17] MEDS: HEPARIN-D5W INJ 250 ML IV SCH (14:59)
--- NOTE | 2016-05-17 15:33 | MB ---
cc: PORFIRIO GUTIÉRREZ MD DATE OF CONSULTATION: 05/17/2016 REASON FOR CONSULTATION 1. T2 muscle invasive bladder cancer. 2. Gross hematuria. 3. History of prostate cancer on watchful waiting. 4. Acute renal failure. HISTORY OF PRESENT ILLNESS The patient is a 80-year-old male with a history of prostate cancer on watchful waiting with a recent new diagnosis of T2 muscle invasive bladder cancer status post cystoscopy, TURBT last week, who presented to the emergency room last evening with acute onset of dizziness, nausea, and cold sweats while watching TV around last night. While he was in the emergency room being evaluated he was found to have elevated troponin as well as creatinine of up to 2.8. 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 The patient was just seen in my office yesterday afternoon and had been doing well. He was in the ER earlier this week with clot retention and Day catheter was placed. He was also admitted in the hospital approximately two weeks ago with an episode of gross hematuria, where he was found to have a bladder mass and right hydronephrosis. His Pradaxa and aspirin were held for over a week until he had his TURBT last week. Currently he denies any abdominal pain, flank pain, fevers or chills at this time, he does feel much better. He was scheduled for a PET scan as an outpatient to rule out metastatic bladder cancer and he was possibly being set up with oncologist for possible bladder sparing surgery with chemotherapy and radiation. PAST MEDICAL HISTORY 1. Atrial fibrillation. 2. Ischemic cardiomyopathy with ejection fraction 25-30%. 3. T2 muscle invasive bladder cancer. 4. Hyperlipidemia. 5. Coronary artery disease. 6. Prostate cancer. 7. History of BPH. 8. History of erectile dysfunction. PAST SURGICAL HISTORY 1. He is status post cystoscopy and TURBT status post TURP. 2. He has had AICD with pacemaker placement. MEDICATION Home medications include: 1. Bactrim DS one p.o. b.i.d. 2. Colace 100 mg p.o. b.i.d. 3. Pradaxa 150 mg p.o. b.i.d. 4. Aspirin 325 mg p.o. daily. 5. Ramipril 10 mg p.o. daily. 6. Simvastatin 40 mg p.o. q.h.s. ALLERGIES ISOSORBIDE AND LIPITOR. FAMILY HISTORY Negative for urolithiasis, negative for genitourinary malignancies. Both mother and father had strokes. SOCIAL HISTORY He currently lives alone. He has history of smoking in the past. Does not drink alcohol. No illicit drugs. PHYSICAL EXAMINATION VITAL SIGNS: Temperature 98.1, pulse 56, respiratory rate 20, BP 111/65, sating 96% on room air. GENERAL: He is alert and oriented x3. No apparent distress. Pleasant, cooperative gentleman who appears his stated age. HEAD: Normocephalic, atraumatic. EYES: No scleral icterus. Extraocular muscles intact. SKIN: No ulcers or rashes. NECK: Neck is supple. Trachea is midline. No JVD. HEART: Regular rate and rhythm. No murmurs, gallops or rubs. LUNGS: Clear to auscultation bilaterally. No wheezes, rales or rhonchi. ABDOMEN: Soft, obese, nontender, nondistended. Positive bowel sounds. GENITOURINARY: His penis is uncircumcised. Testes descended bilaterally, normal size and consistency. RECTAL EXAM: Not indicated at this time. EXTREMITIES: Show 2+ pitting edema but nontender with no cyanosis. PSYCHE: Normal affect. MUSCULOSKELETAL: Full range of motion in all four extremities. LABORATORY DATA Labs show a white count of 15.6, hemoglobin 11.6, hematocrit 35.6, platelet count 395, sodium 135, potassium 4.6, chloride 98, bicarb 29.4, BUN 45, creatinine 2.86, glucose 114, calcium 8.8. Troponin 1.58. His INR was 1.5. IMAGING STUDIES Renal ultrasound is currently pending. ASSESSMENT AND PLAN The patient is an 80-year-old male with a new diagnosis of T2 muscle invasive bladder cancer status post cystoscopy, TURBT last week with prostate cancer, hydronephrosis, admitted for possible myocardial infarction, TIA with acute renal failure. PLAN 1. Agree with renal ultrasound at this time, will follow-up on the results. If his kidney appears to be obstructed on the right side, would recommend interventional radiology to place nephrostomy tube with antegrade stent as the tumor that was resected last week completely encompassed the right ureteral orifice and was unable to visualize it. However, if there is no evidence of obstruction of his right kidney then likely the elevated creatinine is due to ATN and possibly cardiorenal syndrome. 2. Would continue the Day catheter at this time. Would hold off on continuous bladder irrigation as the catheter seems to be draining on its own. 3. He will still need a PET scan as an outpatient to rule out metastatic bladder cancer. 4. Will follow his hemoglobin at this time. Thank you for this consult, will follow along with you. Porfirio Gutiérrez MD EMRyann/TLL /2:39 PM /2:55 PM
[2016-05-17] MEDS: INSULIN ASPART SUPPLEMENTAL SCALE SQ SCH ×2 (16:00→21:00)
[2016-05-17 17:46] LABS: HEMOGLOBIN A1a 1.3 %; HEMOGLOBIN Ao 82.8 %; HEMOGLOBIN LA1C 2.3 %; HEMOGLOBIN P3 6.4 %
[2016-05-17] MEDS ORDERED: SULFAMETHOXAZOLE-TRIMETHOPRIM DS 800-160 MG TAB PO SCH (21:00)
[2016-05-17] MEDS: SODIUM CHLORIDE 0.9% FLUSH 10 ML FLUSH IV FLUSH SCH (21:00)
[2016-05-17 21:20] LABS: APTT (PATIENT) 81.8 SEC (24.3-30.1)
[2016-05-17] MEDS: PRAVASTATIN SOD 80 MG TAB PO SCH (21:59)
--- NOTE | 2016-05-17 23:45 | RADRPT ---
EXAM DATE/TIME: 05/17/2016 22:43 [facility] COMPARISON: No previous studies available for comparison. INDICATIONS : Increased BUN/Creatinine. MEDICAL HISTORY : Myocardial infarction. Hypercholesterolemia. Bladder cancer. Congestive heart failure. Coronary art dave disease. Atrial fibrillation. Diverticulitis. Prostate cancer. Left ear cancer. Radiation therap y. SURGICAL HISTORY : Tonsillectomy. Pacemaker. Appendectomy. Cardaic catheterization. Coronary stent. Left knee replacemen t. Bladder surgery. ENCOUNTER: Initial ACUITY: 1 day PAIN SCORE: 0/10 LOCATION: Bilateral flank MEASUREMENTS: RIGHT KIDNEY: 13.5 x 5.9 x 6.1 cm LEFT KIDNEY: 12.5 x 6.7 x 6.7 cm FINDINGS: There is no hydronephrosis. No definite solid mass is identified. No definite stone is identified f or technique. The bladder is decompressed with a Day. There is a small approximately 1.8 cm simple cyst in the right kidney. CONCLUSION: Unremarkable renal ultrasound except for right renal cyst. Truman Villareal MD on May 17, 2016 at 23:42 Board Certified Radiologist. This report was verified electronically.
[2016-05-18] VITALS (25 sets, daily range): BP systolic 108–150; BP diastolic 56–73; PULSE 48–67; RESP 16–20; TEMP 96.9–98.2; O2SAT 94–97
--- NOTE | 2016-05-18 00:23 | RADRPT ---
EXAM DATE/TIME: 05/17/2016 22:57 [facility] COMPARISON: No previous studies available for comparison. INDICATIONS : Cerebrovascular accident. MEDICAL HISTORY : Myocardial infarction. Carcinoma, bladder. Hypercholesterolemia. Afib. Congestive heart failure. Hyp ertension. Coronary artery disease. Kidney stones. SURGICAL HISTORY : Appendectomy. Total knee replacement, left. Tonsillectomy. Pacemaker. Coronoary stent. ENCOUNTER: Initial ACUITY: 1 day PAIN SCORE: 1/10 LOCATION: Bilateral neck PEAK SYSTOLIC VELOCITIES (cm/sec): ICA/CCA RATIO: Right: 1.2 Left: 1.5 ICA: Right: 113 Left: 179 CCA: Right: 97 Left: 122 ECA: Right: 91 Left: 79 VERTEBRAL: Right: 61 antegrade Left: 61 antegrade Elevated flow velocities and ICA/CCA ratios have been found to correlate with increased degrees of vessel stenosis, calculated as percentage of diameter relative to a normal segment of distal ICA/CCA FINDINGS: Antegrade flow is seen in both vertebral arteries. There is mild to moderate atherosclerotic plaquing at the origin of both ICAs without any significant stenosis. CONCLUSION: No evidence for hemodynamically significant stenosis. Truman Villareal MD on May 18, 2016 at 0:20 Board Certified Radiologist. This report was verified electronically.
[2016-05-18 05:23] LABS: AUTOMATED NEUTROPHIL # 7.3 TH/MM3 (1.8-7.7); BASOPHIL # 0.1 TH/MM3 (0-0.2); BASOPHIL % 0.9 % (0.0-2.0); EOSINOPHIL # 0.4 TH/MM3 (0-0.4); EOSINOPHIL % 3.9 % (0.0-4.0); HEMATOCRIT 32.1 % (39.0-51.0); HEMO FLAGS DIFF FINAL; LYMPH % 14.6 % (9.0-44.0); LYMPHOCYTE # 1.5 TH/MM3 (1.0-4.8); MEAN CELL VOLUME 86.8 FL (80.0-100.0); MEAN CORPUSCULAR HGB CONC 34.5 % (32.0-36.0); MONO % 9.3 % (0.0-8.0); NEUT % 71.3 % (16.0-70.0); PLATELET COUNT 392 TH/MM3 (150-450); RED CELL DISTRIBUTION WIDTH 13.7 % (11.6-17.2); WHITE BLOOD COUNT 10.3 TH/MM3 (4.0-11.0)
[2016-05-18 05:28] LABS: APTT (PATIENT) 64.3 SEC (24.3-30.1)
[2016-05-18 05:46] LABS: BICARBONATE 25.6 MEQ/L (21.0-32.0); POTASSIUM 4.7 MEQ/L (3.5-5.1)
[2016-05-18 05:50] LABS: HDL CHOLESTEROL 29.3 MG/DL (40.0-60.0)
[2016-05-18] MEDS: INSULIN ASPART SUPPLEMENTAL SCALE SQ SCH ×4 (06:23→21:00)
--- NOTE | 2016-05-18 07:33 | PD.CARD.PN ---
Subjective Subjective Remarks Pt without dizziness, no CV complaints Objective Medications Current Medications Medications (Trade) Dose Ordered Sig/Brianne Route Start Time Stop Time Status Last Admin (Zofran Inj) 4 mg Q8HR PRN IV PUSH 05/17/16 04:30 (Tylenol) 650 mg Q4H PRN PO 05/17/16 04:30 05/17/16 08:54 (Coreg) 3.125 mg Q12HR PO 05/17/16 09:00 05/17/16 21:59 (NS Flush) 2 ml BID IV FLUSH 05/17/16 21:00 (NS Flush) 2 ml UNSCH PRN IV FLUSH 05/17/16 12:30 (D50w (Vial) Inj) 25 ml UNSCH PRN IV PUSH 05/17/16 12:30 (Glucagon Inj) 1 mg UNSCH PRN OTHER 05/17/16 12:30 Aspirin 81 mg 81 mg DAILY CHEW 05/18/16 09:00 (Heparin-D5W Inj) 250 ml @ 0 mls/hr TITRATE IV 05/17/16 12:45 05/17/16 14:59 (Theragran M Tab) 1 tab DAILY PO 05/18/16 09:00 (Pravachol) 80 mg HS PO 05/17/16 21:00 05/17/16 21:59 Vital Signs / I&O Vital Signs Date Time Temp Pulse Resp B/P Pulse Ox O2 Delivery O2 Flow Rate FiO2 05/18/16 06:00 65 05/18/16 05:00 56 05/18/16 04:12 98.2 57 20 108/73 95 05/18/16 04:00 56 05/18/16 03:00 59 05/18/16 02:00 58 05/18/16 01:00 52 05/18/16 00:00 62 05/18/16 00:00 98.0 60 20 128/70 95 05/17/16 23:00 87 05/17/16 22:00 60 05/17/16 21:00 69 05/17/16 20:00 97.8 67 20 136/65 97 05/17/16 20:00 67 05/17/16 19:00 67 05/17/16 15:08 98.0 59 20 114/64 95 05/17/16 11:37 98.1 56 20 111/65 96 05/17/16 10:00 59 05/17/16 10:00 18 05/17/16 09:17 60 05/17/16 08:32 98.6 92 20 121/66 95 05/17/16 08:32 53 05/17/16 07:38 53 13 146/85 98 I/O 05/17/16 05/17/16 05/17/16 05/18/16 05/18/16 05/18/16 07:00 15:00 23:00 07:00 15:00 23:00 Intake Total 1160 ml 1270 ml Output Total 1250 ml 900 ml Balance -90 ml 370 ml Intake Oral 360 ml 240 ml IV Total 800 ml 1030 ml Output Urine Total 1250 ml 900 ml # Bowel Movements 1 Physical Exam GENERAL: Well developed, well nourished. No acute distress. HEENT: Jugular venous pressure is normal. CHEST: Lungs clear to auscultation bilaterally. Unlabored respiratory effort. CARDIAC: Regular rate and rhythm without S3, S4, or murmur. ABDOMEN: Soft, nontender. Bowel sounds present. EXTREMITIES: No clubbing, cyanosis, 1+ edema. Laboratory Laboratory Tests Test 05/17/16 05/17/16 05/17/16 05/17/16 10:25 13:51 15:26 20:50 Troponin I 1.17 NG/ML 0.87 NG/ML Activated Partial 51.1 SEC 81.8 SEC Thromboplast Time Hemoglobin A1c 6.2 % Test 05/18/16 04:45 White Blood Count 10.3 TH/MM3 Red Blood Count 3.70 MIL/MM3 Hemoglobin 11.1 GM/DL Hematocrit 32.1 % Mean Corpuscular Volume 86.8 FL Mean Corpuscular Hemoglobin 30.0 PG Mean Corpuscular Hemoglobin 34.5 % Concent Red Cell Distribution Width 13.7 % Platelet Count 392 TH/MM3 Mean Platelet Volume 8.4 FL Neutrophils (%) (Auto) 71.3 % Lymphocytes (%) (Auto) 14.6 % Monocytes (%) (Auto) 9.3 % Eosinophils (%) (Auto) 3.9 % Basophils (%) (Auto) 0.9 % Neutrophils # (Auto) 7.3 TH/MM3 Lymphocytes # (Auto) 1.5 TH/MM3 Monocytes # (Auto) 1.0 TH/MM3 Eosinophils # (Auto) 0.4 TH/MM3 Basophils # (Auto) 0.1 TH/MM3 CBC Comment DIFF FINAL Differential Comment Activated Partial 64.3 SEC Thromboplast Time Sodium Level 136 MEQ/L Potassium Level 4.7 MEQ/L Chloride Level 101 MEQ/L Carbon Dioxide Level 25.6 MEQ/L Anion Gap 9 MEQ/L Blood Urea Nitrogen 38 MG/DL Creatinine 2.37 MG/DL Estimat Glomerular Filtration 26 ML/MIN Rate Random Glucose 101 MG/DL Calcium Level 8.4 MG/DL Triglycerides Level 51 MG/DL Cholesterol Level 82 MG/DL LDL Cholesterol 43 MG/DL HDL Cholesterol 29.3 MG/DL Cholesterol/HDL Ratio 2.79 RATIO Imaging Last [address] 05/17/16 0119 Signed Impressions: Service Date/Time: May 02:24 - CONCLUSION: No acute disease. Jayson Lopez Jr., MD Renal Ultrasound 05/17/16 0000 Signed Impressions: Service Date/Time: May 22:43 - CONCLUSION: Unremarkable renal ultrasound except for right renal cyst. Truman Villareal MD Chest X-Ray 05/17/16 0000 Signed Impressions: Service Date/Time: May 03:17 - CONCLUSION: No acute disease. Jayson Lopez Jr., MD Carotid Artery Ultrasound 05/17/16 0000 Signed Impressions: Service Date/Time: May 22:57 - CONCLUSION: No evidence for hemodynamically significant stenosis. Truman Villareal MD Assessment and Plan Assessment and Plan Acute on chronic systolic heart failure - ECHO EF 25%, comparable to last at 30% -enzymes felt elevated secondary to CHF and Cr>2 -on BB, no ASH with CKD -appreciate renal input and fluid management -add SCD to assist with edema mobilization Ischemic cardiomyopathy - consider nuclear stress when CHF is stable Renal Insufficiency- per renal Atrial fibrillation- s/p ablation, Dizziness/possible TIA- pt was on supra-therapeutic pradaxa dose at the time María Reyes MD May 18, 2016 07:33
[2016-05-18] MEDS: SODIUM CHLORIDE 0.9% FLUSH 10 ML FLUSH IV FLUSH SCH ×2 (08:11→21:00)
[2016-05-18] MEDS: ASPIRIN 81 MG CHEW TAB CHEW SCH (08:11)
[2016-05-18] MEDS: MULTIVITAMINS/MINERALS THERAPEUTIC TAB PO SCH (08:11)
[2016-05-18] MEDS: CARVEDILOL 3.125 MG TAB PO SCH ×2 (08:12→21:00)
--- NOTE | 2016-05-18 08:19 | MB ---
cc: CALIN RODRIGUEZ M.D. DATE OF CONSULTATION 05/17/2016 REASON FOR CONSULTATION Vertigo HISTORY OF PRESENT ILLNESS Mr. Saxena is a very nice 80-year-old man with a history of cardiomyopathy who was in his usual state of health until last evening around 10:30 p.m. when he was watching TV sitting down. He turned to the left and suddenly felt a sense of vertigo with the room spinning around him. It lasted about two hours and then resolved. He had no tinnitus, no hearing loss. He had no other neurological symptoms. There was no double vision, slurred speech, focal weakness or numbness. PAST MEDICAL HISTORY 1. He has a history cardiomyopathy. 2. Atrial fibrillation 3. Bladder cancer 4. Hyperlipidemia 5. AICD pacemaker placement 6. Cystoscopy MEDICATIONS At home: 1. Bactrim 2. Hydrocodone as needed for pain 3. Colace 4. Pradaxa 150 mg b.i.d. 5. Aspirin 325 mg daily 6. Multivitamin 7. Fish oil 8. Nitrostat 9. Ramipril 10. Simvastatin ALLERGIES ISOSORBIDE AND LIPITOR NEUROLOGIC EXAMINATION VITAL SIGNS: Blood pressure is 114/64, pulse is 69, respiratory rate is 20, temperature is 98 degrees. Higher cortical functions are normal. Cranial nerves II-XII are normal. Extraocular movements are normal. There is no nystagmus. On motor exam, he has 5/5 strength of all groups in both upper and lower extremities. There is no drift. Fine motor skills are normal. Cerebellar testing is normal with no sign of dysmetria. Reflexes are symmetric. CT of the brain is normal. IMPRESSION I believe this is probably benign positional vertigo from a vestibular source. I do not find any signs on his exam to strongly suggested a TIA or stroke. He is unable to have an MRI of the brain due to the pacemaker. I do not feel any further neurologic evaluation is indicated at the present time. MD MARCO Harrell/EMILY /5:13 PM /8:12 AM
--- NOTE | 2016-05-18 08:51 | HHI.PR ---
Subjective Patient symptoms today feels better today than last 2 days. Denies flank pain, chest pain or shortness of breath. On Heparin gtt. Objective Vital Signs Vital Signs Date Time Temp Pulse Resp B/P Pulse Ox O2 Delivery O2 Flow Rate FiO2 05/18/16 08:00 97.8 60 16 135/70 95 05/18/16 08:00 60 05/18/16 06:00 65 05/18/16 05:00 56 05/18/16 04:12 98.2 57 20 108/73 95 05/18/16 04:00 56 05/18/16 03:00 59 05/18/16 02:00 58 05/18/16 01:00 52 05/18/16 00:00 62 05/18/16 00:00 98.0 60 20 128/70 95 05/17/16 23:00 87 05/17/16 22:00 60 05/17/16 21:00 69 05/17/16 20:00 97.8 67 20 136/65 97 05/17/16 20:00 67 05/17/16 19:00 67 05/17/16 15:08 98.0 59 20 114/64 95 05/17/16 11:37 98.1 56 20 111/65 96 05/17/16 10:00 59 05/17/16 10:00 18 05/17/16 09:17 60 Intake & Output 05/18/16 05/18/16 07:00 19:00 Intake Total 1270 ml Output Total 900 ml Balance 370 ml Intake Oral 240 ml IV Total 1030 ml Output Urine Total 900 ml Result Diagram: 05/18/16 0445 05/18/16 044 Imaging Renal U/S: no hydronephrosis Objective Remarks NAD. A/O x 3 abd soft, NT. No CVAT gabriel draining dark red urine. Medications and IVs Current Medications Medications (Trade) Dose Ordered Sig/Brianne Route Start Time Stop Time Status Last Admin (Zofran Inj) 4 mg Q8HR PRN IV PUSH 05/17/16 04:30 (Tylenol) 650 mg Q4H PRN PO 05/17/16 04:30 05/17/16 08:54 (Coreg) 3.125 mg Q12HR PO 05/17/16 09:00 05/18/16 08:12 (NS Flush) 2 ml BID IV FLUSH 05/17/16 21:00 05/18/16 08:11 (NS Flush) 2 ml UNSCH PRN IV FLUSH 05/17/16 12:30 (D50w (Vial) Inj) 25 ml UNSCH PRN IV PUSH 05/17/16 12:30 (Glucagon Inj) 1 mg UNSCH PRN OTHER 05/17/16 12:30 Aspirin 81 mg 81 mg DAILY CHEW 05/18/16 09:00 05/18/16 08:11 (Heparin-D5W Inj) 250 ml @ 0 mls/hr TITRATE IV 05/17/16 12:45 05/17/16 14:59 (Theragran M Tab) 1 tab DAILY PO 05/18/16 09:00 05/18/16 08:11 (Pravachol) 80 mg HS PO 05/17/16 21:00 05/17/16 21:59 Assessment and Plan Problem List: (1) Hematuria ICD Code: R31.9 Status: Acute (2) Acute kidney injury ICD Code: N17.9 Status: Acute (3) Bladder cancer ICD Code: C67.9 Status: Acute Assessment and Plan -Renal U/S negative for hydronephrosis. Creatinine improving. No acute intervention needed at this time. Likely ATN. -Hgb stable. -continue Gabriel catheter. Hematuria expected due to blood thinners following TURBT. If catheter stops draining, recommend changing to large (22Fr) 3 way gabriel and starting CBI. Otherwise, home with gabriel. Will void trial as outpatient. Porfirio Grubbs MD May 18, 2016 08:51
[2016-05-18] MEDS: HEPARIN-D5W INJ 250 ML IV SCH (10:31)
--- NOTE | 2016-05-18 11:45 | HHI.NPPN ---
Subjective General Problems: Anemia, Heart Disease, Hypertension Renal Failure: Chronic, Acute, Stage III History of Present Illness 80-year-old male with past medical history of Ischemic heart disease, atrial fibrillation, hyperlipidemia, congestive heart failure, history of renal stone prostate cancer and chronic kidney disease, came to the hospital with complaint of dizziness and near syncope. I was called to see the patient because of elevated BUN and creatinine patient has history of chronic kidney disease and seems like the baseline creatinine has been around 1.5-1.9. Additional Remarks Patient is alert, feeling better, breathing is better, no chest pain. Review of Systems General Constitutional: Fatigue Objective Data Data 05/17/16 05/18/16 19:00 07:00 Intake Total 1160 ml 1270 ml Output Total 1250 ml 900 ml Balance -90 ml 370 ml Intake Oral 360 ml 240 ml IV Total 800 ml 1030 ml Output Urine Total 1250 ml 900 ml # Bowel Movements 1 Vital Signs Date Time Temp Pulse Resp B/P Pulse Ox O2 Delivery O2 Flow Rate FiO2 05/18/16 09:00 60 05/18/16 08:00 97.8 60 16 135/70 95 05/18/16 08:00 60 05/18/16 07:00 51 05/18/16 06:00 65 05/18/16 05:00 56 05/18/16 04:12 98.2 57 20 108/73 95 05/18/16 04:00 56 05/18/16 03:00 59 05/18/16 02:00 58 05/18/16 01:00 52 05/18/16 00:00 62 05/18/16 00:00 98.0 60 20 128/70 95 05/17/16 23:00 87 05/17/16 22:00 60 05/17/16 21:00 69 05/17/16 20:00 97.8 67 20 136/65 97 05/17/16 20:00 67 05/17/16 19:00 67 05/17/16 15:08 98.0 59 20 114/64 95 -: 05/18/16 0445 05/18/16 0445 Physical Exam General Appearance: No Acute Distress, Comfortable Eyes Eye Exam: Pupils Equal Throat Throat Exam: Oral Mucosa Wasta & Moist Pulmonary Resp Exam: Breath Sounds Equal, No Distress, Decreased Bases Cardiology CV Exam: Regular, Normal Sinus Rhythm Gastrointestinal/Abdomen GI Exam: Soft, Non-Tender, Bowel Sounds Present Extremeties Extremities Exam: Trace Edema Neurologic Neuro Exam: Alert, Awake, Oriented Psychiatric Psych Exam: Appropriate Responses Assessment/Plan Assessment Summary: JENNIFER/Acute Renal Failure, Hypertension, CKD Stage III Problem List: (1) Bladder mass (2) Obstructive uropathy (3) Non-STEMI (non-ST elevated myocardial infarction) (4) Hematuria (5) CKD (chronic kidney disease), stage III (6) Acute kidney injury Plan Renal U/S did not show any Hydronephrosis./ Urology consult noted. Urine is still bloody. Creatinine is improving. Check UA for possible UTI. Avoid Nephrotoxins. His baseline Creatinine is close to 1.5-1.9. Jasson Tipton MD May 18, 2016 11:45
--- NOTE | 2016-05-18 13:40 | HHI.PR ---
Subjective Remarks No further dizziness. No headaches. No visual changes. No chest pain nor shortness of breath. No palpitations. Objective Vitals Vital Signs Date Time Temp Pulse Resp B/P Pulse Ox O2 Delivery O2 Flow Rate FiO2 05/18/16 11:00 98.0 60 16 127/67 94 05/18/16 10:00 59 05/18/16 09:00 60 05/18/16 08:00 97.8 60 16 135/70 95 05/18/16 08:00 60 05/18/16 07:00 51 05/18/16 06:00 65 05/18/16 05:00 56 05/18/16 04:12 98.2 57 20 108/73 95 05/18/16 04:00 56 05/18/16 03:00 59 05/18/16 02:00 58 05/18/16 01:00 52 05/18/16 00:00 62 05/18/16 00:00 98.0 60 20 128/70 95 05/17/16 23:00 87 05/17/16 22:00 60 05/17/16 21:00 69 05/17/16 20:00 97.8 67 20 136/65 97 05/17/16 20:00 67 05/17/16 19:00 67 05/17/16 15:08 98.0 59 20 114/64 95 I/O 05/17/16 05/17/16 05/17/16 05/18/16 05/18/16 05/18/16 07:00 15:00 23:00 07:00 15:00 23:00 Intake Total 1160 ml 1270 ml Output Total 1250 ml 900 ml Balance -90 ml 370 ml Intake Oral 360 ml 240 ml IV Total 800 ml 1030 ml Output Urine Total 1250 ml 900 ml # Bowel Movements 1 Result Diagram: 05/18/16 0445 05/18/16 0445 Other Results Item Value Date Time Bedside Blood Glucose 151 mg/dl 05/18/16 1145 Bedside Blood Glucose 101 mg/dl 05/18/16 0623 Imaging Last Impressions Head CT 05/17/16 0119 Signed Impressions: Service Date/Time: May 02:24 - CONCLUSION: No acute disease. Jayson Lopez Jr., MD Renal Ultrasound 05/17/16 0000 Signed Impressions: Service Date/Time: May 22:43 - CONCLUSION: Unremarkable renal ultrasound except for right renal cyst. Truman Villareal MD Chest X-Ray 05/17/16 0000 Signed Impressions: Service Date/Time: May 03:17 - CONCLUSION: No acute disease. Jayson Lopez Jr., MD Carotid Artery Ultrasound 05/17/16 0000 Signed Impressions: Service Date/Time: May 22:57 - CONCLUSION: No evidence for hemodynamically significant stenosis. Truman Villareal MD Objective Remarks GENERAL: This is a well-nourished, well-developed patient, in no apparent distress. CARDIOVASCULAR: Regular rate and irregular rhythm RESPIRATORY: Clear to auscultation. Breath sounds equal bilaterally. No wheezes , rales, or rhonchi. GASTROINTESTINAL: Abdomen soft, non-tender, obese nondistended. Normal, active bowel sounds MUSCULOSKELETAL: Extremities without clubbing, cyanosis, 2+ edema NEURO: Alert & Oriented x4 to person, place, time, situation. Moves all ext x4 , 5 out of 5 motor strength upper and lower A/P Problem List: (1) TIA (transient ischemic attack) ICD Code: G45.9 Status: Acute (2) Acute kidney injury ICD Code: N17.9 Status: Acute (3) CKD (chronic kidney disease), stage III ICD Code: N18.3 Status: Chronic (4) Hematuria ICD Code: R31.9 Status: Acute Assessment and Plan A 80-year-old white male presents to the emergency room with acute onset of dizziness with a recent diagnosis of bladder cancer and status post hematuria from cystoscope and has been holding his home aspirin and Pradaxa. 1. Acute TIA with a history of chronic atrial fibrillation CT of the brain is negative however cannot obtain MRI of the brain due to history of AICD pacemaker aspirin given the emergency room and will start low-dose heparin infusion due to his current hematuria from Day insertion. Obtain carotid ultrasound which was negative, 2-D echo reviewed as patient has a history of chronic ischemic cardiomyopathy with EF of 25 30%. Neurology felt that this episode was more of a vertigo versus acute TIA. However due to his CHADS score 3 with a history of cardiomyopathy/ CHF, age, chronic atrial fibrillation he is extremely high risk for TIA. Urology did recommend to continue with anticoagulation as hemoglobin continues to be stable. He will need to go home on Day catheter with outpatient follow-up. We'll need to consider transitioning to warfarin versus Eliquis upon discharge to home if hemoglobin remains stable tomorrow. Continue close neurological checks. Risk and benefits of anticoagulation with his hematuria has been evaluated and discussed thoroughly with the patient today. Continue close neurological checks. 2. Recent diagnosis bladder cancer status post cystoscopy with hematuria appreciate urologist consult due to continued hematuria status post Day placement. Hemoglobin remains stable on anticoagulation. Urology is recommending continued Day upon discharge to home with home health care and follow-up with urology. If Day does not drain well, can initiate 3-way continuous bladder irrigation however this time current Day ring properly. 3. Elevated troponin Ilikely due to acute kidney injury superimposed on chronic kidney disease stage III with cardiorenal syndrome. Patient seen by Dr. Reyes and no further workup to be done. 4. Acute kidney injury superimposed on chronic kidney disease stage IIIno obstruction or renal ultrasound, will monitor closely with gentle hydration but careful with the I&O due to history of chronic systolic congestive heart failure due to ischemic cardiomyopathy. BUN and creatinine improved overnight. Nephrology currently following. 5. Hyperlipidemiaresume home statin. Patient states he had side effects of joint pain from previous Lipitor but does tolerate his current home statin, simvastatin. 6. History of chronic atrial fibrillation status post AICD and pacemakerlow dose Coreg started by Dr. Reyes 7. DVT prophylaxiscurrently heparin . Discharge Planning Home with home health care when stable. Linette Luis MD May 18, 2016 13:40
[2016-05-18 13:54] LABS: APTT (PATIENT) 51.8 SEC (24.3-30.1)
[2016-05-18] MEDS: PRAVASTATIN SOD 80 MG TAB PO SCH (21:00)
[2016-05-19] VITALS (15 sets, daily range): BP systolic 108–141; BP diastolic 62–72; PULSE 58–64; RESP 18–20; TEMP 97.9–98.7; O2SAT 93–98
[2016-05-19] MEDS: ACETAMINOPHEN 325 MG TAB PO PRN (02:28)
[2016-05-19 05:54] LABS: BLOOD, URINE MOD (NEG); COMMENT (UR) CATH-CULTURE IND; CULTURE IF INDICATED CATH CULTURE IND; GLUCOSE,URINE NEG (NEG); KETONE, URINE NEG (NEG); NITRITE,URINE NEG (NEG); PH, URINE 7.5 (5.0-8.5)
[2016-05-19 05:55] LABS: URINE COLOR LIGHT-BROWN (YELLW/STRAW)
[2016-05-19] MEDS: INSULIN ASPART SUPPLEMENTAL SCALE SQ SCH ×4 (06:45→21:00)
--- NOTE | 2016-05-19 07:53 | PD.CARD.PN ---
Subjective Subjective Remarks no CV complaints Objective Medications Current Medications Medications (Trade) Dose Ordered Sig/Brianne Route Start Time Stop Time Status Last Admin (Zofran Inj) 4 mg Q8HR PRN IV PUSH 05/17/16 04:30 (Tylenol) 650 mg Q4H PRN PO 05/17/16 04:30 05/19/16 02:28 (Coreg) 3.125 mg Q12HR PO 05/17/16 09:00 05/18/16 21:00 (NS Flush) 2 ml BID IV FLUSH 05/17/16 21:00 05/18/16 21:00 (NS Flush) 2 ml UNSCH PRN IV FLUSH 05/17/16 12:30 (D50w (Vial) Inj) 25 ml UNSCH PRN IV PUSH 05/17/16 12:30 (Glucagon Inj) 1 mg UNSCH PRN OTHER 05/17/16 12:30 Aspirin 81 mg 81 mg DAILY CHEW 05/18/16 09:00 05/18/16 08:11 (Heparin-D5W Inj) 250 ml @ 0 mls/hr TITRATE IV 05/17/16 12:45 05/18/16 10:31 (Theragran M Tab) 1 tab DAILY PO 05/18/16 09:00 05/18/16 08:11 (Pravachol) 80 mg HS PO 05/17/16 21:00 05/18/16 21:00 Vital Signs / I&O Vital Signs Date Time Temp Pulse Resp B/P Pulse Ox O2 Delivery O2 Flow Rate FiO2 05/19/16 07:00 97.9 60 20 124/62 96 05/19/16 07:00 63 05/19/16 06:00 59 05/19/16 05:00 64 05/19/16 04:00 64 05/19/16 04:00 98.0 59 18 108/70 96 05/19/16 03:00 63 05/19/16 02:00 64 05/19/16 01:00 59 05/19/16 00:00 60 05/19/16 00:00 98.0 63 18 141/72 95 05/18/16 23:00 64 05/18/16 22:00 64 05/18/16 22:00 64 05/18/16 21:00 64 05/18/16 20:00 60 05/18/16 20:00 97.8 61 18 150/56 95 05/18/16 19:00 60 05/18/16 18:00 53 05/18/16 17:00 52 05/18/16 16:00 59 05/18/16 15:00 96.9 62 16 140/66 97 05/18/16 14:00 48 05/18/16 13:00 59 05/18/16 12:00 67 05/18/16 11:00 98.0 60 16 127/67 94 05/18/16 10:00 59 05/18/16 09:00 60 05/18/16 08:00 97.8 60 16 135/70 95 05/18/16 08:00 60 I/O 05/18/16 05/18/16 05/18/16 05/19/16 05/19/16 05/19/16 07:00 15:00 23:00 07:00 15:00 23:00 Intake Total 1270 ml 727 ml 1450 ml Output Total 900 ml 1600 ml 600 ml Balance 370 ml -873 ml 850 ml Intake Oral 240 ml 600 ml 420 ml IV Total 1030 ml 127 ml 1030 ml Output Urine Total 900 ml 1600 ml 600 ml # Bowel Movements 1 Physical Exam GENERAL: Well-nourished, well-developed patient. SKIN: Warm and dry. HEAD: Normocephalic. EYES: No scleral icterus. No injection or drainage. NECK: Supple, trachea midline. No JVD or lymphadenopathy. CARDIOVASCULAR: Irr Irr RESPIRATORY: Breath sounds equal bilaterally. No accessory muscle use. GASTROINTESTINAL: Abdomen soft, non-tender, nondistended. EXTREMITIES: No cyanosis, or edema. NEUROLOGICAL: Awake, alert, and oriented x 3. Non-focal. Laboratory Laboratory Tests Test 05/18/16 05/19/16 13:15 04:07 Activated Partial 51.8 SEC Thromboplast Time Urine Color LIGHT-BROWN Urine Turbidity HAZY Urine pH 7.5 Urine Specific [place] 1.014 Urine Protein 300 mg/dL Urine Glucose (UA) NEG mg/dL Urine Ketones NEG mg/dL Urine Occult Blood MOD Urine Nitrite NEG Urine Bilirubin NEG Urine Urobilinogen LESS THAN 2.0 MG/DL Urine Leukocyte Esterase TRACE Urine RBC /hpf Urine WBC 130 /hpf Microscopic Urinalysis Comment CATH-CULTURE IND Imaging Last Impressions Head CT 05/17/16 0119 Signed Impressions: Service Date/Time: May 02:24 - CONCLUSION: No acute disease. Jayson Lopez Jr., MD Renal Ultrasound 05/17/16 Signed Impressions: Service Date/Time: May 22:43 - CONCLUSION: Unremarkable renal ultrasound except for right renal cyst. Truman Villareal MD Chest X-Ray 05/17/16 Signed Impressions: Service Date/Time: May 03:17 - CONCLUSION: No acute disease. Jayson Lopez Jr., MD Carotid Artery Ultrasound 05/17/16 Signed Impressions: Service Date/Time: May 22:57 - CONCLUSION: No evidence for hemodynamically significant stenosis. Truman Villareal MD Assessment and Plan Problem List: (1) CAD (coronary artery disease) Assessment and Plan: Acute on chronic systolic heart failure EF 25%. Cardio-Renal syndrome Cardiac enzymes felt elevated secondary to CHF and Cr>2 On BB, no ASH with CKD Appreciate renal input and fluid management Cont medical management Consider nuclear stress when CHF resolves (2) Renal insufficiency (3) Vertigo (4) TIA (transient ischemic attack) Phil Arnold MD May 19, 2016 07:53
[2016-05-19] MEDS: MULTIVITAMINS/MINERALS THERAPEUTIC TAB PO SCH (08:38)
[2016-05-19] MEDS: CARVEDILOL 3.125 MG TAB PO SCH ×2 (08:38→20:53)
[2016-05-19] MEDS: ASPIRIN 81 MG CHEW TAB CHEW SCH (08:38)
[2016-05-19] MEDS: SODIUM CHLORIDE 0.9% FLUSH 10 ML FLUSH IV FLUSH SCH ×2 (08:41→20:53)
[2016-05-19] MEDS: HEPARIN-D5W INJ 250 ML IV SCH (08:41)
[2016-05-19 11:20] LABS: APTT (PATIENT) 55.5 SEC (24.3-30.1)
[2016-05-19] MEDS ORDERED: traMADol HCL 50 MG TAB PO ONE (12:00)
--- NOTE | 2016-05-19 12:48 | HHI.NPPN ---
Subjective General Problems: Anemia, Heart Disease, Hypertension Renal Failure: Chronic, Acute, Stage III History of Present Illness 80-year-old male with past medical history of Ischemic heart disease, atrial fibrillation, hyperlipidemia, congestive heart failure, history of renal stone prostate cancer and chronic kidney disease, came to the hospital with complaint of dizziness and near syncope. I was called to see the patient because of elevated BUN and creatinine patient has history of chronic kidney disease and seems like the baseline creatinine has been around 1.5-1.9. Additional Remarks No acute complaints Review of Systems General Constitutional: Fatigue Objective Data Data 05/18/16 05/19/16 19:00 07:00 Intake Total 727 ml 1450 ml Output Total 1600 ml 600 ml Balance -873 ml 850 ml Intake Oral 600 ml 420 ml IV Total 127 ml 1030 ml Output Urine Total 1600 ml 600 ml # Bowel Movements 1 Vital Signs Date Time Temp Pulse Resp B/P Pulse Ox O2 Delivery O2 Flow Rate FiO2 05/19/16 11:00 98.7 64 20 116/63 96 05/19/16 07:00 97.9 60 20 124/62 96 05/19/16 07:00 63 05/19/16 06:00 59 05/19/16 05:00 64 05/19/16 04:00 64 05/19/16 04:00 98.0 59 18 108/70 96 05/19/16 03:00 63 05/19/16 02:00 64 05/19/16 01:00 59 05/19/16 00:00 60 05/19/16 00:00 98.0 63 18 141/72 95 05/18/16 23:00 64 05/18/16 22:00 64 05/18/16 22:00 64 05/18/16 21:00 64 05/18/16 20:00 60 05/18/16 20:00 97.8 61 18 150/56 95 05/18/16 19:00 60 05/18/16 18:00 53 05/18/16 17:00 52 05/18/16 16:00 59 05/18/16 15:00 96.9 62 16 140/66 97 05/18/16 14:00 48 05/18/16 13:00 59 -: 05/18/16 0445 05/18/16 0445 Microbiology 05/19/16 Urine Culture, Received Pending Physical Exam General Appearance: No Acute Distress, Comfortable Eyes Eye Exam: Pupils Equal Throat Throat Exam: Oral Mucosa [place] & Moist Pulmonary Resp Exam: Breath Sounds Equal, No Distress, Decreased Bases Cardiology CV Exam: Regular, Normal Sinus Rhythm Gastrointestinal/Abdomen GI Exam: Soft, Non-Tender, Bowel Sounds Present Extremeties Extremities Exam: Trace Edema Neurologic Neuro Exam: Alert, Awake, Oriented Psychiatric Psych Exam: Appropriate Responses Assessment/Plan Assessment Summary: JENNIFER/Acute Renal Failure, Hypertension, CKD Stage III Problem List: (1) Bladder mass (2) Obstructive uropathy (3) Non-STEMI (non-ST elevated myocardial infarction) (4) Hematuria (5) CKD (chronic kidney disease), stage III (6) Acute kidney injury (7) TIA (transient ischemic attack) Plan His baseline Creatinine is close to 1.5-1.9. JENNIFER with possible cardiorenal syndrome vs UTI. Admitted with TIA Creatinine improving (2.8 -> 2.3 today) 1.2L UOP with gabriel (plan to leave gabriel in place upon d/c, per ). Bladder cancer and hematuria Creatinine is improving - continue to monitor Urine culture pending Avoid Nephrotoxins. Continue to follow with cardiology, Eduard Victor MD May 19, 2016 12:48
[2016-05-19 13:14] LABS: HEMATOCRIT 29.9 % (39.0-51.0); REVIEW FLAG FINAL
[2016-05-19] MEDS ORDERED: MORPHINE SULFATE 4 MG/ML INJ IV PUSH ONE (13:30)
[2016-05-19] MEDS: ACETAMINOPHEN/HYDROcodone 325 MG/5 MG TAB PO PRN ×2 (13:56→20:55)
--- NOTE | 2016-05-19 13:59 | HHI.PR ---
Subjective Remarks Patient having moderatesevere penile pain this morning, continues to have led draining from Day catheter. Otherwise, no complaints. No fever, chills, headache, dizziness, chest pain, shortness of breath, abdominal pain. Objective Vitals Vital Signs Date Time Temp Pulse Resp B/P Pulse Ox O2 Delivery O2 Flow Rate FiO2 05/19/16 11:00 98.7 64 20 116/63 96 05/19/16 07:00 97.9 60 20 124/62 96 05/19/16 07:00 63 05/19/16 06:00 59 05/19/16 05:00 64 05/19/16 04:00 64 05/19/16 04:00 98.0 59 18 108/70 96 05/19/16 03:00 63 05/19/16 02:00 64 05/19/16 01:00 59 05/19/16 00:00 60 05/19/16 00:00 98.0 63 18 141/72 95 05/18/16 23:00 64 05/18/16 22:00 64 05/18/16 22:00 64 05/18/16 21:00 64 05/18/16 20:00 60 05/18/16 20:00 97.8 61 18 150/56 95 05/18/16 19:00 60 05/18/16 18:00 53 05/18/16 17:00 52 05/18/16 16:00 59 05/18/16 15:00 96.9 62 16 140/66 97 05/18/16 14:00 48 I/O 05/18/16 05/18/16 05/18/16 05/19/16 05/19/16 05/19/16 07:00 15:00 23:00 07:00 15:00 23:00 Intake Total 1270 ml 727 ml 1450 ml Output Total 900 ml 1600 ml 600 ml Balance 370 ml -873 ml 850 ml Intake Oral 240 ml 600 ml 420 ml IV Total 1030 ml 127 ml 1030 ml Output Urine Total 900 ml 1600 ml 600 ml # Bowel Movements 1 Result Diagram: 05/19/16 1238 05/18/16 0445 Urinary Catheter: Yes Assessment to: Continue A/P Problem List: (1) Bladder cancer ICD Code: C67.9 Status: Acute (2) Vertigo ICD Code: R42 Status: Acute (3) Acute kidney injury ICD Code: N17.9 Status: Acute (4) CKD (chronic kidney disease), stage III ICD Code: N18.3 Status: Chronic (5) Hematuria ICD Code: R31.9 Status: Acute Assessment and Plan 80-year-old white male presents to the emergency room with acute onset of dizziness with a recent diagnosis of bladder cancer and status post hematuria from cystoscope and has been holding his home aspirin and Pradaxa. Dizziness thought 2/2 BPPV. Acute TIA with a history of chronic atrial fibrillation IMAGING: CT of the brain is negative however cannot obtain MRI of the brain due to history of AICD pacemaker; carotid ultrasound which was negative; 2-D echo reviewed as patient has a history of chronic ischemic cardiomyopathy with EF of 25 30%. Neurology felt that this episode was more of a vertigo versus acute TIA. Due to CHADS score 3 with a history of cardiomyopathy/ CHF, age, chronic atrial fibrillation, patient is extremely high risk for TIA. Need to have anticoagulation continued. Bleeding from Day for which Pradaxa initially held. He will need to go home on Day catheter with outpatient follow-up. We' ll need to consider transitioning to warfarin versus Eliquis upon discharge to home if hemoglobin remains stable overnight, however it has acutely decreased from 11.1 to 9.8 in the past 24 hours. -Continue close neurological checks. aspirin given the emergency room and started low-dose heparin infusion due to hematuria from Day insertion. Recent diagnosis bladder cancer status post cystoscopy with hematuria. Home dose Pradaxa initially held, patient recently resumed on heparin. Hg decreased from 11.1 ->9.8 overnight. Patient is currently complaining of penile pain. -Tramadol 50 mg by mouth 1 now - [place] prn pain appreciate urologist consult due to continued hematuria status post Day placement. -continued Day upon discharge to home with home health care -follow-up with urology. -If Day does not drain well, can initiate 3-way continuous bladder irrigation Risk and benefits of anticoagulation with his hematuria has been evaluated and discussed thoroughly with the patient today. Elevated troponin Ilikely due to acute kidney injury superimposed on chronic kidney disease stage III. No further workup per cardiology Acute kidney injury superimposed on chronic kidney disease stage III; possible secondary to cardiorenal syndrome versus UTI. GFR improving from admission 21-> 26. -Appreciate nephrology recommendations no obstruction or renal ultrasound -Avoid nephrotoxic meds Hyperlipidemia resume home statin Pravastatin 80 mg by mouth at bedtime History of chronic atrial fibrillation status post AICD and pacemaker Coreg 3.125 mg by mouth every 12 hours started by cardiology DVT prophylaxiscurrently heparin . Diet: Heart healthy IV fluids: Hep-Lock IV fluids Discharge Planning Home with home health care, likely 12 days pending adequate pain control and no further Hg trending downward Sia Worthington MD May 19, 2016 13:59
--- NOTE | 2016-05-19 15:05 | HHI.PR ---
Subjective Patient symptoms today Patient with history bladder cancer and gross hematuria with recent development of suprapubic pain with poor catheter drainage. I instructed the nurse to place a Gabriel with a 20 Lao 10 cc unit and patient reports that since the Gabriel was replaced he feels much better. Greater than 300 cc urine was evacuated after the Gabriel catheter was replaced. Objective Vital Signs Vital Signs Date Time Temp Pulse Resp B/P Pulse Ox O2 Delivery O2 Flow Rate FiO2 05/19/16 11:00 98.7 64 20 116/63 96 05/19/16 07:00 97.9 60 20 124/62 96 05/19/16 07:00 63 05/19/16 06:00 59 05/19/16 05:00 64 05/19/16 04:00 64 05/19/16 04:00 98.0 59 18 108/70 96 05/19/16 03:00 63 05/19/16 02:00 64 05/19/16 01:00 59 05/19/16 00:00 60 05/19/16 00:00 98.0 63 18 141/72 95 05/18/16 23:00 64 05/18/16 22:00 64 05/18/16 22:00 64 05/18/16 21:00 64 05/18/16 20:00 60 05/18/16 20:00 97.8 61 18 150/56 95 05/18/16 19:00 60 05/18/16 18:00 53 05/18/16 17:00 52 05/18/16 16:00 59 05/18/16 15:00 96.9 62 16 140/66 97 Intake & Output 05/19/16 05/19/16 07:00 19:00 Intake Total 1450 ml Output Total 600 ml Balance 850 ml Intake Oral 420 ml IV Total 1030 ml Output Urine Total 600 ml Result Diagram: 05/19/16 1238 05/18/16 0445 Objective Remarks Gabriel catheter draining medium to dark red urine without clots Bladder not distended Medications and IVs Current Medications Medications (Trade) Dose Ordered Sig/Brianne Route Start Time Stop Time Status Last Admin (Zofran Inj) 4 mg Q8HR PRN IV PUSH 05/17/16 04:30 (Tylenol) 650 mg Q4H PRN PO 05/17/16 04:30 05/19/16 02:28 (Coreg) 3.125 mg Q12HR PO 05/17/16 09:00 05/19/16 08:38 (NS Flush) 2 ml BID IV FLUSH 05/17/16 21:00 05/18/16 21:00 (NS Flush) 2 ml UNSCH PRN IV FLUSH 05/17/16 12:30 (D50w (Vial) Inj) 25 ml UNSCH PRN IV PUSH 05/17/16 12:30 (Glucagon Inj) 1 mg UNSCH PRN OTHER 05/17/16 12:30 Aspirin 81 mg 81 mg DAILY CHEW 05/18/16 09:00 05/19/16 08:38 (Heparin-D5W Inj) 250 ml @ 0 mls/hr TITRATE IV 05/17/16 12:45 05/19/16 08:41 (Theragran M Tab) 1 tab DAILY PO 05/18/16 09:00 05/19/16 08:38 (Pravachol) 80 mg HS PO 05/17/16 21:00 05/18/16 21:00 ([place] 5-325 Mg) 1 tab Q4H PRN PO 05/19/16 13:30 05/19/16 13:56 Assessment and Plan Problem List: (1) Hematuria ICD Code: R31.9 Status: Acute (2) Acute kidney injury ICD Code: N17.9 Status: Acute (3) Bladder cancer ICD Code: C67.9 Status: Acute Assessment and Plan -Renal U/S negative for hydronephrosis. Creatinine improving. No acute intervention needed at this time. Likely ATN. -Hgb stable. -continue Gabriel catheter. Hematuria expected due to blood thinners following TURBT. If catheter stops draining, recommend changing to large (22Fr) 3 way gabriel and starting CBI. Otherwise, home with gabriel. Will void trial as outpatient. 05/19/2016 Status post replacement of occluded 16 Lao catheter with a 20 Lao unit with improved drainage. Irrigate Gabriel with sterile water when necessary. Further urologic management as previously outlined by patient's established urologist . Adonis Marx MD May 19, 2016 15:05
[2016-05-19] MEDS: PRAVASTATIN SOD 80 MG TAB PO SCH (20:53)
[2016-05-20] VITALS (14 sets, daily range): BP systolic 111–130; BP diastolic 63–70; PULSE 57–61; RESP 18–20; TEMP 96.4–98.7; O2SAT 95–100
[2016-05-20] MEDS: ACETAMINOPHEN/HYDROcodone 325 MG/5 MG TAB PO PRN ×4 (00:58→20:03)
[2016-05-20 05:21] LABS: AUTOMATED NEUTROPHIL # 8.6 TH/MM3 (1.8-7.7); BASOPHIL # 0.1 TH/MM3 (0-0.2); BASOPHIL % 0.7 % (0.0-2.0); EOSINOPHIL # 0.4 TH/MM3 (0-0.4); EOSINOPHIL % 3.5 % (0.0-4.0); HEMATOCRIT 26.7 % (39.0-51.0); HEMO FLAGS DIFF FINAL; LYMPH % 16.2 % (9.0-44.0); MEAN CELL VOLUME 87.5 FL (80.0-100.0); MEAN CORPUSCULAR HEMOGLOBIN 28.6 PG (27.0-34.0); MEAN CORPUSCULAR HGB CONC 32.6 % (32.0-36.0); MONO % 7.8 % (0.0-8.0); NEUT % 71.8 % (16.0-70.0); PLATELET COUNT 371 TH/MM3 (150-450); RED BLOOD COUNT 3.05 MIL/MM3 (4.50-5.90); RED CELL DISTRIBUTION WIDTH 13.8 % (11.6-17.2)
[2016-05-20 05:31] LABS: BICARBONATE 25.8 MEQ/L (21.0-32.0); POTASSIUM 4.5 MEQ/L (3.5-5.1)
[2016-05-20] MEDS: INSULIN ASPART SUPPLEMENTAL SCALE SQ SCH ×4 (06:01→20:04)
--- NOTE | 2016-05-20 07:53 | PD.CARD.PN ---
Subjective Subjective Remarks overnight events noted. Gross hematuria suprapubic pain with poor catheter drainage. Day was replaced greater than 300 cc urine/bloody No CV complaints Objective Medications Current Medications Medications (Trade) Dose Ordered Sig/Brianne Route Start Time Stop Time Status Last Admin (Zofran Inj) 4 mg Q8HR PRN IV PUSH 05/17/16 04:30 (Tylenol) 650 mg Q4H PRN PO 05/17/16 04:30 05/19/16 02:28 (Coreg) 3.125 mg Q12HR PO 05/17/16 09:00 05/19/16 20:53 (NS Flush) 2 ml BID IV FLUSH 05/17/16 21:00 05/19/16 20:53 (NS Flush) 2 ml UNSCH PRN IV FLUSH 05/17/16 12:30 (D50w (Vial) Inj) 25 ml UNSCH PRN IV PUSH 05/17/16 12:30 (Glucagon Inj) 1 mg UNSCH PRN OTHER 05/17/16 12:30 Aspirin 81 mg 81 mg DAILY CHEW 05/18/16 09:00 05/19/16 08:38 (Heparin-D5W Inj) 250 ml @ 0 mls/hr TITRATE IV 05/17/16 12:45 05/19/16 08:41 (Theragran M Tab) 1 tab DAILY PO 05/18/16 09:00 05/19/16 08:38 (Pravachol) 80 mg HS PO 05/17/16 21:00 05/19/16 20:53 ([place] 5-325 Mg) 1 tab Q4H PRN PO 05/19/16 13:30 05/20/16 06:02 Vital Signs / I&O Vital Signs Date Time Temp Pulse Resp B/P Pulse Ox O2 Delivery O2 Flow Rate FiO2 05/20/16 07:00 60 05/20/16 07:00 97.9 60 18 114/70 98 05/20/16 06:32 20 05/20/16 06:00 60 05/20/16 05:00 60 05/20/16 04:00 58 05/20/16 03:00 96.4 60 20 112/66 100 05/20/16 03:00 58 05/20/16 02:00 60 05/20/16 01:00 60 05/20/16 00:00 61 05/19/16 23:00 98.0 62 20 114/63 95 05/19/16 23:00 60 05/19/16 22:00 58 05/19/16 21:00 62 05/19/16 20:00 98.0 59 20 121/70 93 05/19/16 20:00 58 05/19/16 19:00 59 05/19/16 15:00 97.9 60 20 115/66 98 05/19/16 11:00 98.7 64 20 116/63 96 I/O 05/19/16 05/19/16 05/19/16 05/20/16 05/20/16 05/20/16 07:00 15:00 23:00 07:00 15:00 23:00 Intake Total 1450 ml 742 ml 492 ml Output Total 600 ml 1400 ml 750 ml Balance 850 ml -658 ml -258 ml Intake Oral 420 ml 480 ml 360 ml IV Total 1030 ml 262 ml 132 ml Output Urine Total 600 ml 1400 ml 750 ml Emesis 0 ml # Bowel Movements 1 0 Physical Exam GENERAL: Well-nourished, well-developed patient. SKIN: Warm and dry. HEAD: Normocephalic. EYES: No scleral icterus. No injection or drainage. NECK: Supple, trachea midline. No JVD or lymphadenopathy. CARDIOVASCULAR: Irr Irr RESPIRATORY: Breath sounds equal bilaterally. No accessory muscle use. GASTROINTESTINAL: Abdomen soft, non-tender, nondistended. EXTREMITIES: No cyanosis, or edema. NEUROLOGICAL: Awake, alert, and oriented x 3. Non-focal. Laboratory Laboratory Tests Test 05/19/16 05/19/16 05/20/16 10:43 12:38 03:30 Activated Partial 55.5 SEC 60.0 SEC Thromboplast Time Hemoglobin 9.8 GM/DL 8.7 GM/DL Hematocrit 29.9 % 26.7 % White Blood Count 12.0 TH/MM3 Red Blood Count 3.05 MIL/MM3 Mean Corpuscular Volume 87.5 FL Mean Corpuscular Hemoglobin 28.6 PG Mean Corpuscular Hemoglobin 32.6 % Concent Red Cell Distribution Width 13.8 % Platelet Count 371 TH/MM3 Mean Platelet Volume 8.6 FL Neutrophils (%) (Auto) 71.8 % Lymphocytes (%) (Auto) 16.2 % Monocytes (%) (Auto) 7.8 % Eosinophils (%) (Auto) 3.5 % Basophils (%) (Auto) 0.7 % Neutrophils # (Auto) 8.6 TH/MM3 Lymphocytes # (Auto) 2.0 TH/MM3 Monocytes # (Auto) 0.9 TH/MM3 Eosinophils # (Auto) 0.4 TH/MM3 Basophils # (Auto) 0.1 TH/MM3 CBC Comment DIFF FINAL Differential Comment Sodium Level 137 MEQ/L Potassium Level 4.5 MEQ/L Chloride Level 103 MEQ/L Carbon Dioxide Level 25.8 MEQ/L Anion Gap 8 MEQ/L Blood Urea Nitrogen 35 MG/DL Creatinine 2.13 MG/DL Estimat Glomerular Filtration 30 ML/MIN Rate Random Glucose 96 MG/DL Calcium Level 8.3 MG/DL Imaging Last Impressions Head CT 05/17/16 0119 Signed Impressions: Service Date/Time: May 02:24 - CONCLUSION: No acute disease. Jayson Lopez Jr., MD Renal Ultrasound 05/17/16 0000 Signed Impressions: Service Date/Time: May 22:43 - CONCLUSION: Unremarkable renal ultrasound except for right renal cyst. Truman Villareal MD Chest X-Ray 05/17/16 0000 Signed Impressions: Service Date/Time: May 03:17 - CONCLUSION: No acute disease. Jayson Lopez Jr., MD Carotid Artery Ultrasound 05/17/16 0000 Signed Impressions: Service Date/Time: May 22:57 - CONCLUSION: No evidence for hemodynamically significant stenosis. Truman Villareal MD Assessment and Plan Problem List: (1) CAD (coronary artery disease) Assessment and Plan: No CV complaints Gross Hematuria Hx of Prostate CA, Bladder CA ASA and Pradaxa on HOLD Creat better today Cont aggressive medical management for CAD. On BB, no ASH with CKD Unfortunately not a candidate for anticoagulation given gross hematuria F/U H&H Dr. Reyes will be back tomorrow. (2) Renal insufficiency (3) Vertigo (4) TIA (transient ischemic attack) Phil Arnold MD May 20, 2016 07:53
[2016-05-20] MEDS: MULTIVITAMINS/MINERALS THERAPEUTIC TAB PO SCH (07:58)
[2016-05-20] MEDS: SODIUM CHLORIDE 0.9% FLUSH 10 ML FLUSH IV FLUSH SCH ×2 (07:59→20:04)
[2016-05-20] MEDS: CARVEDILOL 3.125 MG TAB PO SCH ×2 (07:59→20:02)
[2016-05-20] MEDS: ASPIRIN 81 MG CHEW TAB CHEW SCH (07:59)
[2016-05-20] MEDS: HEPARIN-D5W INJ 250 ML IV SCH (08:30)
--- NOTE | 2016-05-20 10:23 | HHI.PR ---
Subjective Remarks No acute events overnight. AVSS. Currently on CBI as Day would not drain consistently. Patient with no complaints this am. Objective Vitals Vital Signs Date Time Temp Pulse Resp B/P Pulse Ox O2 Delivery O2 Flow Rate FiO2 05/20/16 07:00 60 05/20/16 07:00 97.9 60 18 114/70 98 05/20/16 06:32 20 05/20/16 06:00 60 05/20/16 05:00 60 05/20/16 04:00 58 05/20/16 03:00 96.4 60 20 112/66 100 05/20/16 03:00 58 05/20/16 02:00 60 05/20/16 01:00 60 05/20/16 00:00 61 05/19/16 23:00 98.0 62 20 114/63 95 05/19/16 23:00 60 05/19/16 22:00 58 05/19/16 21:00 62 05/19/16 20:00 98.0 59 20 121/70 93 05/19/16 20:00 58 05/19/16 19:00 59 05/19/16 15:00 97.9 60 20 115/66 98 05/19/16 11:00 98.7 64 20 116/63 96 I/O 05/19/16 05/19/16 05/19/16 05/20/16 05/20/16 05/20/16 07:00 15:00 23:00 07:00 15:00 23:00 Intake Total 1450 ml 742 ml 492 ml Output Total 600 ml 1400 ml 750 ml Balance 850 ml -658 ml -258 ml Intake Oral 420 ml 480 ml 360 ml IV Total 1030 ml 262 ml 132 ml Output Urine Total 600 ml 1400 ml 750 ml Emesis 0 ml # Bowel Movements 1 0 Result Diagram: 05/20/16 0330 05/20/16 033 Objective Remarks GENERAL: This is a well-nourished, obese, well-developed patient, in no apparent distress. SKIN: Bilateral upper extremity ecchymosis or lesions. Cool and dry. HEAD: Atraumatic. Normocephalic. No temporal or scalp tenderness. EYES: Pupils equal round and reactive. Extraocular motions intact. No scleral icterus. No injection or drainage. ENT: Nose without bleeding, purulent drainage or septal hematoma. Throat without erythema, tonsillar hypertrophy or exudate. Uvula midline. Airway patent. NECK: Trachea midline. No JVD or lymphadenopathy. Supple, nontender, no meningeal signs. CARDIOVASCULAR: Irregular rate and rhythm with 2/6 systolic ejection murmur RESPIRATORY: Clear to auscultation. Breath sounds equal bilaterally. No wheezes , rales, or rhonchi. GASTROINTESTINAL: Abdomen soft, obese non-tender, nondistended. No guarding or rebound, normoactive bowel sounds. : Day in place draining red urine. On CBI, MUSCULOSKELETAL: Extremities without clubbing, cyanosis, 2+ edema NEUROLOGICAL: Awake and alert to person place time and situation. Cranial nerves II through XII intact. Motor and sensory grossly within normal limits. Five out of 5 muscle strength in all muscle groups upper extremity and lower extremity. A/P Problem List: (1) Bladder cancer ICD Code: C67.9 Status: Acute (2) Vertigo ICD Code: R42 Status: Acute (3) Acute kidney injury ICD Code: N17.9 Status: Acute (4) CKD (chronic kidney disease), stage III ICD Code: N18.3 Status: Chronic (5) Hematuria ICD Code: R31.9 Status: Acute Assessment and Plan 80-year-old white male presents to the emergency room with acute onset of dizziness with a recent diagnosis of bladder cancer and status post hematuria from cystoscope and has been holding his home aspirin and Pradaxa. Dizziness thought 2/2 BPPV. Acute TIA with a history of chronic atrial fibrillation IMAGING: CT of the brain is negative however cannot obtain MRI of the brain due to history of AICD pacemaker; carotid ultrasound which was negative; 2-D echo reviewed as patient has a history of chronic ischemic cardiomyopathy with EF of 25-30%. Neurology felt that this episode was more of a vertigo versus acute TIA. Due to CHADS score 3 with a history of cardiomyopathy/ CHF, age, chronic atrial fibrillation, patient is extremely high risk for TIA. Given his persistent bladder bleeding, patient not a candidate for anticoagulation at this time. Anemia -Likely 2/2 blood loss from bladder -Hgb 11.6-11.1-9.8-8.6 today -Can not dc to home until hgb stabilized -Continue to follow -Transfuse as needed Recent diagnosis bladder cancer status post cystoscopy with hematuria. Home dose Pradaxa initially held, patient recently resumed on heparin. Will hold heparin at this time given Hgb of 8.6. - [place] prn pain appreciate urologist consult due to continued hematuria status post Day placement. -continued Day upon discharge to home with home health care -follow-up with urology. -Continue CBI Risk and benefits of anticoagulation with his hematuria has been evaluated and discussed thoroughly with the patient today. Elevated troponin Ilikely due to acute kidney injury superimposed on chronic kidney disease stage III. No further workup per cardiology Acute kidney injury superimposed on chronic kidney disease stage III; possible secondary to cardiorenal syndrome versus UTI. GFR improving from admission 21-> 30. -Appreciate nephrology recommendations no obstruction or renal ultrasound -Avoid nephrotoxic meds Hyperlipidemia resume home statin Pravastatin 80 mg by mouth at bedtime History of chronic atrial fibrillation status post AICD and pacemaker Coreg 3.125 mg by mouth every 12 hours started by cardiology DVT prophylaxisSCDs 2/2 bleed Diet: Heart healthy IV fluids: Hep-Lock IV fluids Discharge Planning Home with home health care, likely 12 days pending no further Hg trending downward Gris Herrera MD R3 May 20, 2016 10:22
--- NOTE | 2016-05-20 10:26 | HHI.NPPN ---
Subjective General Problems: Anemia, Heart Disease, Hypertension Renal Failure: Chronic, Acute, Stage III History of Present Illness 80-year-old male with past medical history of Ischemic heart disease, atrial fibrillation, hyperlipidemia, congestive heart failure, history of renal stone prostate cancer and chronic kidney disease, came to the hospital with complaint of dizziness and near syncope. I was called to see the patient because of elevated BUN and creatinine patient has history of chronic kidney disease and seems like the baseline creatinine has been around 1.5-1.9. Additional Remarks No acute complaints had gabriel changed, ongoing hematuria with bladder irrigation now Review of Systems General Constitutional: Fatigue Objective Data Data 05/19/16 05/20/16 19:00 07:00 Intake Total 742 ml 492 ml Output Total 1400 ml 750 ml Balance -658 ml -258 ml Intake Oral 480 ml 360 ml IV Total 262 ml 132 ml Output Urine Total 1400 ml 750 ml Emesis 0 ml # Bowel Movements 1 0 Vital Signs Date Time Temp Pulse Resp B/P Pulse Ox O2 Delivery O2 Flow Rate FiO2 05/20/16 07:00 60 05/20/16 07:00 97.9 60 18 114/70 98 05/20/16 06:32 20 05/20/16 06:00 60 05/20/16 05:00 60 05/20/16 04:00 58 05/20/16 03:00 96.4 60 20 112/66 100 05/20/16 03:00 58 05/20/16 02:00 60 05/20/16 01:00 60 05/20/16 00:00 61 05/19/16 23:00 98.0 62 20 114/63 95 05/19/16 23:00 60 05/19/16 22:00 58 05/19/16 21:00 62 05/19/16 20:00 98.0 59 20 121/70 93 05/19/16 20:00 58 05/19/16 19:00 59 05/19/16 15:00 97.9 60 20 115/66 98 05/19/16 11:00 98.7 64 20 116/63 96 -: 05/20/16 0330 05/20/16 0330 Physical Exam General Appearance: No Acute Distress, Comfortable Eyes Eye Exam: Pupils Equal Throat Throat Exam: Oral Mucosa [place] & Moist Pulmonary Resp Exam: Breath Sounds Equal, No Distress, Decreased Bases Cardiology CV Exam: Regular, Normal Sinus Rhythm Gastrointestinal/Abdomen GI Exam: Soft, Non-Tender, Bowel Sounds Present Extremeties Extremities Exam: Trace Edema Neurologic Neuro Exam: Alert, Awake, Oriented Psychiatric Psych Exam: Appropriate Responses Assessment/Plan Assessment Summary: JENNIFER/Acute Renal Failure, Hypertension, CKD Stage III Problem List: (1) Bladder mass (2) Obstructive uropathy (3) Non-STEMI (non-ST elevated myocardial infarction) (4) Hematuria (5) CKD (chronic kidney disease), stage III (6) Acute kidney injury (7) TIA (transient ischemic attack) Plan His baseline Creatinine is close to 1.5-1.9. JENNIFER with possible cardiorenal syndrome vs UTI. Admitted with TIA Creatinine improving (2.8 -> 2.3-> 2.1 today) 2.1L UOP, with gabriel change and bladder irrigation now. Bladder cancer and hematuria Creatinine is improving - continue to monitor Urine culture pending Avoid Nephrotoxins. Continue to follow with cardiology, Eduard Keita MD May 20, 2016 10:26
--- NOTE | 2016-05-20 11:13 | HHI.PR ---
Subjective Patient symptoms today Gabriel catheter switched out to three-way unit and CBI implemented last night for worsening hematuria with clots. Heparin DC'd yesterday. Presently complains of sporadic bladder spasms. Reports catheter has been draining well with the CBI. Objective Vital Signs Vital Signs Date Time Temp Pulse Resp B/P Pulse Ox O2 Delivery O2 Flow Rate FiO2 05/20/16 07:00 60 05/20/16 07:00 97.9 60 18 114/70 98 05/20/16 06:32 20 05/20/16 06:00 60 05/20/16 05:00 60 05/20/16 04:00 58 05/20/16 03:00 96.4 60 20 112/66 100 05/20/16 03:00 58 05/20/16 02:00 60 05/20/16 01:00 60 05/20/16 00:00 61 05/19/16 23:00 98.0 62 20 114/63 95 05/19/16 23:00 60 05/19/16 22:00 58 05/19/16 21:00 62 05/19/16 20:00 98.0 59 20 121/70 93 05/19/16 20:00 58 05/19/16 19:00 59 05/19/16 15:00 97.9 60 20 115/66 98 Result Diagram: 05/20/1632905/20/16329 Objective Remarks Three-way Gabriel catheter in place with moderate inflow and light red output. Bladder not distended. Medications and IVs Current Medications Medications (Trade) Dose Ordered Sig/Brianne Route Start Time Stop Time Status Last Admin (Zofran Inj) 4 mg Q8HR PRN IV PUSH 05/17/16 04:30 (Tylenol) 650 mg Q4H PRN PO 05/17/16 04:30 05/19/16 02:28 (Coreg) 3.125 mg Q12HR PO 05/17/16 09:00 05/20/16 07:59 (NS Flush) 2 ml BID IV FLUSH 05/17/16 21:00 05/19/16 20:53 (NS Flush) 2 ml UNSCH PRN IV FLUSH 05/17/16 12:30 (D50w (Vial) Inj) 25 ml UNSCH PRN IV PUSH 05/17/16 12:30 (Glucagon Inj) 1 mg UNSCH PRN OTHER 05/17/16 12:30 (Aspirin Chew) 81 mg DAILY CHEW 05/18/16 09:00 05/20/16 07:59 (Theragran M Tab) 1 tab DAILY PO 05/18/16 09:00 05/20/16 07:58 (Pravachol) 80 mg HS PO 05/17/16 21:00 05/19/16 20:53 ([place] 5-325 Mg) 1 tab Q4H PRN PO 05/19/16 13:30 05/20/16 09:53 Assessment and Plan Problem List: (1) Hematuria ICD Code: R31.9 Status: Acute (2) Acute kidney injury ICD Code: N17.9 Status: Acute (3) Bladder cancer ICD Code: C67.9 Status: Acute Assessment and Plan -Renal U/S negative for hydronephrosis. Creatinine improving. No acute intervention needed at this time. Likely ATN. -Hgb stable. -continue Gabriel catheter. Hematuria expected due to blood thinners following TURBT. If catheter stops draining, recommend changing to large (22Fr) 3 way gabriel and starting CBI. Otherwise, home with gabriel. Will void trial as outpatient. 05/19/2016 Status post replacement of occluded 16 [place] catheter with a 20 Bur[place]an unit with improved drainage. Irrigate Gabriel with sterile water when necessary. Further urologic management as previously outlined by patient's established urologist . 05/20/2016 Worsening hematuria yesterday necessitating placement of a 3 way Gabriel and implantation of CBI. Continues to have hematuria today and also complains of bladder spasms Will continue with CBI And tolterodine for bladder spasms Continue to hold heparin until the hematuria resolves Monitor hematocrit Adonis Marx MD May 20, 2016 11:13
[2016-05-20] MEDS: TOLTERODINE TARTRATE 4 MG CAP LA PO SCH (11:38)
[2016-05-20] MEDS: PRAVASTATIN SOD 80 MG TAB PO SCH (20:03)
[2016-05-21] VITALS (8 sets, daily range): BP systolic 122–131; BP diastolic 56–63; PULSE 59–71; RESP 18–20; TEMP 97.7–98.9; O2SAT 93–98
[2016-05-21] MEDS: INSULIN ASPART SUPPLEMENTAL SCALE SQ SCH ×4 (05:20→20:12)
[2016-05-21 07:20] LABS: AUTOMATED NEUTROPHIL # 10.4 TH/MM3 (1.8-7.7); BASOPHIL # 0.1 TH/MM3 (0-0.2); BASOPHIL % 0.7 % (0.0-2.0); EOSINOPHIL # 0.5 TH/MM3 (0-0.4); EOSINOPHIL % 3.7 % (0.0-4.0); HEMATOCRIT 24.9 % (39.0-51.0); HEMO FLAGS DIFF FINAL; LYMPH % 11.7 % (9.0-44.0); LYMPHOCYTE # 1.6 TH/MM3 (1.0-4.8); MEAN CELL VOLUME 87.1 FL (80.0-100.0); MEAN CORPUSCULAR HEMOGLOBIN 28.4 PG (27.0-34.0); MEAN CORPUSCULAR HGB CONC 32.7 % (32.0-36.0); MONO % 7.7 % (0.0-8.0); NEUT % 76.2 % (16.0-70.0); PLATELET COUNT 400 TH/MM3 (150-450); RED BLOOD COUNT 2.86 MIL/MM3 (4.50-5.90); RED CELL DISTRIBUTION WIDTH 13.9 % (11.6-17.2); WHITE BLOOD COUNT 13.7 TH/MM3 (4.0-11.0)
[2016-05-21 07:23] LABS: APTT (PATIENT) 30.6 SEC (24.3-30.1)
[2016-05-21 07:48] LABS: BICARBONATE 24.9 MEQ/L (21.0-32.0); POTASSIUM 4.3 MEQ/L (3.5-5.1)
[2016-05-21] MEDS: MULTIVITAMINS/MINERALS THERAPEUTIC TAB PO SCH (08:52)
[2016-05-21] MEDS: CARVEDILOL 3.125 MG TAB PO SCH ×2 (08:52→20:11)
[2016-05-21] MEDS: ASPIRIN 81 MG CHEW TAB CHEW SCH (08:52)
[2016-05-21] MEDS: SODIUM CHLORIDE 0.9% FLUSH 10 ML FLUSH IV FLUSH SCH ×2 (08:54→20:11)
[2016-05-21] MEDS: TOLTERODINE TARTRATE 4 MG CAP LA PO SCH (09:00)
--- NOTE | 2016-05-21 11:54 | HHI.PR ---
Subjective Remarks Follow-up non-ST elevation [place]/TIA/bladder cancer with gross hematuria/acute renal failure 05/21/16-patient seen and examined, Day with still hematuria however per patient's son there has been some improvement in the past 24 hours. Denies any shortness of breath Objective Vitals Vital Signs Date Time Temp Pulse Resp B/P Pulse Ox O2 Delivery O2 Flow Rate FiO2 05/21/16 08:00 98.5 60 20 130/60 96 05/21/16 04:00 97.7 63 18 122/56 93 05/21/16 04:00 Room Air 05/21/16 00:58 71 05/21/16 00:45 Room Air 05/21/16 00:45 98.9 61 18 131/58 96 05/20/16 23:00 60 05/20/16 22:00 57 05/20/16 21:00 59 05/20/16 20:00 98.2 60 20 111/69 96 05/20/16 20:00 60 05/20/16 15:00 98.7 60 20 130/63 95 I/O 05/20/16 05/20/16 05/20/16 05/21/16 05/21/16 05/21/16 07:00 15:00 23:00 07:00 15:00 23:00 Intake Total 492 ml 840 ml 240 ml Output Total 750 ml 850 ml 950 ml Balance -258 ml -10 ml -710 ml Intake Oral 360 ml 840 ml 240 ml IV Total 132 ml Output Urine Total 750 ml 850 ml 950 ml Emesis 0 ml # Bowel Movements 0 0 Result Diagram: 05/21/16 0614 05/21/16 0614 Imaging Last Impressions Head CT 05/17/16 0119 Signed Impressions: Service Date/Time: May 02:24 - CONCLUSION: No acute disease. Jayson Lopez Jr., MD Renal Ultrasound 05/17/16 0000 Signed Impressions: Service Date/Time: May 22:43 - CONCLUSION: Unremarkable renal ultrasound except for right renal cyst. Truman Villareal MD Chest X-Ray 05/17/16 0000 Signed Impressions: Service Date/Time: May 03:17 - CONCLUSION: No acute disease. Jayson Lopez Jr., MD Carotid Artery Ultrasound 05/17/16 0000 Signed Impressions: Service Date/Time: May 22:57 - CONCLUSION: No evidence for hemodynamically significant stenosis. Truman Villareal MD Objective Remarks GENERAL: NAD SKIN: Warm and dry. HEAD: Normocephalic. EYES: No scleral icterus. No injection or drainage. NECK: Supple, trachea midline. No JVD or lymphadenopathy. CARDIOVASCULAR: Regular rate and rhythm without murmurs, gallops, or rubs. RESPIRATORY: Breath sounds equal bilaterally. No accessory muscle use. GASTROINTESTINAL: Abdomen soft, non-tender, nondistended. MUSCULOSKELETAL: No cyanosis, or edema. : Day in place with evidence of gross hematuria BACK: Nontender without obvious deformity. No CVA tenderness. A/P Problem List: (1) Bladder cancer ICD Code: C67.9 Status: Acute (2) Vertigo ICD Code: R42 Status: Acute (3) Acute kidney injury ICD Code: N17.9 Status: Acute (4) CKD (chronic kidney disease), stage III ICD Code: N18.3 Status: Chronic (5) Hematuria ICD Code: R31.9 Status: Acute Assessment and Plan 80-year-old man with Acute TIA with a history of chronic atrial fibrillation CT of the brain is negative however cannot obtain MRI of the brain due to history of AICD pacemaker; carotid ultrasound which was negative; 2-D echo with EF of 25-30%. Neurology is following however this is more likely vertigo versus acute TIA. PT to treat and eval Secondary to patient is not a candidate for anticoagulation at this time Anemia: Secondary to acute blood loss from bladder cancer Continue to monitor H&H and transfuse for hemoglobin less than 8 Bladder cancer status post cystoscopy with hematuria. Continue CBI Currently on Tolterodine 2/2 Bladder spasm Appreciate input from urology Monitor H&H Continue to hold oral anticoagulation Non-ST elevation [place] Appreciate input from cardiology Elevated troponin Ilikely due to acute kidney injury superimposed on chronic kidney disease stage III. No further workup Acute kidney injury superimposed on chronic kidney disease stage III Renal indices improving with IV fluid hydration Appreciate input from nephrology Avoid all nephrotoxic drugs and monitor BUN and creatinine Hyperlipidemia Continue Pravastatin 80 mg by mouth at bedtime History of chronic atrial fibrillation status post AICD and pacemaker Coreg 3.125 mg by mouth every 12 hours started by cardiology OAC contraindicated at this time 2/2 gross hematuria DVT prophylaxis: Bilateral SCDs Jimbo Ndiaye MD May 21, 2016 11:53
--- NOTE | 2016-05-21 12:50 | HHI.PR ---
Subjective Patient symptoms today doing better. gabriel draining with CBI. Denies CP/SOB. Objective Vital Signs Vital Signs Date Time Temp Pulse Resp B/P Pulse Ox O2 Delivery O2 Flow Rate FiO2 05/21/16 12:00 98.5 60 18 123/60 94 05/21/16 08:00 98.5 60 20 130/60 96 05/21/16 04:00 97.7 63 18 122/56 93 05/21/16 04:00 Room Air 05/21/16 00:58 71 05/21/16 00:45 Room Air 05/21/16 00:45 98.9 61 18 131/58 96 05/20/16 23:00 60 05/20/16 22:00 57 05/20/16 21:00 59 05/20/16 20:00 98.2 60 20 111/69 96 05/20/16 20:00 60 05/20/16 15:00 98.7 60 20 130/63 95 Intake & Output 05/21/16 05/21/16 07:00 19:00 Intake Total 240 ml Output Total 950 ml Balance -710 ml Intake Oral 240 ml Output Urine Total 950 ml # Bowel Movements 0 Result Diagram: 05/21/1661305/21/16613 Objective Remarks NAD. A/O x 3 Three-way Gabriel catheter in place with moderate inflow and light red output. Bladder not distended. Medications and IVs Current Medications Medications (Trade) Dose Ordered Sig/Brianne Route Start Time Stop Time Status Last Admin (Zofran Inj) 4 mg Q8HR PRN IV PUSH 05/17/16 04:30 (Tylenol) 650 mg Q4H PRN PO 05/17/16 04:30 05/19/16 02:28 (Coreg) 3.125 mg Q12HR PO 05/17/16 09:00 05/21/16 08:52 (NS Flush) 2 ml BID IV FLUSH 05/17/16 21:00 05/21/16 08:54 (NS Flush) 2 ml UNSCH PRN IV FLUSH 05/17/16 12:30 (D50w (Vial) Inj) 25 ml UNSCH PRN IV PUSH 05/17/16 12:30 (Glucagon Inj) 1 mg UNSCH PRN OTHER 05/17/16 12:30 (Aspirin Chew) 81 mg DAILY CHEW 05/18/16 09:00 05/21/16 08:52 (Theragran M Tab) 1 tab DAILY PO 05/18/16 09:00 05/21/16 08:52 (Pravachol) 80 mg HS PO 05/17/16 21:00 05/20/16 20:03 ([place] 5-325 Mg) 1 tab Q4H PRN PO 05/19/16 13:30 05/20/16 20:03 ([place]) 4 mg DAILY PO 05/20/16 11:15 05/21/16 09:00 Assessment and Plan Problem List: (1) Hematuria ICD Code: R31.9 Status: Acute (2) Acute kidney injury ICD Code: N17.9 Status: Acute (3) Bladder cancer ICD Code: C67.9 Status: Acute Assessment and Plan -Renal U/S negative for hydronephrosis. Creatinine improving. No acute intervention needed at this time. Likely ATN. -Hgb stable. -continue Gabriel catheter. Hematuria expected due to blood thinners following TURBT. If catheter stops draining, recommend changing to large (22Fr) 3 way gabriel and starting CBI. Otherwise, home with gabriel. Will void trial as outpatient. 05/19/2016 Status post replacement of occluded 16 [place] catheter with a 20 [place]ese unit with improved drainage. Irrigate Gabriel with sterile water when necessary. Further urologic management as previously outlined by patient's established urologist . 05/20/2016 Worsening hematuria yesterday necessitating placement of a 3 way Gabriel and implantation of CBI. Continues to have hematuria today and also complains of bladder spasms Will continue with CBI And tolterodine for bladder spasms Continue to hold heparin until the hematuria resolves Monitor hematocrit 05/21/2016 Conservative management. Wean CBI. Follow H/H. Transfuse if less than 8 or becomes symptomatic. Anticoagulation on hold. Creatinine improving. Appreciate other service input. d/w daughter, Ying. Porfirio Grubbs MD May 21, 2016 12:50
--- NOTE | 2016-05-21 16:08 | HHI.NPPN ---
Subjective General Problems: Anemia, Heart Disease, Hypertension Renal Failure: Chronic, Acute, Stage III History of Present Illness 80-year-old male with past medical history of Ischemic heart disease, atrial fibrillation, hyperlipidemia, congestive heart failure, history of renal stone prostate cancer and chronic kidney disease, came to the hospital with complaint of dizziness and near syncope. I was called to see the patient because of elevated BUN and creatinine patient has history of chronic kidney disease and seems like the baseline creatinine has been around 1.5-1.9. Additional Remarks Patient is alert, still has hematuria, improving. Review of Systems General Constitutional: Fatigue Objective Data Data 05/20/16 05/21/16 19:00 07:00 Intake Total 840 ml 240 ml Output Total 850 ml 950 ml Balance -10 ml -710 ml Intake Oral 840 ml 240 ml Output Urine Total 850 ml 950 ml # Bowel Movements 0 Vital Signs Date Time Temp Pulse Resp B/P Pulse Ox O2 Delivery O2 Flow Rate FiO2 05/21/16 12:00 98.5 60 18 123/60 94 05/21/16 09:00 94 Room Air 05/21/16 09:00 59 05/21/16 08:00 98.5 60 20 130/60 96 05/21/16 04:00 97.7 63 18 122/56 93 05/21/16 04:00 Room Air 05/21/16 00:58 71 05/21/16 00:45 Room Air 05/21/16 00:45 98.9 61 18 131/58 96 05/20/16 23:00 60 05/20/16 22:00 57 05/20/16 21:00 59 05/20/16 20:00 98.2 60 20 111/69 96 05/20/16 20:00 60 -: 05/21/16 0614 05/21/16 0614 Physical Exam General Appearance: No Acute Distress, Comfortable Eyes Eye Exam: Pupils Equal Throat Throat Exam: Oral Mucosa [place] & Moist Pulmonary Resp Exam: Breath Sounds Equal, No Distress, Decreased Bases Cardiology CV Exam: Regular, Normal Sinus Rhythm Gastrointestinal/Abdomen GI Exam: Soft, Non-Tender, Bowel Sounds Present Extremeties Extremities Exam: Trace Edema Neurologic Neuro Exam: Alert, Awake, Oriented Psychiatric Psych Exam: Appropriate Responses Assessment/Plan Assessment Summary: JENNIFER/Acute Renal Failure, Hypertension, CKD Stage III Problem List: (1) Bladder mass (2) Obstructive uropathy (3) Non-STEMI (non-ST elevated myocardial infarction) (4) Hematuria (5) CKD (chronic kidney disease), stage III (6) Acute kidney injury (7) TIA (transient ischemic attack) Plan His baseline Creatinine is close to 1.5-1.9. JENNIFER with possible cardiorenal syndrome vs UTI. Admitted with TIA Creatinine improving slowly. Bladder cancer and hematuria Creatinine is improving - continue to monitor Urine culture pending Avoid Nephrotoxins. Urology follow up noted. Jasson Tipton MD May 21, 2016 16:08
[2016-05-21] MEDS: PRAVASTATIN SOD 80 MG TAB PO SCH (20:11)
[2016-05-21] MEDS: ACETAMINOPHEN/HYDROcodone 325 MG/5 MG TAB PO PRN (22:32)
[2016-05-22] VITALS (7 sets, daily range): BP systolic 125–179; BP diastolic 58–84; PULSE 59–65; RESP 16–19; TEMP 97.5–98.9; O2SAT 93–97
[2016-05-22] MEDS: ACETAMINOPHEN/HYDROcodone 325 MG/5 MG TAB PO PRN ×2 (05:43→09:02)
[2016-05-22] MEDS: INSULIN ASPART SUPPLEMENTAL SCALE SQ SCH ×4 (06:44→21:30)
--- NOTE | 2016-05-22 08:25 | HHI.PR ---
Subjective Remarks Follow-up non-ST elevation ME/TIA/bladder cancer with gross hematuria/acute renal failure 05/21/16-patient seen and examined, Day with still hematuria however per patient's son there has been some improvement in the past 24 hours. Denies any shortness of breath 05/22/16-patient seen and examined. Denies any shortness of breath. No acute event overnight. Currently afebrile. Objective Vitals Vital Signs Date Time Temp Pulse Resp B/P Pulse Ox O2 Delivery O2 Flow Rate FiO2 05/22/16 07:34 98.3 65 16 138/73 95 05/22/16 05:05 98.4 59 18 131/66 95 05/22/16 00:05 98.3 60 18 125/62 95 05/21/16 21:23 98.0 60 18 131/63 94 05/21/16 21:00 Room Air 05/21/16 16:00 98.1 60 18 127/61 98 05/21/16 12:00 98.5 60 18 123/60 94 05/21/16 09:00 94 Room Air 05/21/16 09:00 59 I/O 05/21/16 05/21/16 05/21/16 05/22/16 05/22/16 05/22/16 07:00 15:00 23:00 07:00 15:00 23:00 Intake Total 240 ml 720 ml 300 ml 240 ml Output Total 950 ml 400 ml 2080 ml 400 ml Balance -710 ml 320 ml -1780 ml -160 ml Intake Oral 240 ml 720 ml 240 ml Other 300 ml Output Urine Total 950 ml 400 ml 2080 ml 400 ml Stool Total 0 ml # Bowel Movements 0 0 Result Diagram: 05/21/16 0614 05/21/16613 Objective Remarks GENERAL: NAD SKIN: Warm and dry. HEAD: Normocephalic. EYES: No scleral icterus. No injection or drainage. NECK: Supple, trachea midline. No JVD or lymphadenopathy. CARDIOVASCULAR: Regular rate and rhythm without murmurs, gallops, or rubs. RESPIRATORY: Breath sounds equal bilaterally. No accessory muscle use. GASTROINTESTINAL: Abdomen soft, non-tender, nondistended. MUSCULOSKELETAL: No cyanosis, or edema. : Day in place with evidence of gross hematuria BACK: Nontender without obvious deformity. No CVA tenderness. A/P Problem List: (1) Bladder cancer ICD Code: C67.9 Status: Acute (2) Vertigo ICD Code: R42 Status: Acute (3) Acute kidney injury ICD Code: N17.9 Status: Acute (4) CKD (chronic kidney disease), stage III ICD Code: N18.3 Status: Chronic (5) Hematuria ICD Code: R31.9 Status: Acute Assessment and Plan 80-year-old man with Acute TIA with a history of chronic atrial fibrillation CT of the brain is negative however cannot obtain MRI of the brain due to history of AICD pacemaker; carotid ultrasound which was negative; 2-D echo with EF of 25-30%. Neurology is following however this is more likely vertigo versus acute TIA. PT to treat and eval Secondary to patient is not a candidate for anticoagulation at this time Anemia: Secondary to acute blood loss from bladder cancer Continue to monitor H&H and transfuse for hemoglobin less than 8 CBC pending Bladder cancer status post cystoscopy with hematuria. Wean CBI Currently on Tolterodine 2/2 Bladder spasm Appreciate input from urology Monitor H&H. Monitor CBC Continue to hold oral anticoagulation Non-ST elevation ME Appreciate input from cardiology Elevated troponin [facility] due to acute kidney injury superimposed on chronic kidney disease stage III. No further workup Acute kidney injury superimposed on chronic kidney disease stage III Renal indices improving with IV fluid hydration Appreciate input from nephrology Avoid all nephrotoxic drugs and monitor BUN and creatinine-BMP pending Hyperlipidemia Continue Pravastatin 80 mg by mouth at bedtime History of chronic atrial fibrillation status post AICD and pacemaker Coreg 3.125 mg by mouth every 12 hours started by cardiology OAC contraindicated at this time 2/2 gross hematuria DVT prophylaxis: Bilateral SCDs Jimbo Ndiaye MD May 22, 2016 08:25
--- NOTE | 2016-05-22 08:47 | PD.CARD.PN ---
Subjective Subjective Remarks PT c/o urinary pain, no cardiac complaints Objective Medications Current Medications Medications (Trade) Dose Ordered Sig/Brianne Route Start Time Stop Time Status Last Admin (Zofran Inj) 4 mg Q8HR PRN IV PUSH 05/17/16 04:30 (Tylenol) 650 mg Q4H PRN PO 05/17/16 04:30 05/19/16 02:28 (Coreg) 3.125 mg Q12HR PO 05/17/16 09:00 05/21/16 20:11 (NS Flush) 2 ml BID IV FLUSH 05/17/16 21:00 05/21/16 20:11 (NS Flush) 2 ml UNSCH PRN IV FLUSH 05/17/16 12:30 (D50w (Vial) Inj) 25 ml UNSCH PRN IV PUSH 05/17/16 12:30 (Glucagon Inj) 1 mg UNSCH PRN OTHER 05/17/16 12:30 (Aspirin Chew) 81 mg DAILY CHEW 05/18/16 09:00 05/21/16 08:52 (Theragran M Tab) 1 tab DAILY PO 05/18/16 09:00 05/21/16 08:52 (Pravachol) 80 mg HS PO 05/17/16 21:00 05/21/16 20:11 ([place] 5-325 Mg) 1 tab Q4H PRN PO 05/19/16 13:30 05/22/16 05:43 ([place]) 4 mg DAILY PO 05/20/16 11:15 05/21/16 09:00 Vital Signs / I&O Vital Signs Date Time Temp Pulse Resp B/P Pulse Ox O2 Delivery O2 Flow Rate FiO2 05/22/16 07:34 98.3 65 16 138/73 95 05/22/16 05:05 98.4 59 18 131/66 95 05/22/16 00:05 98.3 60 18 125/62 95 05/21/16 21:23 98.0 60 18 131/63 94 05/21/16 21:00 Room Air 05/21/16 16:00 98.1 60 18 127/61 98 05/21/16 12:00 98.5 60 18 123/60 94 05/21/16 09:00 94 Room Air 05/21/16 09:00 59 I/O 405/21/16 05/21/16 05/22/16 05/22/16 05/22/16 07:00 15:00 23:00 07:00 15:00 23:00 Intake Total 240 ml 720 ml 300 ml 240 ml Output Total 950 ml 400 ml 2080 ml 400 ml Balance -710 ml 320 ml -1780 ml -160 ml Intake Oral 240 ml 720 ml 240 ml Other 300 ml Output Urine Total 950 ml 400 ml 2080 ml 400 ml Stool Total 0 ml # Bowel Movements 0 0 Physical Exam GENERAL: Well developed, well nourished. No acute distress. HEENT: Jugular venous pressure is normal. CHEST: Lungs clear to auscultation bilaterally. Unlabored respiratory effort. CARDIAC: Regular rate and rhythm without S3, S4, or murmur. ABDOMEN: Soft, nontender. Bowel sounds present. EXTREMITIES: No clubbing, cyanosis, 1+ edema. Assessment and Plan Problem List: (1) Renal insufficiency (2) Vertigo (3) TIA (transient ischemic attack) Assessment and Plan Acute on chronic systolic heart failure - ECHO EF 25%, comparable to last at 30% -enzymes felt elevated secondary to CHF and Cr>2 -on BB, no ASH with CKD -appreciate renal input and fluid management Ischemic cardiomyopathy - stable Renal Insufficiency- per renal Atrial fibrillation- s/p ablation, no anticoagulation with hematuria Dizziness/possible TIA- pt was on supra-therapeutic pradaxa dose at the time María Reyes MD May 22, 2016 08:46
[2016-05-22] MEDS: ASPIRIN 81 MG CHEW TAB CHEW SCH (09:23)
[2016-05-22] MEDS: CARVEDILOL 3.125 MG TAB PO SCH ×2 (09:23→21:31)
[2016-05-22] MEDS: MULTIVITAMINS/MINERALS THERAPEUTIC TAB PO SCH (09:23)
[2016-05-22] MEDS: SODIUM CHLORIDE 0.9% FLUSH 10 ML FLUSH IV FLUSH SCH ×2 (09:24→21:31)
[2016-05-22] MEDS: TOLTERODINE TARTRATE 4 MG CAP LA PO SCH (09:24)
[2016-05-22 10:31] LABS: AUTOMATED NEUTROPHIL # 9.8 TH/MM3 (1.8-7.7); BASOPHIL # 0.1 TH/MM3 (0-0.2); BASOPHIL % 0.8 % (0.0-2.0); EOSINOPHIL # 0.5 TH/MM3 (0-0.4); EOSINOPHIL % 3.7 % (0.0-4.0); HEMATOCRIT 25.2 % (39.0-51.0); HEMO FLAGS DIFF FINAL; LYMPH % 17.9 % (9.0-44.0); LYMPHOCYTE # 2.5 TH/MM3 (1.0-4.8); MEAN CORPUSCULAR HEMOGLOBIN 28.8 PG (27.0-34.0); MEAN CORPUSCULAR HGB CONC 33.1 % (32.0-36.0); MONO % 8.4 % (0.0-8.0); NEUT % 69.2 % (16.0-70.0); PLATELET COUNT 440 TH/MM3 (150-450); RED CELL DISTRIBUTION WIDTH 14.1 % (11.6-17.2); WHITE BLOOD COUNT 14.2 TH/MM3 (4.0-11.0)
[2016-05-22 10:44] LABS: POTASSIUM 4.6 MEQ/L (3.5-5.1)
[2016-05-22] MEDS ORDERED: BELLADONNA ALKALOIDS/OPIUM 60 MG SUPP RECTAL PRN (11:00)
--- NOTE | 2016-05-22 12:31 | HHI.PR ---
Subjective Patient symptoms today catheter has been intermittently clotting off since last night. Having bladder spasms. Denies CP/SOB/Fevers. Objective Vital Signs Vital Signs Date Time Temp Pulse Resp B/P Pulse Ox O2 Delivery O2 Flow Rate FiO2 05/22/16 11:24 98.2 62 18 179/84 93 05/22/16 07:34 98.3 65 16 138/73 95 05/22/16 05:05 98.4 59 18 131/66 95 05/22/16 00:05 98.3 60 18 125/62 95 05/21/16 21:23 98.0 60 18 131/63 94 05/21/16 21:00 Room Air 05/21/16 16:00 98.1 60 18 127/61 98 Intake & Output 05/22/16 05/22/16 07:00 19:00 Intake Total 540 ml Output Total 2480 ml Balance -1940 ml Intake Oral 240 ml Other 300 ml Output Urine Total 2480 ml Stool Total 0 ml Result Diagram: 05/22/1684205/22/1643 Objective Remarks NAD. A/O x 3 Three-way Gabriel catheter in place with moderate inflow and light red output. Bladder not distended. Medications and IVs Current Medications Medications (Trade) Dose Ordered Sig/Brianne Route Start Time Stop Time Status Last Admin (Zofran Inj) 4 mg Q8HR PRN IV PUSH 05/17/16 04:30 (Tylenol) 650 mg Q4H PRN PO 05/17/16 04:30 05/19/16 02:28 (Coreg) 3.125 mg Q12HR PO 05/17/16 09:00 05/22/16 09:23 (NS Flush) 2 ml BID IV FLUSH 05/17/16 21:00 05/22/16 09:24 (NS Flush) 2 ml UNSCH PRN IV FLUSH 05/17/16 12:30 (D50w (Vial) Inj) 25 ml UNSCH PRN IV PUSH 05/17/16 12:30 (Glucagon Inj) 1 mg UNSCH PRN OTHER 05/17/16 12:30 (Aspirin Chew) 81 mg DAILY CHEW 05/18/16 09:00 05/22/16 09:23 (Theragran M Tab) 1 tab DAILY PO 05/18/16 09:00 05/22/16 09:23 (Pravachol) 80 mg HS PO 05/17/16 21:00 05/21/16 20:11 ([place] 5-325 Mg) 1 tab Q4H PRN PO 05/19/16 13:30 05/22/16 09:02 (B & O Supp) 60 mg Q6HR PRN RECTAL 05/22/16 11:00 Assessment and Plan Problem List: (1) Hematuria ICD Code: R31.9 Status: Acute (2) Acute kidney injury ICD Code: N17.9 Status: Acute (3) Bladder cancer ICD Code: C67.9 Status: Acute Assessment and Plan -Renal U/S negative for hydronephrosis. Creatinine improving. No acute intervention needed at this time. Likely ATN. -Hgb stable. -continue Gabriel catheter. Hematuria expected due to blood thinners following TURBT. If catheter stops draining, recommend changing to large (22Fr) 3 way gabriel and starting CBI. Otherwise, home with gabriel. Will void trial as outpatient. 05/19/2016 Status post replacement of occluded 16 Italian catheter with a 20 Italian unit with improved drainage. Irrigate Gabriel with sterile water when necessary. Further urologic management as previously outlined by patient's established urologist . 05/20/2016 Worsening hematuria yesterday necessitating placement of a 3 way Gabriel and implantation of CBI. Continues to have hematuria today and also complains of bladder spasms Will continue with CBI And tolterodine for bladder spasms Continue to hold heparin until the hematuria resolves Monitor hematocrit 05/21/2016 Conservative management. Wean CBI. Follow H/H. Transfuse if less than 8 or becomes symptomatic. Anticoagulation on hold. Creatinine improving. Appreciate other service input. d/w daughterYing. 05/22/2016 Gabriel catheter successfully irrigated for large amount of clots. Draining crystal clear urine with moderate CBI. Wean CBI to clear. If it continues to clot off over next 24 hours, will need to go to OR. Hgb stable. Creatinine improving. D/C tolterodine. B&O suppositories for bladder spasms. D/w patient, son. Porfirio Grubbs MD May 22, 2016 12:31
--- NOTE | 2016-05-22 16:51 | HHI.NPPN ---
Subjective General Problems: Anemia, Heart Disease, Hypertension Renal Failure: Chronic, Acute, Stage III History of Present Illness 80-year-old male with past medical history of Ischemic heart disease, atrial fibrillation, hyperlipidemia, congestive heart failure, history of renal stone prostate cancer and chronic kidney disease, came to the hospital with complaint of dizziness and near syncope. I was called to see the patient because of elevated BUN and creatinine patient has history of chronic kidney disease and seems like the baseline creatinine has been around 1.5-1.9. Additional Remarks Patient is alert, develop obstruction, now with bladder irrigation, abd. pain is better. Review of Systems General Constitutional: Fatigue Objective Data Data 05/21/16 05/22/16 18:59 06:59 Intake Total 720 ml 540 ml Output Total 400 ml 2480 ml Balance 320 ml -1940 ml Intake Oral 720 ml 240 ml Other 300 ml Output Urine Total 400 ml 2480 ml Stool Total 0 ml # Bowel Movements 0 Vital Signs Date Time Temp Pulse Resp B/P Pulse Ox O2 Delivery O2 Flow Rate FiO2 05/22/16 11:24 98.2 62 18 179/84 93 05/22/16 09:00 93 Room Air 05/22/16 07:34 98.3 65 16 138/73 95 05/22/16 05:05 98.4 59 18 131/66 95 05/22/16 00:05 98.3 60 18 125/62 95 05/21/16 21:23 98.0 60 18 131/63 94 05/21/16 21:00 Room Air -: 05/22/16 0843 05/22/16 0843 Physical Exam General Appearance: No Acute Distress, Comfortable Eyes Eye Exam: Pupils Equal Throat Throat Exam: Oral Mucosa [place] & Moist Pulmonary Resp Exam: Breath Sounds Equal, No Distress, Decreased Bases Cardiology CV Exam: Regular, Normal Sinus Rhythm Gastrointestinal/Abdomen GI Exam: Soft, Non-Tender, Bowel Sounds Present Extremeties Extremities Exam: Trace Edema Neurologic Neuro Exam: Alert, Awake, Oriented Psychiatric Psych Exam: Appropriate Responses Assessment/Plan Assessment Summary: JENNIFER/Acute Renal Failure, Hypertension, CKD Stage III Problem List: (1) Bladder mass (2) Obstructive uropathy (3) Non-STEMI (non-ST elevated myocardial infarction) (4) Hematuria (5) CKD (chronic kidney disease), stage III (6) Acute kidney injury (7) TIA (transient ischemic attack) Plan His baseline Creatinine is close to 1.5-1.9. JENNIFER with possible cardiorenal syndrome vs UTI. Admitted with TIA Creatinine improving slowly. Bladder cancer and hematuria Urine culture pending Avoid Nephrotoxins. Now with bladder irrigation. Creatinine close to his baseline. Jasson Tipton MD May 22, 2016 16:51
[2016-05-22] MEDS: PRAVASTATIN SOD 80 MG TAB PO SCH (21:31)
[2016-05-23] VITALS (7 sets, daily range): BP systolic 125–173; BP diastolic 57–79; PULSE 60–66; RESP 16–20; TEMP 97.6–98.6; O2SAT 95–97
[2016-05-23] MEDS: INSULIN ASPART SUPPLEMENTAL SCALE SQ SCH ×4 (06:21→20:39)
--- NOTE | 2016-05-23 07:28 | PD.CARD.PN ---
Subjective Subjective Remarks Pt without CV complaints Objective Medications Current Medications Medications (Trade) Dose Ordered Sig/Brianne Route Start Time Stop Time Status Last Admin (Zofran Inj) 4 mg Q8HR PRN IV PUSH 05/17/16 04:30 (Tylenol) 650 mg Q4H PRN PO 05/17/16 04:30 05/19/16 02:28 (Coreg) 3.125 mg Q12HR PO 05/17/16 09:00 05/22/16 21:31 (NS Flush) 2 ml BID IV FLUSH 05/17/16 21:00 05/22/16 21:31 (NS Flush) 2 ml UNSCH PRN IV FLUSH 05/17/16 12:30 (D50w (Vial) Inj) 25 ml UNSCH PRN IV PUSH 05/17/16 12:30 (Glucagon Inj) 1 mg UNSCH PRN OTHER 05/17/16 12:30 (Aspirin Chew) 81 mg DAILY CHEW 05/18/16 09:00 05/22/16 09:23 (Theragran M Tab) 1 tab DAILY PO 05/18/16 09:00 05/22/16 09:23 (Pravachol) 80 mg HS PO 05/17/16 21:00 05/22/16 21:31 ([place] 5-325 Mg) 1 tab Q4H PRN PO 05/19/16 13:30 05/22/16 09:02 (B & O Supp) 60 mg Q6HR PRN RECTAL 05/22/16 11:00 Vital Signs / I&O Vital Signs Date Time Temp Pulse Resp B/P Pulse Ox O2 Delivery O2 Flow Rate FiO2 05/23/16 04:30 98.6 60 16 125/57 95 05/22/16 23:44 98.9 61 16 137/63 94 05/22/16 20:30 Room Air 05/22/16 20:15 98.1 59 19 129/58 96 05/22/16 16:00 97.5 60 18 134/65 97 05/22/16 11:24 98.2 62 18 179/84 93 05/22/16 09:00 93 Room Air 05/22/16 07:34 98.3 65 16 138/73 95 I/O 05/22/16 05/22/16 05/22/16 05/23/16 05/23/1617 07:00 15:00 23:00 07:00 15:00 23:00 Intake Total 240 ml 720 ml 0 ml Output Total 400 ml 480 ml 0 ml Balance -160 ml 240 ml 0 ml Intake Oral 240 ml 720 ml 0 ml Output Urine Total 400 ml 480 ml 0 ml Stool Total 0 ml # Bowel Movements 0 0 Physical Exam GENERAL: Well developed, well nourished. No acute distress. HEENT: Jugular venous pressure is normal. CHEST: Lungs clear to auscultation bilaterally. Unlabored respiratory effort. CARDIAC: Regular rate and rhythm without S3, S4, or murmur. ABDOMEN: Soft, nontender. Bowel sounds present. EXTREMITIES: No clubbing, cyanosis, no edema. Laboratory Laboratory Tests Test 05/22/16 08:43 White Blood Count 14.2 TH/MM3 Red Blood Count 2.90 MIL/MM3 Hemoglobin 8.4 GM/DL Hematocrit 25.2 % Mean Corpuscular Volume 87.0 FL Mean Corpuscular Hemoglobin 28.8 PG Mean Corpuscular Hemoglobin 33.1 % Concent Red Cell Distribution Width 14.1 % Platelet Count 440 TH/MM3 Mean Platelet Volume 8.5 FL Neutrophils (%) (Auto) 69.2 % Lymphocytes (%) (Auto) 17.9 % Monocytes (%) (Auto) 8.4 % Eosinophils (%) (Auto) 3.7 % Basophils (%) (Auto) 0.8 % Neutrophils # (Auto) 9.8 TH/MM3 Lymphocytes # (Auto) 2.5 TH/MM3 Monocytes # (Auto) 1.2 TH/MM3 Eosinophils # (Auto) 0.5 TH/MM3 Basophils # (Auto) 0.1 TH/MM3 CBC Comment DIFF FINAL Differential Comment Sodium Level 137 MEQ/L Potassium Level 4.6 MEQ/L Chloride Level 102 MEQ/L Carbon Dioxide Level 26.0 MEQ/L Anion Gap 9 MEQ/L Blood Urea Nitrogen 31 MG/DL Creatinine 1.94 MG/DL Estimat Glomerular Filtration 33 ML/MIN Rate Random Glucose 106 MG/DL Calcium Level 8.8 MG/DL Assessment and Plan Problem List: (1) Renal insufficiency (2) Vertigo (3) TIA (transient ischemic attack) Assessment and Plan Acute on chronic systolic heart failure - ECHO EF 25%, comparable to last at 30% -enzymes felt elevated secondary to CHF and Cr>2 -on BB, no ASH with CKD -appreciate renal input and fluid management -stable and reasonable for d/c Ischemic cardiomyopathy - stable, pt not a revasc candidate at this time secondary to hematuria Renal Insufficiency- per renal Atrial fibrillation- s/p ablation, no anticoagulation with hematuria Dizziness/possible TIA- pt was on supra-therapeutic pradaxa dose at the time Dispo- ok for d/c from CV perspective, follow up in 1 week María Reyes MD May 23, 2016 07:28
[2016-05-23] MEDS: CARVEDILOL 3.125 MG TAB PO SCH ×2 (08:53→20:38)
[2016-05-23] MEDS: MULTIVITAMINS/MINERALS THERAPEUTIC TAB PO SCH (08:53)
[2016-05-23] MEDS: SODIUM CHLORIDE 0.9% FLUSH 10 ML FLUSH IV FLUSH SCH ×2 (08:53→20:39)
[2016-05-23] MEDS: ASPIRIN 81 MG CHEW TAB CHEW SCH (08:53)
[2016-05-23 10:56] LABS: AUTOMATED NEUTROPHIL # 13.8 TH/MM3 (1.8-7.7); BASOPHIL # 0.2 TH/MM3 (0-0.2); BASOPHIL % 1.2 % (0.0-2.0); EOSINOPHIL # 0.6 TH/MM3 (0-0.4); EOSINOPHIL % 3.3 % (0.0-4.0); HEMATOCRIT 26.7 % (39.0-51.0); HEMO FLAGS DIFF FINAL; LYMPH % 9.5 % (9.0-44.0); LYMPHOCYTE # 1.6 TH/MM3 (1.0-4.8); MEAN CELL VOLUME 88.1 FL (80.0-100.0); MEAN CORPUSCULAR HEMOGLOBIN 27.9 PG (27.0-34.0); MEAN CORPUSCULAR HGB CONC 31.6 % (32.0-36.0); MONO % 6.3 % (0.0-8.0); NEUT % 79.7 % (16.0-70.0); PLATELET COUNT 448 TH/MM3 (150-450); RED BLOOD COUNT 3.03 MIL/MM3 (4.50-5.90); RED CELL DISTRIBUTION WIDTH 14.3 % (11.6-17.2); WHITE BLOOD COUNT 17.3 TH/MM3 (4.0-11.0)
[2016-05-23] MEDS: ACETAMINOPHEN/HYDROcodone 325 MG/5 MG TAB PO PRN ×3 (11:19→20:38)
[2016-05-23 11:49] LABS: BICARBONATE 22.1 MEQ/L (21.0-32.0); POTASSIUM 4.6 MEQ/L (3.5-5.1)
--- NOTE | 2016-05-23 12:20 | HHI.PR ---
Subjective Remarks Follow-up non-ST elevation CT/TIA/bladder cancer with gross hematuria/acute renal failure 05/21/16-patient seen and examined, Day with still hematuria however per patient's son there has been some improvement in the past 24 hours. Denies any shortness of breath 05/22/16-patient seen and examined. Denies any shortness of breath. No acute event overnight. Currently afebrile. 05/23/16-patient seen and examined, complains of constipation. Denies any bladder spasm. Day clear without any evidence of hematuria Objective Vitals Vital Signs Date Time Temp Pulse Resp B/P Pulse Ox O2 Delivery O2 Flow Rate FiO2 05/23/16 11:50 97.6 60 20 133/62 96 05/23/16 08:00 98.0 60 20 173/79 97 05/23/16 08:00 Room Air 05/23/16 04:30 98.6 60 16 125/57 95 05/22/16 23:44 98.9 61 16 137/63 94 05/22/16 20:30 Room Air 05/22/16 20:15 98.1 59 19 129/58 96 05/22/16 16:00 97.5 60 18 134/65 97 I/O 05/22/16 05/22/16 05/22/16 05/23/16 05/23/16 05/23/16 07:00 15:00 23:00 07:00 15:00 23:00 Intake Total 240 ml 720 ml 0 ml Output Total 400 ml 480 ml 0 ml Balance -160 ml 240 ml 0 ml Intake Oral 240 ml 720 ml 0 ml Output Urine Total 400 ml 480 ml 0 ml Stool Total 0 ml # Bowel Movements 0 0 Result Diagram: 05/23/16 0954 05/23/16 0954 Imaging Last Impressions Head CT 05/17/16 0119 Signed Impressions: Service Date/Time: May 02:24 - CONCLUSION: No acute disease. Jayson Lopez Jr., MD Renal Ultrasound 05/17/16 0000 Signed Impressions: Service Date/Time: May 22:43 - CONCLUSION: Unremarkable renal ultrasound except for right renal cyst. Truman Villareal MD Chest X-Ray 05/17/16 0000 Signed Impressions: Service Date/Time: May 03:17 - CONCLUSION: No acute disease. Jayson Lopez Jr., MD Carotid Artery Ultrasound 05/17/16 0000 Signed Impressions: Service Date/Time: May 22:57 - CONCLUSION: No evidence for hemodynamically significant stenosis. Truman Villareal MD Objective Remarks GENERAL: NAD SKIN: Warm and dry. HEAD: Normocephalic. EYES: No scleral icterus. No injection or drainage. NECK: Supple, trachea midline. No JVD or lymphadenopathy. CARDIOVASCULAR: Regular rate and rhythm without murmurs, gallops, or rubs. RESPIRATORY: Breath sounds equal bilaterally. No accessory muscle use. GASTROINTESTINAL: Abdomen soft, non-tender, nondistended. MUSCULOSKELETAL: No cyanosis, or edema. : Day in place with evidence of gross hematuria BACK: Nontender without obvious deformity. No CVA tenderness. A/P Problem List: (1) Bladder cancer ICD Code: C67.9 Status: Acute (2) Vertigo ICD Code: R42 Status: Acute (3) Acute kidney injury ICD Code: N17.9 Status: Acute (4) CKD (chronic kidney disease), stage III ICD Code: N18.3 Status: Chronic (5) Hematuria ICD Code: R31.9 Status: Acute (6) Constipation ICD Code: K59.00 Status: Acute Assessment and Plan 80-year-old man with Acute TIA with a history of chronic atrial fibrillation CT of the brain is negative however cannot obtain MRI of the brain due to history of AICD pacemaker; carotid ultrasound which was negative; 2-D echo with EF of 25-30%. Neurology is following however this is more likely vertigo versus acute TIA. PT to treat and eval Secondary to patient is not a candidate for anticoagulation at this time Anemia: Secondary to acute blood loss from bladder cancer Continue to monitor H&H and transfuse for hemoglobin less than 8 Bladder cancer status post cystoscopy with hematuria.-Improving Wean CBI Currently on B&A 2/2 Bladder spasm Appreciate input from urology Monitor H&H. Monitor CBC Continue to hold oral anticoagulation Non-ST elevation CT Appreciate input from cardiology Elevated troponin Ilikely due to acute kidney injury superimposed on chronic kidney disease stage III. No further workup Acute kidney injury superimposed on chronic kidney disease stage III Renal indices improving with IV fluid hydration Appreciate input from nephrology Avoid all nephrotoxic drugs and monitor BUN and creatinine- Hyperlipidemia Continue Pravastatin 80 mg by mouth at bedtime History of chronic atrial fibrillation status post AICD and pacemaker Coreg 3.125 mg by mouth every 12 hours started by cardiology OAC contraindicated at this time 2/2 gross hematuria Constipation: Start stool softener DVT prophylaxis: Bilateral SCDs Discharge Planning Likely discharge 05/24/16 Jimbo Ndiaye MD May 23, 2016 12:20
[2016-05-23] MEDS ORDERED: MAGNESIUM HYDROXIDE SUSP 30 ML CUP PO PRN (12:30)
--- NOTE | 2016-05-23 12:49 | HHI.PR ---
Subjective Patient symptoms today c/o constipation. No BM x 4 days. Denies bladder spasms. No issues with gabriel since yesterday. Objective Vital Signs Vital Signs Date Time Temp Pulse Resp B/P Pulse Ox O2 Delivery O2 Flow Rate FiO2 05/23/16 11:50 97.6 60 20 133/62 96 05/23/16 08:00 98.0 60 20 173/79 97 05/23/16 08:00 Room Air 05/23/16 04:30 98.6 60 16 125/57 95 05/22/16 23:44 98.9 61 16 137/63 94 05/22/16 20:30 Room Air 05/22/16 20:15 98.1 59 19 129/58 96 05/22/16 16:00 97.5 60 18 134/65 97 Intake & Output 05/23/16 05/23/16 07:00 19:00 Intake Total 0 ml Output Total 0 ml Balance 0 ml Intake Oral 0 ml Output Urine Total 0 ml # Bowel Movements 0 Result Diagram: 05/23/1695305/23/1654 Objective Remarks NAD. A/O x 3 Three-way Gabriel catheter in place urine yellow, clear on slow CBI. Medications and IVs Current Medications Medications (Trade) Dose Ordered Sig/Brianne Route Start Time Stop Time Status Last Admin (Zofran Inj) 4 mg Q8HR PRN IV PUSH 05/17/16 04:30 (Tylenol) 650 mg Q4H PRN PO 05/17/16 04:30 05/19/16 02:28 (Coreg) 3.125 mg Q12HR PO 05/17/16 09:00 05/23/16 08:53 (NS Flush) 2 ml BID IV FLUSH 05/17/16 21:00 05/23/16 08:53 (NS Flush) 2 ml UNSCH PRN IV FLUSH 05/17/16 12:30 (D50w (Vial) Inj) 25 ml UNSCH PRN IV PUSH 05/17/16 12:30 (Glucagon Inj) 1 mg UNSCH PRN OTHER 05/17/16 12:30 (Aspirin Chew) 81 mg DAILY CHEW 05/18/16 09:00 05/23/16 08:53 (Theragran M Tab) 1 tab DAILY PO 05/18/16 09:00 05/23/16 08:53 (Pravachol) 80 mg HS PO 05/17/16 21:00 05/22/16 21:31 ([place] 5-325 Mg) 1 tab Q4H PRN PO 05/19/16 13:30 05/23/16 11:19 (B & O Supp) 60 mg Q6HR PRN RECTAL 05/22/16 11:00 (Colace) 100 mg BID PO 05/23/16 21:00 (Milk Of Magnkenji Liannalisa) 30 ml Q6H PRN PO 05/23/16 12:30 Assessment and Plan Problem List: (1) Hematuria ICD Code: R31.9 Status: Acute (2) Acute kidney injury ICD Code: N17.9 Status: Acute (3) Bladder cancer ICD Code: C67.9 Status: Acute Assessment and Plan -Renal U/S negative for hydronephrosis. Creatinine improving. No acute intervention needed at this time. Likely ATN. -Hgb stable. -continue Gabriel catheter. Hematuria expected due to blood thinners following TURBT. If catheter stops draining, recommend changing to large (22Fr) 3 way gabriel and starting CBI. Otherwise, home with gabriel. Will void trial as outpatient. 05/19/2016 Status post replacement of occluded 16 [place] catheter with a 20 Iranian unit with improved drainage. Irrigate Gabriel with sterile water when necessary. Further urologic management as previously outlined by patient's established urologist . 05/20/2016 Worsening hematuria yesterday necessitating placement of a 3 way Gabriel and implantation of CBI. Continues to have hematuria today and also complains of bladder spasms Will continue with CBI And tolterodine for bladder spasms Continue to hold heparin until the hematuria resolves Monitor hematocrit 05/21/2016 Conservative management. Wean CBI. Follow H/H. Transfuse if less than 8 or becomes symptomatic. Anticoagulation on hold. Creatinine improving. Appreciate other service input. d/w daughter, Ying. 05/22/2016 Gabriel catheter successfully irrigated for large amount of clots. Draining crystal clear urine with moderate CBI. Wean CBI to clear. If it continues to clot off over next 24 hours, will need to go to OR. Hgb stable. Creatinine improving. D/C tolterodine. B&O suppositories for bladder spasms. D/w patient, son. 05/23/2016 Clamp CBI Treat constipation. If urine remains clear, D/C home tomorrow with gabriel. Void trial early next week. D/w son, daughters, patient Porfirio Grubbs MD May 23, 2016 12:49
[2016-05-23] MEDS ORDERED: POLYETHYLENE GLYCOL 17 GM PKG PO ONE (13:00)
[2016-05-23] MEDS ORDERED: BISACODYL 10 MG SUPP RECTAL ONE (13:00)
--- NOTE | 2016-05-23 17:08 | HHI.NPPN ---
Subjective General Problems: Anemia, Heart Disease, Hypertension Renal Failure: Chronic, Acute, Stage III History of Present Illness 80-year-old male with past medical history of Ischemic heart disease, atrial fibrillation, hyperlipidemia, congestive heart failure, history of renal stone prostate cancer and chronic kidney disease, came to the hospital with complaint of dizziness and near syncope. I was called to see the patient because of elevated BUN and creatinine patient has history of chronic kidney disease and seems like the baseline creatinine has been around 1.5-1.9. Additional Remarks Patient is alert, remain with bladder irrigation, abd. pain is better, urine is getting clear. Review of Systems General Constitutional: Fatigue Objective Data Data 05/22/16 05/23/16 19:00 07:00 Intake Total 720 ml 0 ml Output Total 480 ml 0 ml Balance 240 ml 0 ml Intake Oral 720 ml 0 ml Output Urine Total 480 ml 0 ml # Bowel Movements 0 0 Vital Signs Date Time Temp Pulse Resp B/P Pulse Ox O2 Delivery O2 Flow Rate FiO2 05/23/16 11:50 97.6 60 20 133/62 96 05/23/16 08:00 98.0 60 20 173/79 97 05/23/16 08:00 Room Air 05/23/16 04:30 98.6 60 16 125/57 95 05/22/16 23:44 98.9 61 16 137/63 94 05/22/16 20:30 Room Air 05/22/16 20:15 98.1 59 19 129/58 96 -: 05/23/16 0954 05/23/16 0954 Physical Exam General Appearance: No Acute Distress, Comfortable Eyes Eye Exam: Pupils Equal Throat Throat Exam: Oral Mucosa [place] & Moist Pulmonary Resp Exam: Breath Sounds Equal, No Distress, Decreased Bases Cardiology CV Exam: Regular, Normal Sinus Rhythm Gastrointestinal/Abdomen GI Exam: Soft, Non-Tender, Bowel Sounds Present Extremeties Extremities Exam: Trace Edema Neurologic Neuro Exam: Alert, Awake, Oriented Psychiatric Psych Exam: Appropriate Responses Assessment/Plan Assessment Summary: JENNIFER/Acute Renal Failure, Hypertension, CKD Stage III Problem List: (1) Bladder mass (2) Obstructive uropathy (3) Non-STEMI (non-ST elevated myocardial infarction) (4) Hematuria (5) CKD (chronic kidney disease), stage III (6) Acute kidney injury (7) TIA (transient ischemic attack) Plan His baseline Creatinine is close to 1.5-1.9. JENNIFER with possible cardiorenal syndrome vs UTI. Admitted with TIA Creatinine improving slowly. Bladder cancer and hematuria Urine culture no growth. Urine is getting clear. Creatinine is 2.0, close to his baseline. Jasson Tipton MD May 23, 2016 17:08
[2016-05-23 18:53] LABS: MAGNESIUM 2.3 MG/DL (1.5-2.5)
[2016-05-23] MEDS: PRAVASTATIN SOD 80 MG TAB PO SCH (20:37)
[2016-05-23] MEDS: DOCUSATE SODIUM 100 MG CAP PO SCH (20:38)
[2016-05-24] VITALS: BP 115/59; PULSE 60; RESP 20; TEMP 96.2; O2SAT 96
[2016-05-24] MEDS: ACETAMINOPHEN/HYDROcodone 325 MG/5 MG TAB PO PRN (01:42)
[2016-05-24 04:00] VITALS: BP 117/59; PULSE 60; RESP 20; TEMP 96.9; O2SAT 90
[2016-05-24] MEDS: INSULIN ASPART SUPPLEMENTAL SCALE SQ SCH ×2 (06:21→11:00)
[2016-05-24 07:46] VITALS: PULSE 75
[2016-05-24 08:00] VITALS: BP 131/62; PULSE 61; RESP 18; TEMP 98.6
[2016-05-24] MEDS: MULTIVITAMINS/MINERALS THERAPEUTIC TAB PO SCH (08:55)
[2016-05-24] MEDS: ASPIRIN 81 MG CHEW TAB CHEW SCH (08:55)
[2016-05-24] MEDS: DOCUSATE SODIUM 100 MG CAP PO SCH (08:55)
[2016-05-24] MEDS: CARVEDILOL 3.125 MG TAB PO SCH (08:55)
[2016-05-24] MEDS: SODIUM CHLORIDE 0.9% FLUSH 10 ML FLUSH IV FLUSH SCH (08:56)
--- NOTE | 2016-05-24 11:22 | HHI.PR ---
Subjective Remarks Follow-up non-ST elevation NH/TIA/bladder cancer with gross hematuria/acute renal failure 05/21/16-patient seen and examined, Day with still hematuria however per patient's son there has been some improvement in the past 24 hours. Denies any shortness of breath 05/22/16-patient seen and examined. Denies any shortness of breath. No acute event overnight. Currently afebrile. 05/23/16-patient seen and examined, complains of constipation. Denies any bladder spasm. Day clear without any evidence of hematuria 05/24/16-patient seen and examined; CBI clamped and removed; +BM x 2; no acute event overnight. Discussed with son Objective Vitals Vital Signs Date Time Temp Pulse Resp B/P Pulse Ox O2 Delivery O2 Flow Rate FiO2 05/24/16 08:00 98.6 61 18 131/62 05/24/16 07:46 75 05/24/16 07:46 Room Air 05/24/16 04:00 96.9 60 20 117/59 90 05/24/16 00:00 96.2 60 20 115/59 96 05/23/16 20:25 66 05/23/16 20:00 97.7 63 20 128/67 96 05/23/16 19:30 Room Air 05/23/16 18:14 61 05/23/16 18:14 60 05/23/16 16:00 98.0 60 20 125/59 96 05/23/16 11:50 97.6 60 20 133/62 96 I/O 05/23/16 05/23/16 05/23/16 05/24/16 05/24/16 05/24/16 07:00 15:00 23:00 07:00 15:00 23:00 Intake Total 0 ml 1000 ml 250 ml 0 ml Output Total 0 ml 600 ml Balance 0 ml 1000 ml -350 ml 0 ml Intake Oral 0 ml 1000 ml 250 ml IV Total 0 ml Output Urine Total 0 ml 600 ml # Bowel Movements 0 1 1 Result Diagram: 05/23/16 0954 05/23/16 0954 Imaging Last Impressions Head CT 05/17/16 0119 Signed Impressions: Service Date/Time: May 02:24 - CONCLUSION: No acute disease. Jayson Lopez Jr., MD Renal Ultrasound 05/17/16 0000 Signed Impressions: Service Date/Time: May 22:43 - CONCLUSION: Unremarkable renal ultrasound except for right renal cyst. Truman Villareal MD Chest X-Ray 05/17/16 Signed Impressions: Service Date/Time: May 03:17 - CONCLUSION: No acute disease. Jayson Lopez Jr., MD Carotid Artery Ultrasound 05/17/16 Signed Impressions: Service Date/Time: May 22:57 - CONCLUSION: No evidence for hemodynamically significant stenosis. Truman Villareal MD Objective Remarks GENERAL: NAD SKIN: Warm and dry. HEAD: Normocephalic. EYES: No scleral icterus. No injection or drainage. NECK: Supple, trachea midline. No JVD or lymphadenopathy. CARDIOVASCULAR: Regular rate and rhythm without murmurs, gallops, or rubs. RESPIRATORY: Breath sounds equal bilaterally. No accessory muscle use. GASTROINTESTINAL: Abdomen soft, non-tender, nondistended. MUSCULOSKELETAL: No cyanosis, or edema. : Day in place with clear urine BACK: Nontender without obvious deformity. No CVA tenderness. Procedures none A/P Problem List: (1) Bladder cancer ICD Code: C67.9 Status: Acute (2) Vertigo ICD Code: R42 Status: Resolved (3) Acute kidney injury ICD Code: N17.9 Status: Acute (4) CKD (chronic kidney disease), stage III ICD Code: N18.3 Status: Chronic (5) Hematuria ICD Code: R31.9 Status: Resolved (6) Constipation ICD Code: K59.00 Status: Resolved (7) Non-STEMI (non-ST elevated myocardial infarction) ICD Code: I21.4 Status: Resolved (8) TIA (transient ischemic attack) ICD Code: G45.9 Status: Resolved Assessment and Plan 80-year-old man with Acute TIA with a history of chronic atrial fibrillation CT of the brain is negative however cannot obtain MRI of the brain due to history of AICD pacemaker; carotid ultrasound which was negative; 2-D echo with EF of 25-30%. Neurology is following however this is more likely vertigo versus acute TIA. PT to treat and eval Secondary to Hematuria patient is not a candidate for anticoagulation at this time Anemia: Secondary to acute blood loss from bladder cancer Continue to monitor H&H and transfuse for hemoglobin less than 8 Bladder cancer status post cystoscopy with hematuria.-Improving s/p CBI and continue with Day Currently on B&A 2/2 Bladder spasm Appreciate input from urology Monitor H&H. Monitor CBC Continue to hold oral anticoagulation Non-ST elevation [place] Appreciate input from cardiology Elevated troponin Ilikely due to acute kidney injury superimposed on chronic kidney disease stage III. No further workup Acute kidney injury superimposed on chronic kidney disease stage III Renal indices improving with IV fluid hydration Appreciate input from nephrology Avoid all nephrotoxic drugs and monitor BUN and creatinine- Hyperlipidemia Continue Pravastatin 80 mg by mouth at bedtime History of chronic atrial fibrillation status post AICD and pacemaker Coreg 3.125 mg by mouth every 12 hours started by cardiology OAC contraindicated at this time 2/2 gross hematuria Constipation: Resolved with stool softener DVT prophylaxis: Bilateral SCDs Discharge Planning discharge today 05/24/16 Jimbo Ndiaye MD May 24, 2016 11:22
--- NOTE | 2016-05-24 11:23 | HHI.FF ---
Face to Face Verification Diagnosis: (1) Non-STEMI (non-ST elevated myocardial infarction) (2) Bladder cancer (3) CKD (chronic kidney disease), stage III (4) Acute kidney injury (5) TIA (transient ischemic attack) (6) Hematuria (7) Constipation (8) Vertigo Home Health Nursing Order: Signs/symptoms of disease process Nursing assessment with vital signs I have seen patient Tavo Saxena on 05/24/16. My clinical findings support the need for the requested home health care services because: Patient has SOB Deconditioned w/ increased weakness I certify that my clinical findings support that this patient is homebound because: Poor cardiac reserve Jimbo Ndiaey MD May 24, 2016 11:23
--- NOTE | 2016-05-24 11:25 | HHI.DS ---
Discharge Summary Admission Date May 17, 2016 at 04:18 Discharge Date: May 24, 2016 Admitting Diagnosis NSTEMI, Presyncope (1) Bladder cancer ICD Code: C67.9 (2) Vertigo ICD Code: R42 (3) Acute kidney injury ICD Code: N17.9 (4) CKD (chronic kidney disease), stage III ICD Code: N18.3 (5) Hematuria ICD Code: R31.9 (6) Constipation ICD Code: K59.00 (7) Non-STEMI (non-ST elevated myocardial infarction) ICD Code: I21.4 (8) TIA (transient ischemic attack) ICD Code: G45.9 Procedures none Brief History - From Admission 80-year-old white male with a history of chronic atrial fibrillation with history ischemic cardiomyopathy with EF 25-30%, recent diagnosis of bladder cancer with hematuria by Dr. Grubbs who presents emergency room with acute onset of dizziness while he was watching TV at 10:30 yesterday evening associated with generalized weakness with any type of incision changes. At that time, patient states that he did not have any chest pain, palpitations, nor any shortness of breath. Due to the symptoms of acute dizziness with associated nausea, he came into emergency for evaluation. While he was in the emergency room, he was found to have elevated troponin I and admitted to the hospital for evaluation with Dr. Reyes, his optimization consultant. He states that he due to his hematuria from his recent cystoscope procedure in which bladder cancer was diagnosed, he was told to stop his aspirin and Pradaxa. He has not been on these 2 medications. He states the past 24-48 hours he has hematuria has improved since he lost all his urologist. He states that he has not had previous symptoms of this type of dizziness. He denies any other symptoms of difficulty swallowing, numbness, speech problems, nor any focalized weakness. He states that he usually walks independently and currently lives alone but does receive home health care. He denies any symptoms of dysuria or urinary frequency or urgency. Day catheter was placed during this admission. Currently, he is chest pain-free and has no palpitations. He reports that his dizziness has improved overnight and now has resolved. CBC/BMP: 05/23/16 0954 05/23/16 0954 Significant Findings Laboratory Tests Test 05/22/16 05/23/16 08:43 09:54 White Blood Count 14.2 TH/MM3 17.3 TH/MM3 (4.0-11.0) (4.0-11.0) Red Blood Count 2.90 MIL/MM3 3.03 MIL/MM3 (4.50-5.90) (4.50-5.90) Hemoglobin 8.4 GM/DL 8.4 GM/DL (13.0-17.0) (13.0-17.0) Hematocrit 25.2 % 26.7 % (39.0-51.0) (39.0-51.0) Monocytes (%) (Auto) 8.4 % (0.0-8.0) Neutrophils # (Auto) 9.8 TH/MM3 13.8 TH/MM3 (1.8-7.7) (1.8-7.7) Monocytes # (Auto) 1.2 TH/MM3 1.1 TH/MM3 (0-0.9) (0-0.9) Eosinophils # (Auto) 0.5 TH/MM3 0.6 TH/MM3 (0-0.4) (0-0.4) Blood Urea Nitrogen 31 MG/DL (7-18) 31 MG/DL (7-18) Creatinine 1.94 MG/DL 2.01 MG/DL (0.60-1.30) (0.60-1.30) Estimat Glomerular Filtration 33 ML/MIN (>89) 32 ML/MIN (>89) Rate Mean Corpuscular Hemoglobin 31.6 % Concent (32.0-36.0) Neutrophils (%) (Auto) 79.7 % (16.0-70.0) Random Glucose 114 MG/DL (74-106) Imaging Last Impressions Head CT 05/17/16 0119 Signed Impressions: Service Date/Time: May 02:24 - CONCLUSION: No acute disease. Jayson Lopez Jr., MD Renal Ultrasound 05/17/16 0000 Signed Impressions: Service Date/Time: May 22:43 - CONCLUSION: Unremarkable renal ultrasound except for right renal cyst. Truman Villareal MD Chest X-Ray 05/17/16 0000 Signed Impressions: Service Date/Time: May 03:17 - CONCLUSION: No acute disease. Jayson Lopez Jr., MD Carotid Artery Ultrasound 05/17/16 0000 Signed Impressions: Service Date/Time: May 22:57 - CONCLUSION: No evidence for hemodynamically significant stenosis. Truman Villareal MD PE at Discharge GENERAL: NAD SKIN: Warm and dry. HEAD: Normocephalic. EYES: No scleral icterus. No injection or drainage. NECK: Supple, trachea midline. No JVD or lymphadenopathy. CARDIOVASCULAR: Regular rate and rhythm without murmurs, gallops, or rubs. RESPIRATORY: Breath sounds equal bilaterally. No accessory muscle use. GASTROINTESTINAL: Abdomen soft, non-tender, nondistended. MUSCULOSKELETAL: No cyanosis, or edema. : Day in place with clear urine BACK: Nontender without obvious deformity. No CVA tenderness. Hospital Course Acute TIA with a history of chronic atrial fibrillation CT of the brain is negative however cannot obtain MRI of the brain due to history of AICD pacemaker; carotid ultrasound which was negative; 2-D echo with EF of 25-30%. Neurology is following however this is more likely vertigo versus acute TIA. PT to treat and eval Secondary to Hematuria patient is not a candidate for anticoagulation at this time Anemia: Secondary to acute blood loss from bladder cancer Continue to monitor H&H and transfuse for hemoglobin less than 8 Bladder cancer status post cystoscopy with hematuria.-Improving s/p CBI and continue with Day Currently on B&A 2/2 Bladder spasm Appreciated input from urology Monitor H&H. Continue to hold oral anticoagulation Non-ST elevation [place] Appreciate input from cardiology Elevated troponin Ilikely due to acute kidney injury superimposed on chronic kidney disease stage III. No further workup Acute kidney injury superimposed on chronic kidney disease stage III Renal indices improved with IV fluid hydration Appreciate input from nephrology Avoid all nephrotoxic drugs and monitor BUN and creatinine- Hyperlipidemia Treated with Pravastatin 80 mg by mouth at bedtime History of chronic atrial fibrillation status post AICD and pacemaker Coreg 3.125 mg by mouth every 12 hours started by cardiology OAC contraindicated at this time 2/2 gross hematuria Constipation: Resolved with stool softener DVT prophylaxis: Bilateral SCDs Pt Condition on Discharge: Stable Discharge Disposition: Disch w/ Home Health Serv Discharge Time: > 30 minutes Discharge Instructions DIET: Follow Instructions for: Heart Healthy Diet Activities you can perform: Regular-No Restrictions Follow up Referrals: Cardiology PCP Follow-up - 1 Week Urology - 2-3 Days New Medications: Carvedilol (Coreg) 3.125 Mg Tab 3.125 MG PO Q12HR Blood Pressure Management #60 TAB Continued Medications: Aspirin (Aspirin) 325 Mg Tab 325 MG PO DAILY #30 Ref 0 TAB Cholecalciferol (Vitamin D) 1,000 Unit Tab 1000 UNITS PO DAILY Nutritional Supplement #1 Ref 0 BOTTLE Docusate Sodium (Colace) 100 Mg Cap 100 MG PO BID Constipation #60 Ref 0 CAP Multiple Vitamins W/ Minerals (Multivitamin Adults) 1 Tab 1 TAB PO DAILY Nutritional Supplement Ref 0 TAB Nitroglycerin SL (Nitrostat SL) 0.4 Mg Subl 0.4 MG SL DIRECTED 1 tablet under the tongue as needed for chest pain. Repeat every 5 minutes for a total of 3 DOSES or call 911 if NO relief. PRN CHEST PAIN #100 Ref 0 TAB.SL [place]-3 Fatty Acids (Fish Oil 1000 mg) 1 Cap Cap 1000 MG PO DAILY Simvastatin (Simvastatin) 40 Mg Tab 40 MG PO HS Cholesterol Management #30 Ref 0 TAB Discontinued Medications: Hydrocodone-Acetaminophen (Hydrocodone-Acetaminophen) 5-325 mg Tab 1 TAB PO Q4H PRN PAIN SCALE 1 TO 10 #30 TAB Sulfamethoxazole-Trimethoprim (Bactrim DS) 800-160 Mg Tab 1 TAB PO BID Infection #20 Ref 0 TAB Jimbo Ndiaye MD May 24, 2016 11:25
[2016-05-24] MEDS ORDERED: CARV3.125 PO (11:27)
[2016-05-24 11:58] VITALS: BP 130/70
--- NOTE | 2016-05-24 18:48 | HHI.NPPN ---
Subjective General Problems: Anemia, Heart Disease, Hypertension Renal Failure: Chronic, Acute, Stage III History of Present Illness 80-year-old male with past medical history of Ischemic heart disease, atrial fibrillation, hyperlipidemia, congestive heart failure, history of renal stone prostate cancer and chronic kidney disease, came to the hospital with complaint of dizziness and near syncope. I was called to see the patient because of elevated BUN and creatinine patient has history of chronic kidney disease and seems like the baseline creatinine has been around 1.5-1.9. Additional Remarks Patient was seen in AM, and has no complain, with clear urine. Review of Systems General Constitutional: Fatigue Objective Data Data 05/23/16 05/24/16 19:00 07:00 Intake Total 1000 ml 250 ml Output Total 600 ml Balance 1000 ml -350 ml Intake Oral 1000 ml 250 ml Output Urine Total 600 ml # Bowel Movements 1 1 Vital Signs Date Time Temp Pulse Resp B/P Pulse Ox O2 Delivery O2 Flow Rate FiO2 05/24/16 11:58 130/70 05/24/16 08:00 98.6 61 18 131/62 05/24/16 07:46 75 05/24/16 07:46 Room Air 05/24/16 04:00 96.9 60 20 117/59 90 05/24/16 00:00 96.2 60 20 115/59 96 05/23/16 20:25 66 05/23/16 20:00 97.7 63 20 128/67 96 05/23/16 19:30 Room Air -: 05/23/16 0954 05/23/16 0954 Physical Exam General Appearance: No Acute Distress, Comfortable Eyes Eye Exam: Pupils Equal Throat Throat Exam: Oral Mucosa [place] & Moist Pulmonary Resp Exam: Breath Sounds Equal, No Distress, Decreased Bases Cardiology CV Exam: Regular, Normal Sinus Rhythm Gastrointestinal/Abdomen GI Exam: Soft, Non-Tender, Bowel Sounds Present Extremeties Extremities Exam: Trace Edema Neurologic Neuro Exam: Alert, Awake, Oriented Psychiatric Psych Exam: Appropriate Responses Assessment/Plan Assessment Summary: JENNIFER/Acute Renal Failure, Hypertension, CKD Stage III Problem List: (1) Bladder mass (2) Obstructive uropathy (3) Non-STEMI (non-ST elevated myocardial infarction) (4) Hematuria (5) CKD (chronic kidney disease), stage III (6) Acute kidney injury (7) TIA (transient ischemic attack) Plan His baseline Creatinine is close to 1.5-1.9. JENNIFER with possible cardiorenal syndrome vs UTI. Admitted with TIA Creatinine improving slowly. Bladder cancer and hematuria Urine culture no growth. Urine is getting clear. Creatinine is 2.0, close to his baseline. Patient for D/C. To follow with urology and Nephrology. Jasson Tipton MD May 24, 2016 18:48
--- NOTE | 2016-05-28 13:40 | PQ ---
Physician Query Response Document PATIENT: ALEKSANDR GARCIA : 1935 ADMIT DATE: 05/17/2016 4:18 AM DISCH DATE: 05/24/2016 12:50 PM RESPONDING PROVIDER #: Haylee QUERY TEXT: Conflicting Documentation Clarification A single mention or documentation of multiple diagnoses for the same clinical presentation appears in the record. Please clarify the diagnosis/diagnoses. Non-ST elevation [place]. Please also document if the condition is: -- Confirmed and current -- Confirmed, treated and resolved -- Ruled out -- Other, please specify If you have any additional questions/comments and/or concerns, please do not hesitate to reach out to the CDI/Coding Hotline, Ext. [phone]. The patient's Clinical Indicators include: Discharge Summary under Hospital Course lists: Non-ST elevation NC Appreciate input from cardiology Elevated troponin I?likely due to acute kidney injury superimposed on chronic kidney disease stage II I. No further workup Non-ST/Non-STEMI [place] documented also in multiple progress notes Progress Note of 05/18/16 documents: 3. Elevated troponin I?likely due to acute kidney injury superimpo sed on chronic kidney disease stage III with cardiorenal syndrome. Patient seen by Dr. Reyes an d no further workup to be done. Dr. Reyes's Consultation dated 05/17/16: IMPRESSIONS : Elevated troponin - This appears to be most consistent with a cardiorenal syndrome given his acute on chronic renal insufficiency and history of ischemic cardiomyopathy with recent CHF exacerbation. Labs: Troponin I of on 05/17/16 at 01:45, down to 1.17 on 05/17/16 at 10:25, and 0.87 on 15:26 with no further measurements. Query created by: Layne Patterson on 05/25/2016 2:09 PM RESPONSE TEXT: Provider disagreed with this CDI query. Electronically signed by: Jimbo Ndiaye MD 05/28/2016 1:35 PM
== END 2016-05-24 12:50 | disposition home health service (06) | DRG 69 ==
LOC: NEPC 00:45 → NEDA 04:18 → HCIS 07:57 → N04B 05-21 00:38
PROVIDERS: ADMIT Hospitalist; ATTEND Hospitalist
DX: G45.9 Transient cerebral ischemic attack, unspecified (principal); I21.4 Non-ST elevation (NSTEMI) myocardial infarction; N17.9 Acute kidney failure, unspecified; I50.23 Acute on chronic systolic (congestive) heart failure; D62 Acute posthemorrhagic anemia; I13.0 Hypertensive heart and chronic kidney disease with heart failure and stage 1 through stage 4 chronic kidney disease, or unspecified chronic kidney disease; N18.3 Chronic kidney disease, stage 3 (moderate); I48.2 Chronic atrial fibrillation; Z95.810 Presence of automatic (implantable) cardiac defibrillator; I25.10 Atherosclerotic heart disease of native coronary artery without angina pectoris; Z95.5 Presence of coronary angioplasty implant and graft; I25.5 Ischemic cardiomyopathy; R31.0 Gross hematuria; C67.9 Malignant neoplasm of bladder, unspecified; N32.89 Other specified disorders of bladder; H81.10 Benign paroxysmal vertigo, unspecified ear; E78.5 Hyperlipidemia, unspecified; K59.00 Constipation, unspecified; Z87.891 Personal history of nicotine dependence; Z85.46 Personal history of malignant neoplasm of prostate; Z79.02 Long term (current) use of antithrombotics/antiplatelets; Z79.82 Long term (current) use of aspirin
CPT/HCPCS: 51700; 70450; 71010; 76775; 80048; 80053; 80061; 81001; 82948; 83036; 83735; 83880; 84100; 84132; 84484; 85014; 85018; 85025; 85610; 85730; 87086; 93005; 93306; 93880; 96361; 96365; J0696; J1644; J1815; J2270; J7030

== ENCOUNTER 2016-05-29 08:59 | Emergency (ER) | payer MEDICARE, OTHER ==
[~2016-05-29] VITALS: Ht 170.2 cm; Wt 115.0 kg
[2016-05-29 09:02] VITALS: BP 140/65; PULSE 62; RESP 20; TEMP 99; O2SAT 96
--- NOTE | 2016-05-29 10:03 | PD ---
HPI Chief Complaint: Plant Machinist Problem Time Seen by Provider: 09:53 Travel History International Travel<30 days: No Contact w/Intl Traveler<30days: No Traveled to known affect area: No History of Present Illness HPI This is an 80-year-old male who presents to the emergency department with Day catheter trouble. 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 Grubbs, who presents today with no urine through his catheter since this morning and urine coming around his catheter. This is been constant. He denies any blood clots in his catheter bag, denies any abdominal pain, fevers or chills. He has a follow-up appointment with Dr. Grubbs tomorrow, and thinks he was supposed to get his catheter out then. PFSH Past Medical History Hx Anticoagulant Therapy: Yes (paradoxa) Arthritis: Yes Atrial Fibrillation: Yes Heart Rhythm Problems: Yes Cancer: Yes Cardiac Catheterization: Yes Cardiovascular Problems: Yes (mi; pacer, defib) High Cholesterol: Yes Chemotherapy: No Chest Pain: No Congestive Heart Failure: Yes Coronary Artery Disease: Yes Diminished Hearing: Yes (gumaro hearing aids) Endocrine: No Gastrointestinal Disorders: Yes ( DIVERTICULITIS) Genitourinary: Yes Hypertension: Yes Immune Disorder: No Implanted Vascular Access Dvce: Yes Kidney Stones: Yes Musculoskeletal: No Neurologic: No Psychiatric: No Reproductive: No Respiratory: No Immunizations Current: Yes Myocardial Infarction: Yes (2004) Radiation Therapy: Yes Renal Failure: No Tetanus Vaccination: < 5 Years Influenza Vaccination: Yes ?: Not Past Surgical History Abdominal Surgery: No AICD: Yes Appendectomy: Yes Arteriovenous Shunt: No Coronary Stent: Yes (X1) 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) Endocrine Surgery: No Eye Surgery: Yes Genitourinary Surgery: Yes (tumor removed on bladder) Insulin Pump: No Joint Replacement: Yes (LEFT KNEE) Oral Surgery: No Pacemaker: Yes Thoracic Surgery: No Tonsillectomy: Yes Other Surgery: Yes (bladder surgery 5 days ago ) Social History Alcohol Use: Yes (occ) Tobacco Use: No (QUIT: AGE 48) Substance Use: No Allergies-Medications (Allergen,Severity, Reaction): Coded Allergies: Isosorbide (Verified Allergy, Severe, Itching, 05/29/16) AND SWELLING Lipitor (Verified Adverse Reaction, Severe, SORE JOINTS, 05/29/16) Reported Meds & Prescriptions Reported Meds & Active Scripts Active Coreg (Carvedilol) 3.125 Mg Tab 3.125 Mg PO Q12HR Reported Colace (Docusate Sodium) 100 Mg Cap 100 Mg PO BID Aspirin 325 Mg Tab 325 Mg PO DAILY Multivitamin Adults (Multiple Vitamins W/ Minerals) 1 Tab 1 Tab PO DAILY Fish Oil 1000 mg ([place]-3 Fatty Acids) 1 Cap Cap 1,000 Mg PO DAILY Nitrostat SL (Nitroglycerin) 0.4 Mg Subl 0.4 Mg SL DIRECTED PRN 1 tablet under the tongue as needed for chest pain. Repeat every 5 minutes for a total of 3 DOSES or call 911 if NO relief. Vitamin D (Cholecalciferol) 1,000 Unit Tab 1,000 Units PO DAILY Simvastatin 40 Mg Tab 40 Mg PO HS Review of Systems Except as stated in HPI: all other systems reviewed are Neg Physical Exam Narrative GENERAL:Well appearing, no acute distress SKIN: Old ecchymoses in the bilateral upper extremities. HEAD: Atraumatic. Normocephalic. EYES: Pupils equal and round. No injection or drainage. ENT: Moist mucous membranes NECK: Trachea midline. CARDIOVASCULAR: Regular rate and rhythm. No murmur appreciated. 3+ bilateral pitting edema in the lower extremities. RESPIRATORY: Clear to auscultation. Breath sounds equal bilaterally. GASTROINTESTINAL: Abdomen soft, non-tender, nondistended. MUSCULOSKELETAL: No obvious deformities. NEUROLOGICAL: Awake and alert. No obvious cranial nerve deficits. Moving all extremities. PSYCHIATRIC: Appropriate mood and affect; insight and judgment normal. Data Data Last Documented VS Vital Signs Date Time Temp Pulse Resp B/P Pulse Ox O2 Delivery O2 Flow Rate FiO2 05/29/16 09:48 60 19 97 Room Air 05/29/16 09:02 99.0 140/65 MDM Medical Decision Making Medical Screen Exam Complete: Yes Emergency Medical Condition: Yes Interpretation(s) Afebrile, no tachycardia, normotensive Differential Diagnosis Day catheter malfunction, obstruction, hematuria Narrative Course This is an 80-year-old male who presents to the emergency department having had a bladder resection early May here with no drainage from his Day catheter. He has no blood clots in the urine. We had difficulty flushing the Day catheter. Catheter was removed and the patient was able to urinate without difficulty. I spoke to Dr. Grubbs who will follow up with the patient in clinic tomorrow and is comfortable leaving the catheter out. Patient will be discharged. Diagnosis Primary Impression: Malfunction of Day catheter Qualified Code: T83.011A - Malfunction of Day catheter, initial encounter Patient Instructions: General Instructions Additional Instructions: Follow up with Dr. grubbs tomorrow in clinic. If you have difficulty urinating or severe abdominal pain return to the emergency department. Med/Other Pt SpecificInfo: No Change to Meds Disposition: 01 DISCHARGE HOME Condition: Stable Lacie Donis MD May 29, 2016 10:03
== END 2016-05-29 11:43 | disposition home or self-care (01) ==
LOC: NEPD 08:59
DX: T83.011A Breakdown (mechanical) of indwelling urethral catheter, initial encounter (principal); I10 Essential (primary) hypertension; E78.00 Pure hypercholesterolemia, unspecified; H91.93 Unspecified hearing loss, bilateral; Z98.890 Other specified postprocedural states; Z79.01 Long term (current) use of anticoagulants; Z87.448 Personal history of other diseases of urinary system; Z87.39 Personal history of other diseases of the musculoskeletal system and connective tissue; Z86.79 Personal history of other diseases of the circulatory system; Z87.19 Personal history of other diseases of the digestive system
CPT/HCPCS: 99283

== ENCOUNTER → 2016-05-29 | Outpatient (CLI) | payer MEDICARE, OTHER ==
[~2016-05-29] MED LIST changes: -BACT800T5 PO; +CARV3.125 PO; -FURO40TA PO; -HYDR-3516 PO; -POTA1TAB4 PO; -SPIR25TA PO
[2016-05-29 15:54] LABS: BASOPHIL # 0.1 TH/MM3 (0-0.2); BASOPHIL % 1.1 % (0.0-2.0); EOSINOPHIL # 0.2 TH/MM3 (0-0.4); EOSINOPHIL % 1.4 % (0.0-4.0); HEMATOCRIT 29.2 % (39.0-51.0); HEMO FLAGS DIFF FINAL; LYMPH % 14.5 % (9.0-44.0); LYMPHOCYTE # 1.8 TH/MM3 (1.0-4.8); MEAN CELL VOLUME 88.7 FL (80.0-100.0); MEAN CORPUSCULAR HEMOGLOBIN 27.4 PG (27.0-34.0); MEAN CORPUSCULAR HGB CONC 30.9 % (32.0-36.0); MONO % 10.6 % (0.0-8.0); NEUT % 72.4 % (16.0-70.0); PLATELET COUNT 436 TH/MM3 (150-450); RED CELL DISTRIBUTION WIDTH 15.5 % (11.6-17.2); WHITE BLOOD COUNT 12.5 TH/MM3 (4.0-11.0)
[2016-05-29 16:02] LABS: ALT (GPT) 25 U/L (12-78); ANION GAP 9 MEQ/L (5-15); AST (GOT) 19 U/L (15-37); BICARBONATE 24.5 MEQ/L (21.0-32.0); BLOOD UREA NITROGEN 44 MG/DL (7-18); CHLORIDE 106 MEQ/L (98-107); GLOMERULAR FILTRATION RATE 30 ML/MIN (>89); POTASSIUM 4.6 MEQ/L (3.5-5.1); SODIUM (NA) 139 MEQ/L (136-145)
[2016-05-29 16:04] LABS: ALKALINE PHOSPHATASE 126 U/L (45-117); TOTAL BILIRUBIN ADULT 0.4 MG/DL (0.2-1.0)
== END ==
LOC: PLAB 12:02
PROVIDERS: ATTEND Internal Medicine
DX: I12.9 Hypertensive chronic kidney disease with stage 1 through stage 4 chronic kidney disease, or unspecified chronic kidney disease (principal); N18.3 Chronic kidney disease, stage 3 (moderate); I25.10 Atherosclerotic heart disease of native coronary artery without angina pectoris
CPT/HCPCS: 36415; 80053; 85025

== ENCOUNTER → 2016-06-04 | Outpatient (CLI) | payer MEDICARE, OTHER ==
[~2016-06-04] MED LIST changes: -PRAD150C PO; -RAMI10CA PO
[2016-06-04 08:41] LABS: POTASSIUM 3.9 MEQ/L (3.5-5.1)
[2016-06-04 08:44] LABS: BICARBONATE 28.3 MEQ/L (21.0-32.0)
== END ==
LOC: PLAB 08:03
PROVIDERS: ATTEND Internal Medicine Interventional Cardiology
DX: I47.2 Ventricular tachycardia (principal); I50.9 Heart failure, unspecified
CPT/HCPCS: 36415; 80048